=== PATIENT | female | born 1945 | race Caucasian/White ===

== ENCOUNTER 2017-07-14 08:00 | Day surgery (SDC) | payer MEDICARE ==
[2017-07-14 08:45] VITALS: BP 134/79; PULSE 84; RESP 14; TEMP 98; O2SAT 100
[2017-07-14] MEDS ORDERED: LIDOCAINE HCL 1% 20 ML VIAL ONE (09:23)
--- NOTE | 2017-07-14 09:29 | RADRPT ---
EXAM DATE/TIME: 07/14/2017 09:03 [facility] COMPARISON: No previous studies available for comparison. INDICATIONS : Post left thoracentesis. MEDICAL HISTORY : None. SURGICAL HISTORY : None. ENCOUNTER: Initial ACUITY: 1 day PAIN SCORE: 0/10 LOCATION: Left chest FINDINGS: No significant pneumothorax status post left-sided thoracentesis. There is partial left upper lobe co llapse and trace residual effusion. Right lung is clear. Cardiomediastinal contours are within normal limits. Bony thorax is intact. CONCLUSION: 1. Near interval resolution of left sided pleural effusion following thoracentesis without pneumothor ax. 2. Partial left upper lobe collapse. This is an atypical pattern for compressive atelectasis. Conside r further evaluation for endobronchial lesion as clinically warranted. Yousif Westbrook MD on July 14, 2017 at 9:24 Board Certified Radiologist. This report was verified electronically.
[2017-07-14 09:31] VITALS: BP 90/40; PULSE 72; RESP 18; TEMP 97.3; O2SAT 100
[2017-07-14 09:46] VITALS: BP 91/46; PULSE 74; RESP 17; O2SAT 100
--- NOTE | 2017-07-14 09:56 | RADRPT ---
EXAM DATE/TIME: 07/14/2017 08:38 [facility] COMPARISON: No previous studies available for comparison. INDICATIONS : Left pleural effusion. MEDICAL HISTORY : Breast cancer. Pleural effusion. SURGICAL HISTORY : Left thoracentesis. ENCOUNTER: Initial ACUITY: 1 day PAIN SCORE: 2/10 LOCATION: Left chest FLUID: Total volume of 950 cc of clear, yellow fluid was removed. Fluid was sent to lab for ordered studies. TECHNIQUE: 1. Ultrasound guidance for thoracentesis. 2. Thoracentesis. The risks, benefits, and alternatives to ultrasound guided thoracentesis were explained to the patien t in lay simple terms, including the risk of bleeding and infection. Written and verbal informed con sent was obtained. Appropriate area for thoracentesis was marked under ultrasound guidance with the patient in the uprig ht position. Overlying skin was prepped and draped in the usual sterile fashion and with local anest hetic, a dermatotomy was made with an 11 blade scalpel. A 6 Japanese thoracentesis catheter was placed in the pleural space and fluid was removed. Catheter was then removed and a sterile dressing applie d. There were no immediate complications. The patient tolerated the procedure well and the left the ultrasound suite in stable condition. Chest radiograph is to be obtained. CONCLUSION: Uncomplicated ultrasound guided thoracentesis. Palomo Bedoya MD on July 14, 2017 at 9:55 Board Certified Radiologist. This report was verified electronically.
[2017-07-14 10:33] LABS: TOTAL PROTEIN,PLEURAL FLUID 4.7 GM/DL
[2017-07-14 11:16] LABS: PLEURAL FLUID LYMPHS 90 %
== END 2017-07-14 09:57 | disposition home or self-care (01) ==
LOC: HRAD 08:00 → HRIP 08:02 → HRAD 09:57
PROVIDERS: ATTEND Internal Medicine Hematology & Oncology
DX: J90 Pleural effusion, not elsewhere classified (principal); Z85.3 Personal history of malignant neoplasm of breast
CPT/HCPCS: 32555; 71010; 82945; 84157; 87015; 87070; 87116; 87205; 87206; 88112; 88305; 89051; C1729

== ENCOUNTER 2017-10-25 09:56 | Emergency (ER) | payer MEDICARE ==
[~2017-10-25] VITALS: Ht 157.5 cm; Wt 45.0 kg
[2017-10-25 09:58] VITALS: BP 188/90; PULSE 94; RESP 18; TEMP 97.7; O2SAT 97
[2017-10-25] MEDS ORDERED: MIDAZOLAM HCL 2 MG/2 ML VIAL ONE (10:18)
[2017-10-25] MEDS ORDERED: ALPRAZolam 0.5 MG TAB PO ONE (10:45)
[2017-10-25] MEDS ORDERED: SODIUM CHLORIDE 0.9% FLUSH 10 ML FLUSH IVF PRN (10:45)
--- NOTE | 2017-10-25 10:52 | PD ---
HPI Chief Complaint: Respiratory Symptoms Time Seen by Provider: 10:38 Travel History International Travel<30 days: No Contact w/Intl Traveler<30days: No Traveled to known affect area: No History of Present Illness HPI The patient is a 72-year-old female who presents to the emergency department for shortness of breath. The patient has a history of breast cancer. Intermittently for the last 30 years. The patient is undergone chemotherapy, radiation therapy, and mastectomy. The patient had reactivation of her medication and is currently on chemotherapy pill, is currently followed by Dr. Gore. The patient moved from [place] 6 months ago, has been seen Dr. Gore, has one previous episode of pleural effusion on the left that was drained. However, she was advised that she had a new pleural effusion on the right that may need to be drained. The patient called the oncology office and they referred her to the emergency department. The shortness of breath has been progressing over the last month, is worse with lying supine as well as exertion. She denies any chest pain, diaphoresis, nausea, or vomiting associated with shortness of breath. However, she does state she's had some moderate nausea since she started a new chemotherapy pill. The patient denies any history of pulmonary embolism or DVT. PFSH Past Medical History Hx Anticoagulant Therapy: Yes (asa) Social History Alcohol Use: No Tobacco Use: No Substance Use: No Allergies-Medications (Allergen,Severity, Reaction): Coded Allergies: No Known Allergies (Unverified , 10/25/17) Review of Systems Except as stated in HPI: all other systems reviewed are Neg General / Constitutional: No: Fever HENT: No: Lightheadedness Cardiovascular: Positive: Dyspnea on exertion, No: Chest Pain or Discomfort Respiratory: Positive: Shortness of Breath, Orthopnea Gastrointestinal: Positive: Nausea (secondary to her chemotherapy medication ) , No: Vomiting, Abdominal Pain Musculoskeletal: No: Weakness Physical Exam Narrative GENERAL: Awake, alert, pleasant 72-year-old female who appears her stated age and is in no acute respiratory distress. SKIN: Focused skin assessment warm/dry. HEAD: Atraumatic. Normocephalic. EYES: Pupils equal and round. No scleral icterus. No injection or drainage. ENT: No nasal bleeding or discharge. Mucous membranes pink and moist. NECK: Trachea midline. No JVD. CARDIOVASCULAR: Regular rate and rhythm. No murmur appreciated. RESPIRATORY: No accessory muscle use. Diminished breath sounds of the right and left base. GASTROINTESTINAL: Abdomen soft, non-tender, nondistended. MUSCULOSKELETAL: No obvious deformities. No clubbing. No cyanosis. No edema. Calves are soft bilaterally. NEUROLOGICAL: Awake and alert. No obvious cranial nerve deficits. Motor grossly within normal limits. Normal speech. PSYCHIATRIC: Appropriate mood and affect; insight and judgment normal. Data Data Last Documented VS Vital Signs Date Time Temp Pulse Resp B/P (MAP) Pulse Ox O2 Delivery O2 Flow Rate FiO2 10/25/17 10:26 95 25 95 Room Air 10/25/17 09:58 97.7 188/90 (122) Orders Orders Fentanyl Inj (Fentanyl Inj) (10/25/17 10:18) Midazolam Inj (Versed Inj) (10/25/17 10:18) Complete Blood Count With Diff (10/25/17 10:44) Comprehensive Metabolic Panel (10/25/17 10:44) B-Type Natriuretic Peptide (10/25/17 10:44) Act Partial Throm Time (Ptt) (10/25/17 10:44) Prothrombin Time / Inr (Pt) (10/25/17 10:44) Magnesium (Mg) (10/25/17 10:44) Ckmb (Isoenzyme) Profile (10/25/17 10:44) Troponin I (10/25/17 10:44) Iv Access Insert/Monitor (10/25/17 10:44) Electrocardiogram (10/25/17 10:44) Ecg Monitoring (10/25/17 10:44) Oximetry (10/25/17 10:44) Oxygen Administration (10/25/17 10:44) Chest, Single Ap (10/25/17 10:44) Sodium Chloride 0.9% Flush (Ns Flush) (10/25/17 10:45) Alprazolam (Xanax) (10/25/17 10:45) Labs Laboratory Tests Test 10/25/17 11:10 White Blood Count 5.6 TH/MM3 Red Blood Count 3.73 MIL/MM3 Hemoglobin 13.3 GM/DL Hematocrit 38.9 % Mean Corpuscular Volume 104.3 FL Mean Corpuscular Hemoglobin 35.6 PG Mean Corpuscular Hemoglobin Concent 34.2 % Red Cell Distribution Width 16.3 % Platelet Count 176 TH/MM3 Mean Platelet Volume 9.2 FL Neutrophils (%) (Auto) 73.5 % Lymphocytes (%) (Auto) 11.5 % Monocytes (%) (Auto) 12.0 % Eosinophils (%) (Auto) 1.8 % Basophils (%) (Auto) 1.2 % Neutrophils # (Auto) 4.1 TH/MM3 Lymphocytes # (Auto) 0.6 TH/MM3 Monocytes # (Auto) 0.7 TH/MM3 Eosinophils # (Auto) 0.1 TH/MM3 Basophils # (Auto) 0.1 TH/MM3 CBC Comment DIFF FINAL Differential Comment Prothrombin Time 10.6 SEC Prothromb Time International Ratio 1.0 RATIO Activated Partial Thromboplast Time 26.0 SEC Blood Urea Nitrogen 9 MG/DL Creatinine 0.76 MG/DL Random Glucose 96 MG/DL Total Protein 6.8 GM/DL Albumin 3.3 GM/DL Calcium Level 9.1 MG/DL Magnesium Level 2.0 MG/DL Alkaline Phosphatase 91 U/L Aspartate Amino Transf (AST/SGOT) 60 U/L Alanine Aminotransferase (ALT/SGPT) 45 U/L Total Bilirubin 0.6 MG/DL Sodium Level 137 MEQ/L Potassium Level 4.1 MEQ/L Chloride Level 102 MEQ/L Carbon Dioxide Level 27.3 MEQ/L Anion Gap 8 MEQ/L Estimat Glomerular Filtration Rate 74 ML/MIN Total Creatine Kinase 69 U/L Troponin I LESS THAN 0.02 NG/ML B-Type Natriuretic Peptide 51 PG/ML MDM Medical Decision Making Medical Screen Exam Complete: Yes Emergency Medical Condition: Yes Medical Record Reviewed: Yes Interpretation(s) EKG reveals sinus rhythm with frequent ectopic premature complex. Last Impressions Chest X-Ray 10/25/17 1044 Signed Impressions: Service Date/Time: Wednesday, October 25, 2017 10:56 - CONCLUSION: 1. Bilateral effusions larger on the left than the right with consolidative change in the lung bases. Hussein Floyd MD Laboratory Tests Test 10/25/17 11:10 White Blood Count 5.6 TH/MM3 Red Blood Count 3.73 MIL/MM3 Hemoglobin 13.3 GM/DL Hematocrit 38.9 % Mean Corpuscular Volume 104.3 FL Mean Corpuscular Hemoglobin 35.6 PG Mean Corpuscular Hemoglobin Concent 34.2 % Red Cell Distribution Width 16.3 % Platelet Count 176 TH/MM3 Mean Platelet Volume 9.2 FL Neutrophils (%) (Auto) 73.5 % Lymphocytes (%) (Auto) 11.5 % Monocytes (%) (Auto) 12.0 % Eosinophils (%) (Auto) 1.8 % Basophils (%) (Auto) 1.2 % Neutrophils # (Auto) 4.1 TH/MM3 Lymphocytes # (Auto) 0.6 TH/MM3 Monocytes # (Auto) 0.7 TH/MM3 Eosinophils # (Auto) 0.1 TH/MM3 Basophils # (Auto) 0.1 TH/MM3 CBC Comment DIFF FINAL Differential Comment Prothrombin Time 10.6 SEC Prothromb Time International Ratio 1.0 RATIO Activated Partial Thromboplast Time 26.0 SEC Blood Urea Nitrogen 9 MG/DL Creatinine 0.76 MG/DL Random Glucose 96 MG/DL Total Protein 6.8 GM/DL Albumin 3.3 GM/DL Calcium Level 9.1 MG/DL Magnesium Level 2.0 MG/DL Alkaline Phosphatase 91 U/L Aspartate Amino Transf (AST/SGOT) 60 U/L Alanine Aminotransferase (ALT/SGPT) 45 U/L Total Bilirubin 0.6 MG/DL Sodium Level 137 MEQ/L Potassium Level 4.1 MEQ/L Chloride Level 102 MEQ/L Carbon Dioxide Level 27.3 MEQ/L Anion Gap 8 MEQ/L Estimat Glomerular Filtration Rate 74 ML/MIN Total Creatine Kinase 69 U/L Troponin I LESS THAN 0.02 NG/ML B-Type Natriuretic Peptide 51 PG/ML Differential Diagnosis Differential diagnosis includes pleural effusion, pulmonary edema, pneumonia, pulmonary embolism, acute coronary syndrome, cardiomyopathy, metastatic disease. Narrative Course IV was established, labs are drawn and sent, and the patient was placed on cardiac telemetry monitoring and continuous pulse oximetry monitoring. EKG was ordered and interpreted. Chest x-ray was obtained. Chest x-ray does reveal bilateral effusions, left greater than the right. Consolidative changes noted in the bases bilaterally. BNP is unremarkable. Laboratory evaluation is unremarkable. The patient does have bilateral effusions, left greater than right, may benefit from therapeutic thoracentesis. A call was placed to the patient's oncologist, Dr. Gore, and Dr. Dykes was on-call. The patient will be referred to outpatient interventional radiology for outpatient therapeutic ultrasound-guided thoracentesis. Patient is advised to return if symptoms worsen or progress. Diagnosis Primary Impression: Bilateral pleural effusion Additional Instructions: Please provide the patient a copy of her x-ray results and lab results at discharge. Call [facility] outpatient to schedule outpatient thoracentesis by interventional radiology. Med/Other Pt SpecificInfo: No Change to Meds Disposition: 01 DISCHARGE HOME Condition: Stable Serafin Law MD Oct 25, 2017 10:52
--- NOTE | 2017-10-25 11:09 | RADRPT ---
EXAM DATE/TIME: 10/25/2017 10:56 [facility] COMPARISON: CHEST EXPIRATION ONLY, July 14, 2017, 9:03. INDICATIONS : Short of breath. MEDICAL HISTORY : metastatic breast cancer. breast cancer 30 years ago and 5 years ago also SURGICAL HISTORY : None. ENCOUNTER: Initial ACUITY: 1 week PAIN SCORE: 0/10 LOCATION: Bilateral chest FINDINGS: The exam demonstrates a moderate-sized pleural effusion on the left. There is a small effusion on the right. There is consolidative change in both lower lobes. There is diffuse interstitial prominence. The heart is normal in size. The visualized bony structures are grossly intact. There are degenerativ e changes throughout the spine. CONCLUSION: 1. Bilateral effusions larger on the left than the right with consolidative change in the lung bases. Hussein Floyd MD on October 25, 2017 at 11:05 Board Certified Radiologist. This report was verified electronically.
[2017-10-25 11:51] LABS: AUTOMATED NEUTROPHIL # 4.1 TH/MM3 (1.8-7.7); BASOPHIL # 0.1 TH/MM3 (0-0.2); BASOPHIL % 1.2 % (0.0-2.0); EOSINOPHIL # 0.1 TH/MM3 (0-0.4); EOSINOPHIL % 1.8 % (0.0-4.0); HEMATOCRIT 38.9 % (35.0-46.0); HEMOGLOBIN 13.3 GM/DL (11.6-15.3); LYMPH % 11.5 % (9.0-44.0); LYMPHOCYTE # 0.6 TH/MM3 (1.0-4.8); MEAN CELL VOLUME 104.3 FL (80.0-100.0); MEAN CORPUSCULAR HEMOGLOBIN 35.6 PG (27.0-34.0); MEAN CORPUSCULAR HGB CONC 34.2 % (32.0-36.0); MEAN PLATELET VOLUME 9.2 FL (7.0-11.0); MONOCYTE # 0.7 TH/MM3 (0-0.9); NEUT % 73.5 % (16.0-70.0); PLATELET COUNT 176 TH/MM3 (150-450); RED BLOOD COUNT 3.73 MIL/MM3 (4.00-5.30); RED CELL DISTRIBUTION WIDTH 16.3 % (11.6-17.2); WHITE BLOOD COUNT 5.6 TH/MM3 (4.0-11.0)
[2017-10-25 11:59] LABS: PROTHROMBIN TIME - PATIENT 10.6 SEC (9.8-11.6)
[2017-10-25 12:00] LABS: ALBUMIN 3.3 GM/DL (3.4-5.0); AST (GOT) 60 U/L (15-37); BICARBONATE 27.3 MEQ/L (21.0-32.0); BLOOD UREA NITROGEN 9 MG/DL (7-18); CALCIUM 9.1 MG/DL (8.5-10.1); CHLORIDE 102 MEQ/L (98-107); CREATININE 0.76 MG/DL (0.50-1.00); GLOMERULAR FILTRATION RATE 74 ML/MIN (>89); GLUCOSE,RANDOM 96 MG/DL (74-106); SODIUM (NA) 137 MEQ/L (136-145)
[2017-10-25 12:01] LABS: ALT (GPT) 45 U/L (10-53)
[2017-10-25 12:05] LABS: ALKALINE PHOSPHATASE 91 U/L (45-117); TOTAL BILIRUBIN ADULT 0.6 MG/DL (0.2-1.0); TOTAL PROTEIN 6.8 GM/DL (6.4-8.2); TROPONIN I LESS THAN 0.02 NG/ML (0.02-0.05)
[2017-10-25] MEDS ORDERED: ASPI-516 CHEW (13:55)
[2017-10-25] MEDS ORDERED: AFIN5TAB PO (13:55)
[2017-10-25] MEDS ORDERED: MULTTAB67 PO (13:55)
[2017-10-25] MEDS ORDERED: BIOTCAP PO (13:55)
[2017-10-25] MEDS ORDERED: CALC12502 PO (13:55)
[2017-10-25] MEDS ORDERED: LEVO100T5 PO (13:55)
[2017-10-25] MEDS ORDERED: ALPR0.5T3 PO (13:55)
[2017-10-25] MEDS ORDERED: EXEM25TA (13:55)
[2017-10-25] MEDS ORDERED: VITA2000 PO (13:55)
[2017-10-25 13:56] VITALS: BP 189/95; PULSE 96; RESP 20; O2SAT 98
[2017-10-25] MEDS ORDERED: ALPR0.25 PO (13:56)
--- NOTE | 2017-10-26 14:26 | EKG ---
Date Performed: 10/25/2017 Time Performed: 11:23:24 PTAGE: 72 years EKG: Sinus rhythm WITH FREQUENT ECTOPIC PREMATURE COMPLEXES POSSIBLE LEFT ATRIAL ENLARGEMENT ABNORMAL RHYTHM ECG NO PREVIOUS TRACING DOCTOR: Marcela Jasso Interpretating Date/Time 10/26/2017 14:25:36
== END 2017-10-25 16:59 | disposition home or self-care (01) ==
LOC: NEPC 09:56
DX: J90 Pleural effusion, not elsewhere classified (principal); R06.02 Shortness of breath; Z85.3 Personal history of malignant neoplasm of breast; R94.31 Abnormal electrocardiogram [ECG] [EKG]
CPT/HCPCS: 71045; 80053; 82550; 83735; 83880; 84484; 85025; 85610; 85730; 93005; 99285; J2250; J3010

== ENCOUNTER 2017-10-28 09:52 | Day surgery (SDC) | payer MEDICARE ==
[~2017-10-28 09:52] MED LIST: AFIN5TAB PO; ALPR0.25 PO; ALPR0.5T3 PO; ASPI-516 CHEW; BIOTCAP PO; CALC12502 PO; EXEM25TA; LEVO100T5 PO; MULTTAB67 PO; VITA2000 PO
--- NOTE | 2017-10-28 11:11 | PD.RAD ---
Post US Procedure Prog Note Pre Procedure Diagnosis: (1) Recurrent left pleural effusion Post Procedure Diagnosis: (1) Recurrent left pleural effusion Procedure Date: Oct 28, 2017 Supervising Radiologist: Niraj Barragan Proceduralist/Assist: Valerie Newton RDMS Anesthesia: Local, Conscious Sedation Plan of Activity Patient to Unit: ROPU Patient Condition: Good See PACS Report for procedural detail/treatment Drainage Procedure Procedure 1 Imaging Guidance: Ultrasound Side: Left Procedure Type: Thoracentesis Drainage: Suction Fluid Removal (CCs): 1100 Fluid Description: Clear, Yellow Plan CXR then monitoring in ROPU prior to discharge. Niraj Barragan MD Oct 28, 2017 11:11
[2017-10-28 11:40] VITALS: BP 124/74; PULSE 86; RESP 20; TEMP 98.4; O2SAT 92
--- NOTE | 2017-10-28 11:45 | RADRPT ---
EXAM DATE/TIME: 10/28/2017 11:27 [facility] COMPARISON: CHEST EXPIRATION ONLY, July 14, 2017, 9:03. INDICATIONS : Post thoracentesis left chest MEDICAL HISTORY : Carcinoma, breast. SURGICAL HISTORY : None. ENCOUNTER: Initial ACUITY: 1 day PAIN SCORE: 0/10 LOCATION: Right chest FINDINGS: A single frontal expiratory view of the chest was performed. There small bilateral pleural effusions. There is bibasilar passive atelectasis. Minimal scarring left mid lung zone. No visible pneumothorax .. The cardio-mediastinal contours and bronchopulmonary markings are unremarkable for an expiratory exam . Osseous structures are intact. CONCLUSION: Bilateral pleural effusions right greater left. Bibasilar passive atelectasis. Kirk Pichardo MD on October 28, 2017 at 11:42 Board Certified Radiologist. This report was verified electronically.
[2017-10-28 11:55] VITALS: BP 134/89; PULSE 78; RESP 20; O2SAT 98
--- NOTE | 2017-10-28 15:27 | RADRPT ---
EXAM DATE/TIME: 10/28/2017 10:29 [facility] COMPARISON: EXTERNAL COMPARISON: CHEST SINGLE AP, October 25, 2017, 10:56. US GUIDED THORACENTESIS LEFT, July 14, 2017, 8:38. [facility] EXPIRATION ONLY, October 28, 2017, 11:27. [facility], XR CHEST PA & LAT , Oct 07 2017, No vember 2016. INDICATIONS : Left pleural effusion. MEDICAL HISTORY : Carcinoma, breast. Mets to liver and bone. Pleural effusion. Depression. Anticoagulant therapy, Asp irin. SURGICAL HISTORY : Tonsillectomy. Thoracentesis. Hernia repair. D&C x3. Mastectomy. ENCOUNTER: Subsequent ACUITY: 3 months PAIN SCORE: 0/10 LOCATION: Left chest FLUID: Total volume of 1,100 cc of clear, yellow fluid was removed. Fluid was discarded. Thoracentesis was therapeutic only. TECHNIQUE: 1. Ultrasound guidance for thoracentesis. 2. Thoracentesis. The risks, benefits, and alternatives to ultrasound guided thoracentesis were explained to the patien t in lay simple terms, including the risk of bleeding and infection. Written and verbal informed con sent was obtained. Appropriate area for thoracentesis was marked under ultrasound guidance with the patient in the uprig ht position. Overlying skin was prepped and draped in the usual sterile fashion and with local anest hetic, a dermatotomy was made with an 11 blade scalpel. A 6 Swedish thoracentesis catheter was placed in the pleural space and fluid was removed. Catheter was then removed and a sterile dressing applie d. There were no immediate complications. The patient tolerated the procedure well and the left the ultrasound suite in stable condition. Chest radiograph is to be obtained. CONCLUSION: Uncomplicated ultrasound guided left thoracentesis. Niraj Barragan MD on October 28, 2017 at 15:25 Board Certified Radiologist. This report was verified electronically.
== END 2017-10-28 12:14 | disposition home or self-care (01) ==
LOC: HRAD 09:52 → HRIP 09:53 → HRAD 12:14
PROVIDERS: ATTEND Emergency Medicine
DX: J90 Pleural effusion, not elsewhere classified (principal); C78.7 Secondary malignant neoplasm of liver and intrahepatic bile duct; C50.919 Malignant neoplasm of unspecified site of unspecified female breast; F32.9 Major depressive disorder, single episode, unspecified
CPT/HCPCS: 32555; 71045; C1729

== ENCOUNTER 2017-11-19 09:24 | Emergency (ER) | payer MEDICARE ==
[~2017-11-19] VITALS: Ht 157.5 cm; Wt 45.5 kg
[2017-11-19] VITALS (7 sets, daily range): BP systolic 129–166; BP diastolic 65–86; PULSE 82–103; RESP 15–22; TEMP 97.4; O2SAT 95–98
--- NOTE | 2017-11-19 10:10 | PD ---
HPI Chief Complaint: Respiratory Symptoms Time Seen by Provider: 09:50 Travel History International Travel<30 days: No Contact w/Intl Traveler<30days: No Traveled to known affect area: No History of Present Illness HPI Patient states she is here for shortness of breath over the past couple of days that does not seem to be improving. Patient states that she has had a previous history of buildup of fluid in her lungs that requires drainage and she believes that this is what is happening again. Denies any active cough fever, nausea, vomiting, diarrhea. Patient denies any alleviating or aggravating factors. Primary CARE Dr. Colin Oncologist Dr. Gore Past medical history significant for breast CA with metastasis to liver and bone currently on oral chemo, hernia repair, a therapeutic thoracentesis was performed by radiology on October 28, 2017 in which 1.1 L of pleural fluid was removed PFSH Past Medical History Hx Anticoagulant Therapy: Yes (asa) Depression: Yes Cancer: Yes (R BREAST, METS TO LIVER AND BONE) Chemotherapy: Yes Diabetes: No Respiratory: Yes Tetanus Vaccination: Unknown ?: Not Menopausal: Yes Dilation and Curettage (D&C): Yes (X3) Past Surgical History Abdominal Surgery: Yes (HERNIA REPAIR) Mastectomy: Yes Tonsillectomy: Yes Family History Family Hypercholesterolemia: Yes Social History Alcohol Use: No Tobacco Use: No Substance Use: No Allergies-Medications (Allergen,Severity, Reaction): Coded Allergies: No Known Allergies (Unverified , 11/19/17) Reported Meds & Prescriptions Reported Meds & Active Scripts Active Reported Alprazolam 0.25 Mg Tab 0.25 Mg PO Q4H PRN Levothyroxine (Levothyroxine Sodium) 100 Mcg Tab 100 Mcg PO DAILY Exemestane 25 Mg Tab Afinitor (Everolimus) 5 Mg Tab 5 Mg PO DAILY Alprazolam 0.5 Mg Tab 0.5 Mg PO HS PRN Biotin 5 Mg Cap 5 Mg PO Vitamin D3 (Cholecalciferol) 2,000 Unit Cap 2,000 Units PO DAILY Multiple Vitamin 1 Tab 1 Tab PO DAILY Calcium Carbonate 500 Mg Calcium (1250 Mg) Tab 1,250 Mg PO BID 1,250 mg calcium carbonate (500 mg elemental calcium) Aspirin 81 Mg Chew 81 Mg CHEW DAILY Review of Systems General / Constitutional: No: Fever Eyes: No: Visual changes HENT: No: Headaches Cardiovascular: No: Chest Pain or Discomfort Respiratory: Positive: Shortness of Breath Gastrointestinal: No: Abdominal Pain Genitourinary: No: Dysuria Musculoskeletal: No: Pain Skin: No Rash Neurologic: No: Weakness Psychiatric: No: Depression Endocrine: No: Polydipsia Hematologic/Lymphatic: No: Easy Bruising Physical Exam Narrative GENERAL: SKIN: Warm and dry. HEAD: Atraumatic. Normocephalic. EYES: Pupils equal and round. No scleral icterus. No injection or drainage. ENT: No nasal bleeding or discharge. Mucous membranes pink and moist. NECK: Trachea midline. No JVD. CARDIOVASCULAR: Regular rate and rhythm. RESPIRATORY: No accessory muscle use. Clear to auscultation upper 1/3 of lungs bilaterally. GASTROINTESTINAL: Abdomen soft, non-tender, nondistended. MUSCULOSKELETAL: Extremities without clubbing, cyanosis, or edema. No obvious deformities. NEUROLOGICAL: Awake and alert. No obvious cranial nerve deficits. Motor grossly within normal limits. Five out of 5 muscle strength in the arms and legs. Normal speech. PSYCHIATRIC: Appropriate mood and affect; insight and judgment normal. Data Data Last Documented VS Vital Signs Date Time Temp Pulse Resp B/P (MAP) Pulse Ox O2 Delivery O2 Flow Rate FiO2 11/19/17 17:51 11/19/17 17:30 98 18 96 Room Air 11/19/17 09:26 97.4 Orders Orders Complete Blood Count With Diff (11/19/17 10:03) Comprehensive Metabolic Panel (11/19/17 10:03) B-Type Natriuretic Peptide (11/19/17 10:03) Troponin I (11/19/17 10:03) Electrocardiogram (11/19/17 10:03) Ecg Monitoring (11/19/17 10:03) Oximetry (11/19/17 10:03) Oxygen Administration (11/19/17 10:03) Ct Pulmonary Angiogram (11/19/17 10:03) Sodium Chloride 0.9% Flush (Ns Flush) (11/19/17 10:15) Iohexol 350 Inj (Omnipaque 350 Inj) (11/19/17 12:27) Invasive Rad Dept Consult (11/19/17 ) Prothrombin Time / Inr (Pt) (11/19/17 13:15) Act Partial Throm Time (Ptt) (11/19/17 13:15) Us Guided Thoracentesis (11/19/17 ) Consent (11/19/17 13:15) Chest, Expiration Only (11/19/17 ) Lidocaine Pf 1% Inj (Xylocaine-Mpf 1% In (11/19/17 16:49) Ed Discharge Order (11/19/17 17:11) Labs Laboratory Tests Test 11/19/17 10:02 11/19/17 14:51 White Blood Count 4.9 TH/MM3 Red Blood Count 4.33 MIL/MM3 Hemoglobin 14.5 GM/DL Hematocrit 42.2 % Mean Corpuscular Volume 97.4 FL Mean Corpuscular Hemoglobin 33.5 PG Mean Corpuscular Hemoglobin Concent 34.4 % Red Cell Distribution Width 15.7 % Platelet Count 167 TH/MM3 Mean Platelet Volume 9.4 FL Neutrophils (%) (Auto) 72.6 % Lymphocytes (%) (Auto) 15.8 % Monocytes (%) (Auto) 8.8 % Eosinophils (%) (Auto) 1.5 % Basophils (%) (Auto) 1.3 % Neutrophils # (Auto) 3.5 TH/MM3 Lymphocytes # (Auto) 0.8 TH/MM3 Monocytes # (Auto) 0.4 TH/MM3 Eosinophils # (Auto) 0.1 TH/MM3 Basophils # (Auto) 0.1 TH/MM3 CBC Comment DIFF FINAL Differential Comment Blood Urea Nitrogen 9 MG/DL Creatinine 0.84 MG/DL Random Glucose 95 MG/DL Total Protein 7.0 GM/DL Albumin 3.3 GM/DL Calcium Level 8.6 MG/DL Alkaline Phosphatase 84 U/L Aspartate Amino Transf (AST/SGOT) 71 U/L Alanine Aminotransferase (ALT/SGPT) 34 U/L Total Bilirubin 0.8 MG/DL Sodium Level 139 MEQ/L Potassium Level 4.4 MEQ/L Chloride Level 104 MEQ/L Carbon Dioxide Level 27.3 MEQ/L Anion Gap 8 MEQ/L Estimat Glomerular Filtration Rate 66 ML/MIN Troponin I LESS THAN 0.02 NG/ML B-Type Natriuretic Peptide 40 PG/ML Prothrombin Time 10.9 SEC Prothromb Time International Ratio 1.1 RATIO Activated Partial Thromboplast Time 24.[address] [facility] Medical Decision Making Medical Screen Exam Complete: Yes Emergency Medical Condition: Yes Medical Record Reviewed: Yes Interpretation(s) EKG: Motion artifact, sinus rhythm with occasional PVCs, rate of 93, normal intervals, no STEMI pattern noted. Pulse ox: Excellent PLETH wave. 98-99 on room air which is within normal limits Differential Diagnosis Malignant pleural effusion versus pneumonia versus PE versus atypical STEMI versus atypical cardiac presentation versus pericardial effusion Narrative Course PATIENT HAD 1.4LITER DRAINED OUT OF LEFT LUNG AND WILL RETURN ON WEDNESDAY TO HAVE RIGHT LUNG DRAINED BY ULTRASOUND GUIDED. Diagnosis Primary Impression: DYSPNEA Additional Impression: RECURRENT PLEURAL EFFUSION SP LEFT THERAPEUTIC THORACENTESIS Additional Instructions: PLEASE CALL [phone] TO SCHEDULE THE NEXT CLOSEST APPOINTMENT TIME TO HAVE YOUR RIGHT LUNG DRAINED Disposition: 01 DISCHARGE HOME Condition: Stable Juan Hernandez MD Nov 19, 2017 10:10
[2017-11-19] MEDS ORDERED: SODIUM CHLORIDE 0.9% FLUSH 10 ML FLUSH IVF PRN (10:15)
[2017-11-19 10:40] LABS: AUTOMATED NEUTROPHIL # 3.5 TH/MM3 (1.8-7.7); BASOPHIL # 0.1 TH/MM3 (0-0.2); BASOPHIL % 1.3 % (0.0-2.0); EOSINOPHIL # 0.1 TH/MM3 (0-0.4); EOSINOPHIL % 1.5 % (0.0-4.0); HEMATOCRIT 42.2 % (35.0-46.0); HEMOGLOBIN 14.5 GM/DL (11.6-15.3); LYMPH % 15.8 % (9.0-44.0); LYMPHOCYTE # 0.8 TH/MM3 (1.0-4.8); MEAN CELL VOLUME 97.4 FL (80.0-100.0); MEAN CORPUSCULAR HEMOGLOBIN 33.5 PG (27.0-34.0); MEAN CORPUSCULAR HGB CONC 34.4 % (32.0-36.0); MEAN PLATELET VOLUME 9.4 FL (7.0-11.0); MONO % 8.8 % (0.0-8.0); MONOCYTE # 0.4 TH/MM3 (0-0.9); NEUT % 72.6 % (16.0-70.0); PLATELET COUNT 167 TH/MM3 (150-450); RED BLOOD COUNT 4.33 MIL/MM3 (4.00-5.30); RED CELL DISTRIBUTION WIDTH 15.7 % (11.6-17.2); WHITE BLOOD COUNT 4.9 TH/MM3 (4.0-11.0)
[2017-11-19 11:10] LABS: ALBUMIN 3.3 GM/DL (3.4-5.0); ALT (GPT) 34 U/L (10-53); AST (GOT) 71 U/L (15-37); BICARBONATE 27.3 MEQ/L (21.0-32.0); BLOOD UREA NITROGEN 9 MG/DL (7-18); CALCIUM 8.6 MG/DL (8.5-10.1); CHLORIDE 104 MEQ/L (98-107); CREATININE 0.84 MG/DL (0.50-1.00); GLOMERULAR FILTRATION RATE 66 ML/MIN (>89); GLUCOSE,RANDOM 95 MG/DL (74-106); SODIUM (NA) 139 MEQ/L (136-145)
[2017-11-19 11:13] LABS: ALKALINE PHOSPHATASE 84 U/L (45-117); TOTAL BILIRUBIN ADULT 0.8 MG/DL (0.2-1.0); TROPONIN I LESS THAN 0.02 NG/ML (0.02-0.05)
[2017-11-19] MEDS ORDERED: IOHEXOL 350 MG/ML 10 ML VIAL (for RAD DIAG) IVCONTRAST ONE (12:27)
--- NOTE | 2017-11-19 12:36 | RADRPT ---
EXAM DATE/TIME: 11/19/2017 12:12 [facility] COMPARISON: No previous studies available for comparison. INDICATIONS : Shortnes of breath for a few weeks. IV CONTRAST: 65 cc Omnipaque 350 (iohexol) IV RADIATION DOSE: 5.60 CTDIvol (mGy) MEDICAL HISTORY : Carcinoma, breast. SURGICAL HISTORY : Mastectomy, right. ENCOUNTER: Initial ACUITY: 2 weeks PAIN SCALE: 0/10 LOCATION: Right TECHNIQUE: Volumetric scanning of the chest was performed using a pulmonary embolism protocol MIP images were re constructed. Using automated exposure control and adjustment of the mA and/or kV according to patien t size, radiation dose was kept as low as reasonably achievable to obtain optimal diagnostic quality images. DICOM format image data is available electronically for review and comparison. Follow-up recommendations for detected pulmonary nodules are based at a minimum on nodule size and pa tient risk factors according to Fleischner Society Guidelines. FINDINGS: PULMONARY ARTERIES: No filling defects are seen in the pulmonary arteries through the segmental level. LUNGS: There is bibasilar densities likely atelectasis. Atelectatic lung medially and a left upper lobe. PLEURAE: There is no pleural thickening or pleural effusion. MEDIASTINUM: There is good visualization of the great vessels of the middle mediastinum. No evidence of mediastin al or hilar adenopathy/mass. MUSCULOSKELETAL: Sclerotic skeletal metastasis throughout the axial skeleton. MISCELLANEOUS: The visualized upper abdominal organs demonstrate multiple metastatic lesions throughout the liver. CONCLUSION: 1. No evidence for pulmonary embolism. 2. Large bilateral pleural effusions. 3. Atelectatic medial left upper lobe, endobronchial lesion cannot be excluded. 4. Metastatic disease throughout the liver. 5. Bony metastasis. Michi Kwong MD on November 19, 2017 at 12:28 Board Certified Radiologist. This report was verified electronically.
--- NOTE | 2017-11-19 14:54 | EKG ---
Date Performed: 11/19/2017 Time Performed: 09:41:00 PTAGE: 72 years EKG: Sinus rhythm WITH OCCASIONAL VENTRICULAR PREMATURE COMPLEXES POSSIBLE LEFT ATRIAL ENLARGEMENT LOW QRS VOLTAGE Sin ce previous tracing, no significant change noted ABNORMAL ECG PREVIOUS TRACING : 10/25/2017 11.23 DOCTOR: Marcela Jasso Interpretating Date/Time 11/19/2017 14:52:27
[2017-11-19 15:29] LABS: INTERNATIONAL NORMALIZED RATIO 1.1 RATIO; PROTHROMBIN TIME - PATIENT 10.9 SEC (9.8-11.6)
--- NOTE | 2017-11-19 16:30 | RADRPT ---
EXAM DATE/TIME: 11/19/2017 15:42 [facility] COMPARISON: US GUIDED THORACENTESIS LEFT, October 28, 2017, 10:29. INDICATIONS : Left pleural effusion. MEDICAL HISTORY : Carcinoma, breast. Depression. Mets to liver and bone. Chemotherapy. Anticoagulant therapy. SURGICAL HISTORY : Tonsillectomy. Mastectomy, right. Hernia repair. Dilation and curettage. ENCOUNTER: [facility] ACUITY: 2 weeks PAIN SCORE: 1/10 LOCATION: Left chest FLUID: Total volume of 1200 cc of clear, yellow fluid was removed. Fluid was discarded. Thoracentesis was therapeutic only. TECHNIQUE: 1. Ultrasound guidance for thoracentesis. 2. Thoracentesis. The risks, benefits, and alternatives to ultrasound guided thoracentesis were explained to the patien t in lay simple terms, including the risk of bleeding and infection. Written and verbal informed con sent was obtained. Appropriate area for thoracentesis was marked under ultrasound guidance with the patient in the uprig ht position. Overlying skin was prepped and draped in the usual sterile fashion and with local anest hetic, a dermatotomy was made with an 11 blade scalpel. A 6 Ghanaian thoracentesis catheter was placed in the pleural space and fluid was removed. Catheter was then removed and a sterile dressing applie d. There were no immediate complications. The patient tolerated the procedure well and the left the ultrasound suite in stable condition. Chest radiograph is to be obtained. CONCLUSION: Uncomplicated ultrasound guided thoracentesis. Charles Ferrera MD on November 19, 2017 at 16:27 Board Certified Radiologist. This report was verified electronically.
--- NOTE | 2017-11-19 16:38 | RADRPT ---
EXAM DATE/TIME: 11/19/2017 16:22 [facility] COMPARISON: CHEST EXPIRATION ONLY, October 28, 2017, 11:27. INDICATIONS : Post thoracentesis. MEDICAL HISTORY : Carcinoma, breast. SURGICAL HISTORY : Mastectomy, right. ENCOUNTER: Initial ACUITY: 1 day PAIN SCORE: 0/10 LOCATION: Bilateral chest FINDINGS: No definite pleural line is identified to suggest pneumothorax. There are several skin folds overlyin g left hemithorax. Small residual pleural effusions are noted. Right basilar patchiness is noted cons istent with atelectasis and/or infiltrate. Left mid lung field atelectasis is noted. CONCLUSION: No definite pneumothorax identified status post thoracentesis. Small residual pleural effusions noted . Right basilar patchiness consistent with atelectasis and/or infiltrate. Left mid lung field atelect asis. Charles Ferrera MD on November 19, 2017 at 16:30 Board Certified Radiologist. This report was verified electronically.
[2017-11-19] MEDS ORDERED: LIDOCAINE HCL 1% PF 30 ML VIAL ONE (16:49)
== END 2017-11-19 17:56 | disposition home or self-care (01) ==
LOC: NEPC 09:24
DX: R06.00 Dyspnea, unspecified (principal); R06.02 Shortness of breath; R94.31 Abnormal electrocardiogram [ECG] [EKG]; J90 Pleural effusion, not elsewhere classified; F32.9 Major depressive disorder, single episode, unspecified; Z85.3 Personal history of malignant neoplasm of breast; Z85.05 Personal history of malignant neoplasm of liver; Z85.830 Personal history of malignant neoplasm of bone; Z79.82 Long term (current) use of aspirin
CPT/HCPCS: 32555; 71045; 71275; 80053; 83880; 84484; 85025; 85610; 85730; 93005; 99285; C1729; Q9967

== ENCOUNTER 2017-11-26 09:43 | Day surgery (SDC) | payer MEDICARE ==
[2017-11-26 10:12] VITALS: BP 120/73; PULSE 89; RESP 14; TEMP 96.7; O2SAT 92
[2017-11-26 11:00] VITALS: BP 104/69; PULSE 80; RESP 18; TEMP 97.7; O2SAT 96
[2017-11-26] MEDS ORDERED: LIDOCAINE HCL 1% 20 ML VIAL ONE (11:10)
[2017-11-26 11:15] VITALS: BP 110/70; PULSE 82; RESP 18; O2SAT 92
--- NOTE | 2017-11-26 11:21 | RADRPT ---
EXAM DATE/TIME: 11/26/2017 10:02 [facility] COMPARISON: No previous studies available for comparison. INDICATIONS : Right pleural effusion. MEDICAL HISTORY : Carcinoma, breast. Carcinoma, breast. Depression. Mets to liver and bone. Chemotherapy. Anticoagula nt therapy. SURGICAL HISTORY : Tonsillectomy. Mastectomy, right. Hernia repair. Dilation and curettage. ENCOUNTER: Initial ACUITY: 1 day PAIN SCORE: 0/10 LOCATION: Right chest FLUID: Total volume of 1300 cc of clear, yellow fluid was removed. Fluid was discarded. Thoracentesis was therapeutic only. TECHNIQUE: 1. Ultrasound guidance for thoracentesis. 2. Thoracentesis. The risks, benefits, and alternatives to ultrasound guided thoracentesis were explained to the patien t in lay simple terms, including the risk of bleeding and infection. Written and verbal informed con sent was obtained. Appropriate area for thoracentesis was marked under ultrasound guidance with the patient in the uprig ht position. Overlying skin was prepped and draped in the usual sterile fashion and with local anest hetic, a dermatotomy was made with an 11 blade scalpel. A 6 Hebrew thoracentesis catheter was placed in the pleural space and fluid was removed. Catheter was then removed and a sterile dressing applie d. There were no immediate complications. The patient tolerated the procedure well and the left the ultrasound suite in stable condition. Chest radiograph is to be obtained. CONCLUSION: Uncomplicated ultrasound guided thoracentesis. Yousif Westbrook MD on November 26, 2017 at 11:20 Board Certified Radiologist. This report was verified electronically.
--- NOTE | 2017-11-26 11:24 | RADRPT ---
EXAM DATE/TIME: 11/26/2017 10:50 [facility] COMPARISON: CHEST EXPIRATION ONLY, November 19, 2017, 16:22. INDICATIONS : Status post right thoracentesis. MEDICAL HISTORY : Carcinoma, breast. SURGICAL HISTORY : Mastectomy, right ENCOUNTER: Initial ACUITY: 1 day PAIN SCORE: 3/10 LOCATION: Right chest FINDINGS: A single frontal expiratory view of the chest was performed. Interval resolution of right-sided pleur al effusion following thoracentesis without pneumothorax. Progression of left-sided effusion, now mod erate to large in size. Associated airspace disease in the lower lobes. The cardio-mediastinal contours and bronchopulmonary markings are unremarkable for an expiratory exam . Osseous structures are intact. CONCLUSION: 1. No significant pneumothorax status post right sided thoracentesis. 2. Moderate to large left pleural effusion. Yousif Westbrook MD on November 26, 2017 at 11:20 Board Certified Radiologist. This report was verified electronically.
== END 2017-11-26 11:45 | disposition home or self-care (01) ==
LOC: HRAD 09:43 → HRIP 09:51 → HRAD 11:45
PROVIDERS: ATTEND Emergency Medicine
DX: J90 Pleural effusion, not elsewhere classified (principal); C78.7 Secondary malignant neoplasm of liver and intrahepatic bile duct; C50.919 Malignant neoplasm of unspecified site of unspecified female breast
CPT/HCPCS: 32555; 71045; C1729

== ENCOUNTER → 2017-12-17 | Outpatient (CLI) | payer MEDICARE ==
[~2017-12-17] MED LIST changes: +ECASA81 PO; -EXEM25TA; +EXEM25TA PO; +GINS100C PO; +LEVO-168 PO; +ZOFR4TAB PO
--- NOTE | 2017-12-17 11:46 | RADRPT ---
EXAM DATE/TIME: 12/17/2017 11:17 [facility] COMPARISON: CHEST EXPIRATION ONLY, November 26, 2017, 10:50. INDICATIONS : Evaluate for pneumonia, pneumothorax, or communicable disease. Pre-op. MEDICAL HISTORY : Carcinoma, breast. SURGICAL HISTORY : Mastectomy, right. ENCOUNTER: Initial ACUITY: 1 day PAIN SCORE: 0/10 LOCATION: Bilateral chest FINDINGS: PA and lateral views of the chest show a small pleural effusion on the right which is larger than the prior study and a moderate size pleural effusion on the left which is stable to slightly smaller fro m the prior study. There is associated consolidation involving the adjacent lung parenchyma bilateral ly. This is stable. Heart is normal in size. Bony structures are unremarkable with exception of a sco liotic lumbar spine with degenerative changes. CONCLUSION: 1. Bilateral pleural effusions and adjacent atelectasis as detailed above. Rudi Boyd Jr., MD on December 17, 2017 at 11:43 Board Certified Radiologist. This report was verified electronically.
[2017-12-17 11:49] LABS: HEMATOCRIT 41.5 % (35.0-46.0); HEMOGLOBIN 14.6 GM/DL (11.6-15.3); MEAN CELL VOLUME 92.5 FL (80.0-100.0); MEAN CORPUSCULAR HEMOGLOBIN 32.4 PG (27.0-34.0); MEAN CORPUSCULAR HGB CONC 35.1 % (32.0-36.0); MEAN PLATELET VOLUME 8.6 FL (7.0-11.0); PLATELET COUNT 178 TH/MM3 (150-450); RED BLOOD COUNT 4.49 MIL/MM3 (4.00-5.30); WHITE BLOOD COUNT 3.5 TH/MM3 (4.0-11.0)
[2017-12-17 11:51] LABS: INTERNATIONAL NORMALIZED RATIO 1.1 RATIO; PROTHROMBIN TIME - PATIENT 10.8 SEC (9.8-11.6)
[2017-12-17 12:23] LABS: BICARBONATE 27.8 MEQ/L (21.0-32.0); CALCIUM 9.3 MG/DL (8.5-10.1); CREATININE 0.93 MG/DL (0.50-1.00)
[2017-12-17 12:35] LABS: BACTERIA, URINE OCC /hpf; BILIRUBIN, URINE NEG (NEG); BLOOD, URINE LARGE (NEG); GLUCOSE,URINE NEG (NEG); KETONE, URINE TRACE mg/dL (NEG); MUCUS URINE FEW /lpf (OCC); NITRITE,URINE NEG (NEG); PH, URINE 5.5 (5.0-8.5); URINE LEUKOCYTE ESTERASE SMALL (NEG)
[2017-12-17 12:42] LABS: URINE COLOR LIGHT-RED (YELLW/STRAW)
== END ==
LOC: CPRE 10:02
PROVIDERS: ATTEND Thoracic Surgery (Cardiothoracic Vascular Surgery)
DX: Z01.812 Encounter for preprocedural laboratory examination (principal); Z01.811 Encounter for preprocedural respiratory examination; C80.1 Malignant (primary) neoplasm, unspecified; J91.0 Malignant pleural effusion
CPT/HCPCS: 36415; 71046; 80048; 81001; 85027; 85610; 85730

== ENCOUNTER 2017-12-21 10:01 | Inpatient (IN) | payer MEDICARE ==
[2017-12-21] VITALS (10 sets, daily range): BP systolic 101–121; BP diastolic 65–76; PULSE 77–106; RESP 18–19; TEMP 97–97.3; O2SAT 92–98
[~2017-12-21] VITALS: Ht 157.5 cm; Wt 46.5 kg
[~2017-12-21 10:01] MED LIST changes: -ASPI-516 CHEW; -LEVO100T5 PO
[2017-12-21] MEDS ORDERED: SODIUM CHLORID 0.9% 500 ML IV PRN (10:30)
[2017-12-21] MEDS ORDERED: CHLORHEXIDINE GLUCONATE 2 % 1 PACK (2 CLOTHS) TOPICAL PRN (10:30)
[2017-12-21] MEDS ORDERED: METOPROLOL TARTRATE 25 MG TAB PO PRN (10:30)
[2017-12-21] MEDS ORDERED: LACTATED RINGER'S 1000 ML IV PRN (10:30)
[2017-12-21] MEDS ORDERED: POVIDONE IODINE 5% (ANTISEPSIS KIT) 4 APPLICATIONS EACH NARE PRN (10:30)
[2017-12-21] MEDS ORDERED: fentaNYL CITRATE 250 MCG/5 ML AMP ONE (11:43)
[2017-12-21] MEDS ORDERED: PHENYLEPH/NS 1000 MCG/10 ML SYR IV ONE (12:00)
[2017-12-21] MEDS ORDERED: NEOSTIGMINE 5 MG/5 ML SYRINGE IV PUSH ONE (12:00)
[2017-12-21] MEDS ORDERED: GLYCOPYRROLATE 1 MG/5 ML SYRINGE IV PUSH ONE (12:00)
[2017-12-21] MEDS ORDERED: PROPOFOL 200 MG/20 ML AMP IV ONE (12:00)
[2017-12-21] MEDS ORDERED: ROCURONIUM INJ 50 MG/5 ML SYRINGE IV PUSH ONE (12:00)
[2017-12-21] MEDS ORDERED: ePHEDrine/NS 25 MG/5 ML SYRINGE IV ONE (12:00)
[2017-12-21] MEDS ORDERED: LIDOCAINE HCL 1% PF 5 ML SYRINGE OTHER ONE (12:00)
[2017-12-21] MEDS ORDERED: ONDANSETRON HCL 4 MG/2 ML VIAL IV PUSH PRN (13:30)
[2017-12-21] MEDS ORDERED: MAGNESIUM HYDROXIDE SUSP 30 ML CUP PO PRN (13:30)
[2017-12-21] MEDS ORDERED: Post-op Orders (for Pharmacy) OTHER ONE (13:30)
[2017-12-21] MEDS ORDERED: SUGAMMADEX SODIUM 200 MG/2 ML VIAL IV PUSH ONE (13:30)
[2017-12-21] MEDS ORDERED: RESP: ALBUTEROL 2.5 MG/3 ML NEB (PRN) NEB (13:30)
[2017-12-21] MEDS ORDERED: SODIUM CHLORIDE 0.9% FLUSH 10 ML FLUSH IV FLUSH PRN (13:30)
[2017-12-21] MEDS ORDERED: ONDANSETRON ODT 4 MG TAB PO PRN (13:30)
[2017-12-21] MEDS ORDERED: ACETAMINOPHEN 325 MG TAB PO PRN (13:30)
[2017-12-21] MEDS ORDERED: ALPRAZolam 0.5 MG TAB PO PRN (13:30)
[2017-12-21] MEDS ORDERED: oxyCODONE/ACETAMINOPHEN 5 MG/325 MG TAB PO PRN (13:30)
[2017-12-21] MEDS ORDERED: ceFAZolin 2 GM PREMIX 50 ML ONE (13:31)
--- NOTE | 2017-12-21 13:34 | PD.OP ---
cc: Leigh Hennessy MD; Joseph Gore MD Operative Report Date of Surgery: Dec 21, 2017 Preoperative Diagnosis: (1) Malignant pleural effusion Postoperative Diagnosis: same Procedure: Left VATS exploration, drainage of pleural effusion, pleurodesis Anesthesia: Dr. Goddard Surgeon: Leigh Hennessy Hourly Associate(s): Marie Hercules, PAC Operation and Findings: Drains: 24F Adrian Procedure Details After adequate general anesthesia the patient was placed in the right lateral decubitus position and the left chest was prepped and draped in usual manner. A small anterior port incision was performed and electrocautery was used to obtain hemostasis and carry the dissection down through the fascia. A port was placed anteriorly followed by the camera. Approximately 2200ml serous effusion was drained. Exploration of the left hemithorax was significant for tumor studding on the parietal pleura . A pleurodesis was performed using povidone iodine. A 24F Adrian drain was positioned through the anterior port, and secured with a 0-silk suture. The lung was ventilated and no significant air leaks were found. All sponge and history counts were correct at the close the procedure and the patient was transferred to the PACU for recovery purposes. Leigh Hennessy MD Dec 21, 2017 13:34
[2017-12-21] MEDS ORDERED: DO NOT ADM ANY ANTICOAGULANT DRUGS PRN (13:44)
[2017-12-21] MEDS ORDERED: *morphine SULFATE 10 MG/ML PERIprocedure ONLY ONE (14:03)
--- NOTE | 2017-12-21 14:49 | PD.CAR.PN ---
CVT Progress Note Subjective/Hospital Course: 72/ F h/o breast cancer presented to Dr Gore having developed bilateral pleural effusions which were malignant , she was considered for ROSI=TS pleurodesis PMH: Breast cancetr, HTN, thyroid disease / hx mastectomy surgery: 12/21 Left VATS exploration, drainage of pleural effusion, pleurodesis Benita Mera Dec 21, 2017 14:49
--- NOTE | 2017-12-21 15:18 | RADRPT ---
EXAM DATE/TIME: 12/21/2017 14:12 [facility] COMPARISON: CHEST PA & LAT, December 17, 2017, 11:17. CHEST SINGLE AP, October 25, 2017, 10:56. INDICATIONS : S/p thoracotomy MEDICAL HISTORY : Carcinoma, breast. SURGICAL HISTORY : Mastectomy, right. ENCOUNTER: Initial ACUITY: 1 day PAIN SCORE: Non-responsive. LOCATION: Bilateral chest FINDINGS: Left-sided probable mediastinal drain. Improved aeration in the left lower lung zone with residual ai rspace disease and resolution of previously noted pleural effusion. Multiple prominent small to moder ate-sized right-sided pleural effusion with associated right lower lobe airspace disease. No signific ant pneumothorax. Cardiomediastinal contours are stable. Remainder of the exam is unchanged. CONCLUSION: 1. Postsurgical features with mediastinal drain in place. 2. Improved aeration in the left lower lobe with minimal residual airspace disease. 3. Progression of right lower lung zone pleural-parenchymal disease. Yousif Westbrook MD on December 21, 2017 at 14:48 Board Certified Radiologist. This report was verified electronically.
[2017-12-21] MEDS: ONDANSETRON HCL 4 MG/2 ML VIAL IV PUSH PRN (18:07)
[2017-12-21] MEDS: DOCUSATE CALCIUM 240 MG CAP PO SCH (21:00)
[2017-12-21] MEDS ORDERED: NON-FORMULARY DRUG (Biotin 5 MG) PO SCH (21:00)
[2017-12-21] MEDS: SODIUM CHLORIDE 0.9% FLUSH 10 ML FLUSH IV FLUSH SCH (21:26)
[2017-12-21] MEDS: PANTOPRAZOLE SOD 40 MG DELAYED RELEASE TAB PO SCH (21:27)
[2017-12-21] MEDS: CALCIUM CARBONATE 1.25 GM (CA 500 MG) TAB PO SCH (21:27)
[2017-12-22] VITALS (29 sets, daily range): BP systolic 113–154; BP diastolic 57–81; PULSE 83–128; RESP 17–19; TEMP 97.4–98.4; O2SAT 92–96
[2017-12-22] MEDS: ONDANSETRON HCL 4 MG/2 ML VIAL IV PUSH PRN ×2 (04:20→10:11)
[2017-12-22 05:08] LABS: AUTOMATED NEUTROPHIL # 3.8 TH/MM3 (1.8-7.7); BASOPHIL % 0.7 % (0.0-2.0); EOSINOPHIL % 0.1 % (0.0-4.0); HEMATOCRIT 42.3 % (35.0-46.0); HEMOGLOBIN 14.4 GM/DL (11.6-15.3); LYMPH % 13.4 % (9.0-44.0); LYMPHOCYTE # 0.7 TH/MM3 (1.0-4.8); MEAN CELL VOLUME 92.8 FL (80.0-100.0); MEAN CORPUSCULAR HEMOGLOBIN 31.6 PG (27.0-34.0); MEAN CORPUSCULAR HGB CONC 34.1 % (32.0-36.0); MEAN PLATELET VOLUME 8.4 FL (7.0-11.0); MONO % 10.4 % (0.0-8.0); MONOCYTE # 0.5 TH/MM3 (0-0.9); NEUT % 75.4 % (16.0-70.0); PLATELET COUNT 200 TH/MM3 (150-450); RED BLOOD COUNT 4.56 MIL/MM3 (4.00-5.30); RED CELL DISTRIBUTION WIDTH 13.9 % (11.6-17.2); WHITE BLOOD COUNT 5.1 TH/MM3 (4.0-11.0)
--- NOTE | 2017-12-22 05:13 | RADRPT ---
EXAM DATE/TIME: 12/22/2017 03:18 [facility] COMPARISON: CHEST SINGLE AP, December 21, 2017, 14:12. INDICATIONS : S/p thoracotomy. MEDICAL HISTORY : Carcinoma, breast SURGICAL HISTORY : Mastectomy, right. ENCOUNTER: Subsequent ACUITY: 2 days PAIN SCORE: 4/10 LOCATION: Bilateral chest FINDINGS: A single portable frontal view the chest shows reduction in size of the right pleural effusion. A sma ll effusion remains. Bilateral pulmonary consolidations are again noted within the bases. These are u nchanged. Heart is normal in size. No pneumothorax observed. Bony structures are unremarkable. CONCLUSION: Reduction in size of the right effusion. Bibasilar infiltrates are stable. Rudi Boyd Jr., MD on December 22, 2017 at 5:10 Board Certified Radiologist. This report was verified electronically.
[2017-12-22 05:16] LABS: BICARBONATE 28.3 MEQ/L (21.0-32.0); CALCIUM 8.4 MG/DL (8.5-10.1); CREATININE 0.88 MG/DL (0.50-1.00)
[2017-12-22] MEDS: LEVOTHYROXINE SODIUM 112 MCG TAB PO SCH (06:13)
[2017-12-22] MEDS: ALPRAZolam 0.25 MG TAB PO PRN ×2 (06:13→22:54)
[2017-12-22] MEDS: MULTIVITAMIN TAB PO SCH (08:21)
[2017-12-22] MEDS: SODIUM CHLORIDE 0.9% FLUSH 10 ML FLUSH IV FLUSH SCH ×2 (08:21→21:10)
[2017-12-22] MEDS: ASPIRIN EC 81 MG TABEC PO SCH (08:21)
[2017-12-22] MEDS: CHOLECALCIFEROL (VIT D3) 1000 UNIT TAB PO SCH (08:21)
[2017-12-22] MEDS: CALCIUM CARBONATE 1.25 GM (CA 500 MG) TAB PO SCH ×3 (08:21→21:11)
[2017-12-22] MEDS ORDERED: [UNRECOGNIZED DRUG - OTHER] PO SCH (09:00)
[2017-12-22] MEDS ORDERED: PILL SPLITTER OTHER PRN (09:15)
[2017-12-22] MEDS: METOPROLOL TARTRATE 25 MG TAB PO SCH ×2 (10:12→21:11)
--- NOTE | 2017-12-22 14:33 | PD.CAR.PN ---
CVT Progress Note Subjective/Hospital Course: 72/ F h/o breast cancer presented to Dr Gore having developed bilateral pleural effusions which were malignant , she was considered for ROSI=TS pleurodesis PMH: Breast cancetr, HTN, thyroid disease / hx mastectomy surgery: 12/21 Left VATS exploration, drainage of pleural effusion, pleurodesis 12/22 had some nausea last pm, slight improvement , however has hx of nausea after anesthesia will change pain meds add reglan OOB, ambulate chest tube drained 280cc/ 12hrs , no air leak Objective: GENERAL: A&O x 3 SKIN: Warm and dry. dressing over chest tube site lead: Normocephalic. EYES: No scleral icterus. No injection or drainage. NECK: Supple, trachea midline. No JVD or lymphadenopathy. CARDIOVASCULAR: Regular rate and rhythm without murmurs, gallops, or rubs. RESPIRATORY: Breath sounds equal bilaterally. No accessory muscle use. chest tube no drainage , no air leak GASTROINTESTINAL: Abdomen soft, non-tender, nondistended. MUSCULOSKELETAL: No cyanosis, or edema. BACK: Nontender without obvious deformity. No CVA tenderness. Vital Signs Date Time Temp Pulse Resp B/P (MAP) Pulse Ox O2 Delivery O2 Flow Rate FiO2 12/22/17 12:22 93 Room Air 12/22/17 12:00 108 12/22/17 11:16 97.8 95 113/60 (77) 92 12/22/17 11:00 95 12/22/17 10:00 100 12/22/17 09:00 102 12/22/17 08:14 93 21 12/22/17 08:00 120 12/22/17 07:46 98.2 128 17 125/81 (96) 92 12/22/17 07:41 92 Room Air 12/22/17 07:00 107 12/22/17 06:00 105 12/22/17 05:00 109 12/22/17 04:07 16 12/22/17 04:00 108 12/22/17 03:00 98.1 99 18 120/59 (79) 94 12/22/17 03:00 94 Room Air 12/22/17 03:00 100 12/22/17 02:00 110 12/22/17 01:00 106 12/22/17 00:00 97.4 100 18 124/57 (79) 93 3/14/18 00:00 100 12/22/17 00:00 93 Room Air 12/21/17 23:00 106 12/21/17 22:00 100 12/21/17 21:16 98 Nasal Cannula 3.00 12/21/17 21:00 94 12/21/17 20:00 96 12/21/17 19:00 97.3 98 18 121/76 (91) 98 12/21/17 19:00 98 Nasal Cannula 2.00 12/21/17 19:00 93 12/21/17 18:00 92 12/21/17 17:00 86 12/21/17 16:00 77 12/21/17 15:35 97.0 82 19 101/65 (77) 92 12/21/17 15:00 98.1 79 12 111/53 (72) 98 Nasal Cannula 2 12/21/17 14:45 80 12 112/52 (72) 100 Nasal Cannula 2 12/21/17 14:30 80 12 114/56 (75) 100 Nasal Cannula 4 Labs: Laboratory Tests Test 12/22/17 04:01 White Blood Count 5.1 TH/MM3 (4.0-11.0) Red Blood Count 4.56 MIL/MM3 (4.00-5.30) Hemoglobin 14.4 GM/DL (11.6-15.3) Hematocrit 42.3 % (35.0-46.0) Mean Corpuscular Volume 92.8 FL (80.0-100.0) Mean Corpuscular Hemoglobin 31.6 PG (27.0-34.0) Mean Corpuscular Hemoglobin Concent 34.1 % (32.0-36.0) Red Cell Distribution Width 13.9 % (11.6-17.2) Platelet Count 200 TH/MM3 (150-450) Mean Platelet Volume 8.4 FL (7.0-11.0) Neutrophils (%) (Auto) 75.4 % (16.0-70.0) Lymphocytes (%) (Auto) 13.4 % (9.0-44.0) Monocytes (%) (Auto) 10.4 % (0.0-8.0) Eosinophils (%) (Auto) 0.1 % (0.0-4.0) Basophils (%) (Auto) 0.7 % (0.0-2.0) Neutrophils # (Auto) 3.8 TH/MM3 (1.8-7.7) Lymphocytes # (Auto) 0.7 TH/MM3 (1.0-4.8) Monocytes # (Auto) 0.5 TH/MM3 (0-0.9) Eosinophils # (Auto) 0.0 TH/MM3 (0-0.4) Basophils # (Auto) 0.0 TH/MM3 (0-0.2) CBC Comment DIFF FINAL Differential Comment Blood Urea Nitrogen 14 MG/DL (7-18) Creatinine 0.88 MG/DL (0.50-1.00) Random Glucose 110 MG/DL (74-106) Calcium Level 8.4 MG/DL (8.5-10.1) Sodium Level 139 MEQ/L (136-145) Potassium Level 4.0 MEQ/L (3.5-5.1) Chloride Level 101 MEQ/L (98-107) Carbon Dioxide Level 28.3 MEQ/L (21.0-32.0) Anion Gap 10 MEQ/L (5-15) Estimat Glomerular Filtration Rate 63 ML/MIN (>89) Result Diagram: 12/22/1740012/22/17 040 (1) left VATS Plan: path pending pulm toileting antiemetics for nausea pain control tachycardic / low dose BB (2) Recurrent left pleural effusion (3) Malignant pleural effusion Benita Mera Dec 22, 2017 14:33
[2017-12-22] MEDS ORDERED: ACETAMINOPHEN/HYDROcodone 325 MG/5 MG TAB PO PRN (15:00)
[2017-12-22] MEDS ORDERED: KETOROLAC TROMETHAMINE 30 MG/ML (IVP) VIAL IV PUSH PRN (15:00)
[2017-12-22] MEDS ORDERED: ACETAMINOPHEN 1000 MG/100 ML 100 ML IV PRN (15:00)
[2017-12-22] MEDS: DOCUSATE CALCIUM 240 MG CAP PO SCH (21:00)
[2017-12-22] MEDS: EXEMESTANE PO SCH (21:09)
[2017-12-22] MEDS: PANTOPRAZOLE SOD 40 MG DELAYED RELEASE TAB PO SCH (21:11)
[2017-12-23] VITALS (24 sets, daily range): BP systolic 116–137; BP diastolic 57–74; PULSE 78–106; RESP 14–16; TEMP 97.8–98.8; O2SAT 93–96
[2017-12-23] MEDS: ALPRAZolam 0.25 MG TAB PO PRN ×4 (04:27→22:48)
[2017-12-23 04:58] LABS: CALCIUM 8.2 MG/DL (8.5-10.1); CREATININE 0.78 MG/DL (0.50-1.00)
[2017-12-23] MEDS: LEVOTHYROXINE SODIUM 112 MCG TAB PO SCH (06:36)
[2017-12-23] MEDS: METOPROLOL TARTRATE 25 MG TAB PO SCH ×2 (09:42→20:59)
[2017-12-23] MEDS: ASPIRIN EC 81 MG TABEC PO SCH (09:43)
[2017-12-23] MEDS: CALCIUM CARBONATE 1.25 GM (CA 500 MG) TAB PO SCH ×2 (09:43→20:59)
[2017-12-23] MEDS: MULTIVITAMIN TAB PO SCH (09:43)
[2017-12-23] MEDS: CHOLECALCIFEROL (VIT D3) 1000 UNIT TAB PO SCH (09:44)
[2017-12-23] MEDS: SODIUM CHLORIDE 0.9% FLUSH 10 ML FLUSH IV FLUSH SCH ×2 (09:44→21:00)
--- NOTE | 2017-12-23 10:38 | PD.CAR.PN ---
CVT Progress Note Subjective/Hospital Course: 72/ F h/o breast cancer presented to Dr Gore having developed bilateral pleural effusions which were malignant , she was considered for ROSI=TS pleurodesis PMH: Breast cancer, HTN, thyroid disease / hx mastectomy surgery: 12/21 Left VATS exploration, drainage of pleural effusion, pleurodesis 12/22 had some nausea last pm, slight improvement , however has hx of nausea after anesthesia will change pain meds add reglan OOB, ambulate chest tube drained 280cc/ 12hrs , no air leak 12/23 no further nausea chest tube drained 150cc/ 12 hrs will re-eval later today OOB ambulate Objective: GENERAL: A&) x 3 SKIN: Warm and dry. HEAD: Normocephalic. EYES: No scleral icterus. No injection or drainage. NECK: Supple, trachea midline. No JVD or lymphadenopathy. CARDIOVASCULAR: Regular rate and rhythm without murmurs, gallops, or rubs. RESPIRATORY: Breath sounds equal bilaterally. No accessory muscle use. left lateral chest tube in place, no air leak / to water seal / drained 150cc/ 12 hrs GASTROINTESTINAL: Abdomen soft, non-tender, nondistended. MUSCULOSKELETAL: No cyanosis, or edema. BACK: Nontender without obvious deformity. No CVA tenderness. Vital Signs Date Time Temp Pulse Resp B/P (MAP) Pulse Ox O2 Delivery O2 Flow Rate FiO2 12/23/17 06:00 102 12/23/17 05:00 84 12/23/17 04:00 85 12/23/17 03:00 98.0 94 116/66 (83) 94 12/23/17 03:00 82 12/23/17 02:00 86 12/23/17 01:00 80 12/23/17 00:00 78 12/22/17 23:00 84 12/22/17 23:00 98.0 83 121/58 (79) 92 12/22/17 22:00 96 12/22/17 21:00 88 12/22/17 20:42 93 21 12/22/17 20:00 96 12/22/17 19:00 98.0 90 154/75 (101) 96 12/22/17 19:00 96 12/22/17 18:00 88 12/22/17 17:00 100 3/14/18 16:00 92 12/22/17 15:17 98.4 92 19 116/67 (83) 95 12/22/17 15:15 94 Room Air 12/22/17 15:00 90 12/22/17 14:00 88 12/22/17 13:00 90 12/22/17 12:22 93 Room Air 12/22/17 12:00 108 12/22/17 11:16 97.8 95 113/60 (77) 92 12/22/17 11:00 95 Labs: Laboratory Tests Test 12/23/17 03:55 Blood Urea Nitrogen 16 MG/DL (7-18) Creatinine 0.78 MG/DL (0.50-1.00) Random Glucose 86 MG/DL (74-106) Calcium Level 8.2 MG/DL (8.5-10.1) Sodium Level 137 MEQ/L (136-145) Potassium Level 4.0 MEQ/L (3.5-5.1) Chloride Level 100 MEQ/L (98-107) Carbon Dioxide Level 29.0 MEQ/L (21.0-32.0) Anion Gap 8 MEQ/L (5-15) Estimat Glomerular Filtration Rate 72 ML/MIN (>89) Result Diagram: 12/22/17 0401 12/23/17 0355 (1) left VATS Plan: path pending pulm toileting nausea resolved pain control chest tube to water seal (2) Recurrent left pleural effusion (3) Malignant pleural effusion Benita Mera Dec 23, 2017 10:38
[2017-12-23] MEDS: PANTOPRAZOLE SOD 40 MG DELAYED RELEASE TAB PO SCH (20:59)
[2017-12-23] MEDS: DOCUSATE CALCIUM 240 MG CAP PO SCH (21:00)
[2017-12-23] MEDS: EXEMESTANE PO SCH (21:00)
[2017-12-24] VITALS (16 sets, daily range): BP systolic 105–139; BP diastolic 55–69; PULSE 81–104; RESP 14; TEMP 98–98.3; O2SAT 92–95
[2017-12-24] MEDS: ALPRAZolam 0.25 MG TAB PO PRN ×2 (02:53→08:17)
[2017-12-24] MEDS: LEVOTHYROXINE SODIUM 112 MCG TAB PO SCH (06:37)
[2017-12-24] MEDS: CALCIUM CARBONATE 1.25 GM (CA 500 MG) TAB PO SCH (08:16)
[2017-12-24] MEDS: MULTIVITAMIN TAB PO SCH (08:16)
[2017-12-24] MEDS: METOPROLOL TARTRATE 25 MG TAB PO SCH (08:17)
[2017-12-24] MEDS: CHOLECALCIFEROL (VIT D3) 1000 UNIT TAB PO SCH (08:17)
[2017-12-24] MEDS: ASPIRIN EC 81 MG TABEC PO SCH (08:17)
[2017-12-24] MEDS: SODIUM CHLORIDE 0.9% FLUSH 10 ML FLUSH IV FLUSH SCH (08:23)
--- NOTE | 2017-12-24 12:57 | RADRPT ---
EXAM DATE/TIME: 12/24/2017 11:59 [facility] COMPARISON: CHEST SINGLE AP, December 22, 2017, 3:18. INDICATIONS : Evaluate for pneumothorax post chest tube removal MEDICAL HISTORY : Carcinoma, breast. SURGICAL HISTORY : Mastectomy, right. ENCOUNTER: Subsequent ACUITY: 3 days PAIN SCORE: 4/10 LOCATION: Bilateral chest FINDINGS: Portable AP view of the chest demonstrates a normal-sized cardiac silhouette. The left chest tube has been removed. No pneumothorax is visualized. There is persistent severe left lower lung zone airspac e consolidation and mild consolidation at the right lung base. Small bilateral pleural based opacitie s remain present. CONCLUSION: 1. No pneumothorax is visualized following left chest tube removal. 2. Stable bibasilar airspace consolidation, left greater than right, and stable small bilateral pleur al effusions. Niraj Barragan MD on December 24, 2017 at 12:55 Board Certified Radiologist. This report was verified electronically.
[2017-12-24] MEDS ORDERED: HYDR-3516 PO (14:53)
--- NOTE | 2017-12-24 15:12 | HHI.DS ---
Discharge Summary Admission Date Dec 21, 2017 at 10:01 Discharge Date: Dec 24, 2017 Admitting Diagnosis malignant pleural effusion (1) left VATS Diagnosis: Secondary (2) Recurrent left pleural effusion Diagnosis: Principal ICD Codes: J90 - Pleural effusion, not elsewhere classified (3) Malignant pleural effusion Diagnosis: Principal ICD Codes: J91.0 - Malignant pleural effusion Procedures Left VATS exploration, drainage of pleural effusion, pleurodesis Brief History 72/ F h/o breast cancer presented to Dr Gore having developed bilateral pleural effusions which were malignant , she was considered for ROSI=TS pleurodesis PMH: Breast cancer, HTN, thyroid disease / hx mastectomy CBC/BMP: 12/22/17 0401 12/23/17 0355 Significant Findings Laboratory Tests Test 12/22/17 04:01 12/23/17 03:55 Neutrophils (%) (Auto) 75.4 % (16.0-70.0) Monocytes (%) (Auto) 10.4 % (0.0-8.0) Lymphocytes # (Auto) 0.7 TH/MM3 (1.0-4.8) Random Glucose 110 MG/DL (74-106) Calcium Level 8.4 MG/DL (8.5-10.1) 8.2 MG/DL (8.5-10.1) Estimat Glomerular Filtration Rate 63 ML/MIN (>89) 72 ML/MIN (>89) Imaging Last Impressions Chest X-Ray 12/24/17 1200 Signed Impressions: Service Date/Time: Sunday, December 24, 2017 11:59 - CONCLUSION: 1. No pneumothorax is visualized following left chest tube removal. 2. Stable bibasilar airspace consolidation, left greater than right, and stable small bilateral pleural effusions. Niraj Barragan MD PE at Discharge GENERAL: A&O x 3 SKIN: Warm and dry. dressing in place to left lateral chest wall HEAD: Normocephalic. EYES: No scleral icterus. No injection or drainage. NECK: Supple, trachea midline. No JVD or lymphadenopathy. CARDIOVASCULAR: Regular rate and rhythm without murmurs, gallops, or rubs. RESPIRATORY: diminished in bases L>R Breath sounds equal bilaterally. No accessory muscle use. GASTROINTESTINAL: Abdomen soft, non-tender, nondistended. MUSCULOSKELETAL: No cyanosis, or edema. BACK: Nontender without obvious deformity. No CVA tenderness. Hospital Course surgery: 12/21 Left VATS exploration, drainage of pleural effusion, pleurodesis 12/22 had some nausea last pm, slight improvement , however has hx of nausea after anesthesia will change pain meds add reglan OOB, ambulate chest tube drained 280cc/ 12hrs , no air leak 12/23 no further nausea chest tube drained 150cc/ 12 hrs will re-eval later today OOB ambulate 12/24 chest tube removed without difficulty post CXR stable no PTX will dc home f/u CXR in 2 weeks with office visit Pt Condition on Discharge: Good Discharge Disposition: Discharge Home Discharge Instructions DIET: Follow Instructions for: As Tolerated, No Restrictions Activities you can perform: Full Weight Bearing, Shower Only-No Bath Activities to avoid: Strenuous Activity, Driving Additional Activity Instructio: no lifting >8 lbs Follow up Referrals: Oncology - 4 Weeks with Joseph Gore MD PCP Follow-up - [address] Syd Cuellar [address] [facility] [address] [facility] [address] Surgical - 2 Weeks with Benita Mera New Orders: X-RAY CHEST PA & LAT - 2 Weeks New Medications: Hydrocodone/Acetaminophen (Hydrocodone-Acetamin 5-325 mg) 5 Mg-325 Mg Tablet 1 TAB PO Q4HR PRN for PAIN SCALE 3 TO 5, #40 TAB 0 Refills Continued Medications: Alprazolam (Alprazolam) 0.5 Mg Tab 0.5 MG PO HS PRN for ANXIETY, TAB 0 Refills Alprazolam (Alprazolam) 0.25 Mg Tab 0.25 MG PO Q4H PRN for ANXIETY, TAB [address] (Aspirin DR) 81 Mg Tabdr 81 MG PO DAILY, TAB 0 Refills Biotin (Biotin) 5 Mg Cap 5 MG PO BID for Nutritional Supplement, #1 BOTTLE 0 Refills Calcium Carbonate (Calcium Carbonate) 500 Mg Calcium (1250 Mg) Tab 1250 MG PO BID for Calcium Supplement, TAB 0 Refills 1,250 mg calcium carbonate (500 mg elemental calcium) Cholecalciferol (Vitamin D3) 2,000 Unit Cap 2000 UNITS PO DAILY for Nutritional Supplement, #1 BOTTLE 0 Refills Everolimus (Afinitor) 5 Mg Tab 5 MG PO HS Exemestane (Exemestane) 25 Mg Tab 25 TAB PO HS for Chemotherapy Management Ginseng Energy Booster (Ginseng Energy Booster) 100 Mg Cap 480 CAP PO DAILY Levothyroxine (Levothyroxine) 112 Mcg Tab 112 MCG PO DAILY, #30 TAB 0 Refills Multiple Vitamin (Multiple Vitamin) 1 Tab 1 TAB PO DAILY for Nutritional Supplement, TAB 0 Refills Ondansetron (Zofran) 4 Mg Tab 4 MG PO Q6HR PRN for NAUSEA OR VOMITING, TAB 0 Refills Benita Mera Dec 24, 2017 15:12
== END 2017-12-24 16:00 | disposition home or self-care (01) | DRG 982 ==
LOC: HSDI 10:01 → HCPC 15:15
PROVIDERS: ADMIT Thoracic Surgery (Cardiothoracic Vascular Surgery); ATTEND Thoracic Surgery (Cardiothoracic Vascular Surgery)
PROC: 3E0L4GC Introduction of Other Therapeutic Substance into Pleural Cavity, Percutaneous Endoscopic Approach (ICD-10-PCS; 2017-12-21)
PROC: 0W9B40Z Drainage of Left Pleural Cavity with Drainage Device, Percutaneous Endoscopic Approach (ICD-10-PCS; principal; 2017-12-21 11:54)
DX: C50.919 Malignant neoplasm of unspecified site of unspecified female breast (principal); J91.0 Malignant pleural effusion; I10 Essential (primary) hypertension; E07.9 Disorder of thyroid, unspecified; R11.0 Nausea; R00.0 Tachycardia, unspecified; Z87.891 Personal history of nicotine dependence
CPT/HCPCS: 71045; 80048; 82948; 85025; 86850; 86900; 86901; 94150; J0131; J0690; J1885; J2270; J2370; J2405; J2710; J3010; J7120

== ENCOUNTER 2018-01-14 07:19 | Day surgery (SDC) | payer MEDICARE ==
[~2018-01-14] VITALS: Ht 157.5 cm; Wt 54.5 kg
[~2018-01-14 07:19] MED LIST changes: -AFIN5TAB PO; -EXEM25TA PO
[2018-01-14 07:45] VITALS: BP 134/84; PULSE 94; RESP 18; TEMP 97.6; O2SAT 93
[2018-01-14] MEDS ORDERED: CHLORHEXIDINE GLUCONATE 2 % 1 PACK (2 CLOTHS) TOPICAL SCH (07:45)
[2018-01-14] MEDS ORDERED: POVIDONE IODINE 5% (ANTISEPSIS KIT) 4 APPLICATIONS EACH NARE SCH (07:45)
[2018-01-14] MEDS ORDERED: VANCOMYCIN 1000 MG/NS 250 ML - implanted port/tunneled catheter IV SCH ×2 (07:45)
[2018-01-14] MEDS ORDERED: CEFAZOLIN INJ 2,000 MG in SODIUM CHLORIDE 0.9% INJ 100 ML IV SCH (08:00)
[2018-01-14] MEDS ORDERED: SODIUM CHLORIDE 0.9% 1000 ML IV SCH (08:00)
[2018-01-14] MEDS ORDERED: LIDOCAINE 1%/EPINEPHrine 1:100,000 SOLN 30 ML VIAL ONE (09:23)
[2018-01-14] MEDS ORDERED: MIDAZOLAM HCL 2 MG/2 ML VIAL ONE (09:28)
[2018-01-14] MEDS ORDERED: ONDANSETRON HCL 4 MG/2 ML VIAL ONE (09:28)
[2018-01-14 11:19] VITALS: BP 135/82; PULSE 50; RESP 18; TEMP 97.6; O2SAT 94
--- NOTE | 2018-01-14 11:23 | PD.RAD ---
Post Procedure Progress Note Pre Procedure Diagnosis: (1) Malignant pleural effusion Post Procedure Diagnosis: (1) Malignant pleural effusion Procedure Date: Jan 14, 2018 Supervising Radiologist: Rudi Boyd JR Proceduralist/Assist: RT Nicolasa(R), RT Mercedes(R) Anesthesia: Conscious Sedation Plan of Activity Patient to Unit: ROPU Patient Condition: Good See PACS Report for procedural detail/treatment Central Venous Access Device Procedure 1 Right Internal Jugular Infusaport Placement single lumen Czech: 8 Procedure 2 Right Findings: Right thoracentesis performed. Clear pleural fluid. Samples not requested. 1550 mL removed. Plan CXR pending. Jr. Oliver,Rudi Gill MD Jan 14, 2018 11:23
[2018-01-14] MEDS ORDERED: SODIUM CHLORIDE 0.9% FLUSH 10 ML FLUSH IVF PRN (11:30)
[2018-01-14 11:34] VITALS: BP 113/75; PULSE 89; RESP 18; O2SAT 98
[2018-01-14 12:04] VITALS: BP 126/74; PULSE 88; RESP 17; O2SAT 98
--- NOTE | 2018-01-14 12:20 | RADRPT ---
EXAM DATE/TIME: 01/14/2018 09:53 [facility] COMPARISON: No previous studies available for comparison. INDICATIONS : Patient presents with breast cancer in need of port placement. MEDICAL HISTORY : Eye Cancer Breast Cancer mets to liver and bone Depression and anxiety Osteoporsis SURGICAL HISTORY : Right Lumpectomy Mastectomy Right Kidney stent Right femur vicki D&C ENCOUNTER: Initial ACUITY: 4-6 days PAIN SCORE: 0/10 FLUORO TIME: 0.4 minutes IMAGE SERIES: 1 SEDATION TIME: 30 minutes ACCESS: Right internal jugular vein SEDATION: 1.) 4 mg midazolam (Versed) IV 2.) 200 mcg fentanyl (Sublimaze) IV Prophylactic antibiotics were administered with appropriate pre-procedure timing. Vancomycin within 2 hours of procedure, Ancef (or alternative) within 1 hour of procedure. DEVICE: 1. 8 Emirati single lumen [id number] PROCEDURE : 1. Continuous pulse oximetry and EKG monitoring. 2. Intravenous conscious sedation. 3. Ultrasound guidance for venous access. 4. Fluoroscopic guided implantable central venous port placement. The patient was placed supine. The neck was prepped in sterile fashion. Full sterile technique was u sed, including cap, mask, sterile gloves and gown, and a large sterile sheet. Hand hygiene and 2% ch lorhexidine Betadine was utilized per protocol for cutaneous antisepsis with appropriate dry time for site. Sterile gel and sterile probe cover were utilized for ultrasound guidance. The skin and sub cutaneous tissues were infiltrated with local anesthetic solution. Under direct ultrasound guidance, central venous access was accomplished in the targeted vessel. The ultrasound images depicting access guidance were stored and saved to PACS for permanent record. A s ubcutaneous pocket was created using blunt dissection. The port was introduced to the pocket. The c atheter tubing was fed through a subcutaneous tunnel to the venotomy site. The catheter tubing was c ut to a suitable length and then was introduced through a valved Peel-Away sheath and positioned with catheter tubing tip at the cavo-atrial junction level. The pocket incision was closed with subcutic ular Vicryl suture. Steri-Strips were applied. The port was flushed and locked with heparin solutio n per protocol. Sterile dressing was applied to the site. The patient tolerated the procedure well. Conscious sedation was performed with the prescribed dosages and duration as above in the presence of an independent trained radiology nurse to assist in the monitoring of the patient. EKG and oximetry remained stable throughout the procedure. The patient tolerated the procedure well and there were no complications. The patient was sent to post anesthesia recovery in stable condition. CONCLUSION: Uncomplicated ultrasound and fluoroscopic guided implanted central venous port catheter placement as described in detail above. An 8 Emirati Power port was placed. Rudi Boyd Jr., MD on January 14, 2018 at 12:17 Board Certified Radiologist. This report was verified electronically.
--- NOTE | 2018-01-14 12:20 | RADRPT ---
EXAM DATE/TIME: 01/14/2018 09:22 [facility] COMPARISON: No previous studies available for comparison. INDICATIONS : Recurrent malignant pleural effusion with shortness of breath. MEDICAL HISTORY : Eye Cancer Breast Cancer mets to liver and bone Depression and anxiety Osteoporsis SURGICAL HISTORY : Right Lumpectomy Mastectomy Right Kidney stent Right femur vicki D&C ENCOUNTER: Initial ACUITY: 4 - 6 days PAIN SCORE: 0/10 FLUORO TIME: IMAGE SERIES: 1 FLUID: Total volume of 1500 cc of cloudy, yellow fluid was removed. Fluid was discarded. PROCEDURE : 1. Fluoroscopically guided thoracentesis. The risks, benefits and alternatives to the procedure were explained and verbal and written consent w as obtained. The site was prepped in sterile fashion. Full sterile technique was used, including ca p, mask, sterile gloves and gown and a large sterile sheet. Hand hygiene and 2% chlorhexidine and/or betadine/alcohol prep was utilized per protocol for cutaneous antisepsis. The skin and subcutaneous tissues were infiltrated with local anesthetic solution. With ultrasound guidance the largest pocket of fluid was identified and accessed. Under direct sonog raphic guidance a 7 Maltese SafeT needle was passed in the right pleural effusion. Clear straw-colored ascitic fluid was obtained. Sampling was not requested. The above described fluid was removed without difficulty. The patient tolerated the procedure well a nd there were no complications. A chest radiograph is to be obtained. CONCLUSION: Uncomplicated ultrasound-guided right thoracentesis. Rudi Boyd Jr., MD on January 14, 2018 at 12:15 Board Certified Radiologist. This report was verified electronically.
--- NOTE | 2018-01-14 12:21 | RADRPT ---
EXAM DATE/TIME: 01/14/2018 11:44 [facility] COMPARISON: CHEST EXPIRATION ONLY, November 26, 2017, 10:50. INDICATIONS : Post thoracentesis right side MEDICAL HISTORY : None. SURGICAL HISTORY : right thoracentesis ENCOUNTER: Subsequent ACUITY: 1 day PAIN SCORE: 0/10 LOCATION: Right chest FINDINGS: A single frontal expiratory view of the chest was performed. Left-sided airspace disease/effusion, im proved from prior. Right lung is grossly clear except for possible small pleural effusion some blunti ng of the costophrenic angle. No pneumothorax post right-sided thoracentesis. Right IJ Salgaq-r-Plec catheter with the tip projecting over the central venous system. Both shoulders are "high riding" characteristic of chronic rotator cuff injuries. Osseous structures are otherwise intact. CONCLUSION: 1. Left basilar and left perihilar consolidation/effusion characteristic of atelectasis with possible associated effusion. This does show interval improvement, however. 2. Possible small effusion on the right with some blunting of costophrenic angle. Right lung is other baez clear. No pneumothorax. 3. Interval placement of a right IJ Hvuomu-y-Sdas catheter with the tip projecting over the central v enous system. Surya Correa MD on January 14, 2018 at 12:16 Board Certified Radiologist. This report was verified electronically.
[2018-01-14 12:34] VITALS: BP 140/70; PULSE 78; RESP 18; O2SAT 98
== END 2018-01-14 13:15 | disposition home or self-care (01) ==
LOC: HROP 07:19 → HRIP 07:23 → HROP 13:15
PROVIDERS: ATTEND Internal Medicine Hematology & Oncology
DX: C78.7 Secondary malignant neoplasm of liver and intrahepatic bile duct (principal); J91.0 Malignant pleural effusion; C79.51 Secondary malignant neoplasm of bone; C77.9 Secondary and unspecified malignant neoplasm of lymph node, unspecified; Z85.3 Personal history of malignant neoplasm of breast; Z85.840 Personal history of malignant neoplasm of eye; F32.9 Major depressive disorder, single episode, unspecified; F41.9 Anxiety disorder, unspecified; M81.0 Age-related osteoporosis without current pathological fracture
CPT/HCPCS: 32555; 36561; 71045; 76942; 77001; 99152; 99153; C1729; C1788; J0690; J1642; J2250; J2405; J3010; J3370; J7030; J7050

== ENCOUNTER 2018-01-24 09:18 | Observation (INO) | payer MEDICARE ==
[~2018-01-24] VITALS: Ht 157.5 cm; Wt 45.2 kg
[2018-01-24] VITALS (7 sets, daily range): BP systolic 119–139; BP diastolic 72–92; PULSE 86–109; RESP 16–32; TEMP 97.2–98.5; O2SAT 95–98
--- NOTE | 2018-01-24 10:22 | RADRPT ---
EXAM DATE/TIME: 01/24/2018 10:01 [facility] COMPARISON: CHEST SINGLE AP, December 24, 2017, 11:59. INDICATIONS : Shortness of breath. MEDICAL HISTORY : Carcinoma, breast. SURGICAL HISTORY : Mastectomy, right. Infusaport. ENCOUNTER: Initial ACUITY: 1 day PAIN SCORE: 0/10 LOCATION: Bilateral chest FINDINGS: Yvjzso-g-Fzah in good position. Mild interstitial edema with bibasilar parenchymal changes. Minimal fluid is seen left chest. The portion of the bony skeleton visualized is unremarkable. CONCLUSION: Mild congestive failure with increasing bibasilar parenchymal changes worse on the left. Jarrell Floyd MD FACR on January 24, 2018 at 10:17 Board Certified Radiologist. This report was verified electronically.
--- NOTE | 2018-01-24 10:27 | PD ---
HPI Chief Complaint: Respiratory Symptoms Time Seen by Provider: 09:38 Travel History International Travel<30 days: No Contact w/Intl Traveler<30days: No Traveled to known affect area: No History of Present Illness HPI 72-year-old female came to the emergency room with history of shortness of breath that started today. Patient says usually has some shortness of breath secondary to her malignancy and lung metastases. She has had quite a few recent pleuracentesis done and a pleurodesis by Dr. Yanez 2 weeks ago. Her last pleurocentesis was 1 week ago. This had made her shortness of breath better except for this morning when she started having shortness of breath again. She does not require oxygen at home. She was tachypneic in triage. No history of fever or chills. No history of chest pain. Patient oncologist is Dr. Gore. She is due for her next chemotherapy tomorrow. Her is here with her as well. PFSH Past Medical History Narrative Medical List of her past medical, surgical, social and family history is reviewed from the nursing note. Hx Anticoagulant Therapy: Yes (asa) Anxiety: Yes Depression: Yes Heart Rhythm Problems: No Cancer: Yes (R BREAST, METS TO LIVER AND BONE) Cardiovascular Problems: No High Cholesterol: No Chemotherapy: Yes Chest Pain: No Congestive Heart Failure: No Diabetes: No Endocrine: No Gastrointestinal Disorders: Yes (DIARRHEA from chemo meds) Genitourinary: Yes (intermittent incontinence) Hepatitis: No Immune Disorder: Yes (DUE TO CHEMO) Musculoskeletal: Yes Neurologic: No Psychiatric: Yes Reproductive: No Respiratory: Yes Radiation Therapy: Yes Thyroid Disease: Yes Influenza Vaccination: Yes Menopausal: Yes Dilation and Curettage (D&C): Yes (X3) Past Surgical History Abdominal Surgery: Yes (hernia) Body Medical Devices: CHARLENE IN RIGHT LEG Ear Surgery: No Endocrine Surgery: No Eye Surgery: No Genitourinary Surgery: Yes (R Kidney Stent) Gynecologic Surgery: No Joint Replacement: No Mastectomy: Yes Oral Surgery: No Tonsillectomy: Yes Family History Family Hypercholesterolemia: Yes Social History Alcohol Use: No Tobacco Use: No Substance Use: No Allergies-Medications (Allergen,Severity, Reaction): Coded Allergies: No Known Allergies (Unverified , 01/24/18) Comments No known allergy Reported Meds & Prescriptions Reported Meds & Active Scripts Active Reported Ginseng Energy Booster (Ginseng) 100 Mg Cap 480 Cap PO DAILY Zofran (Ondansetron HCl) 4 Mg Tab 4 Mg PO Q6HR PRN Levothyroxine (Levothyroxine Sodium) 112 Mcg Tab 112 Mcg PO DAILY Aspirin DR (Aspirin) 81 Mg Tabdr 81 Mg PO DAILY Alprazolam 0.25 Mg Tab 0.25 Mg PO Q4H PRN Alprazolam 0.5 Mg Tab 0.5 Mg PO HS PRN Biotin 5 Mg Cap 5 Mg PO BID Vitamin D3 (Cholecalciferol) 2,000 Unit Cap 2,000 Units PO DAILY Multiple Vitamin 1 Tab 1 Tab PO DAILY Calcium Carbonate 500 Mg Calcium (1250 Mg) Tab 1,250 Mg PO BID 1,250 mg calcium carbonate (500 mg elemental calcium) Narrative Medication List of her home medications reviewed from the nursing note. Review of Systems Except as stated in HPI: all other systems reviewed are Neg Respiratory: Positive: Shortness of Breath Physical Exam Narrative GENERAL: Awake, alert, emaciated, anxious, tachypnea SKIN: Focused skin assessment warm/dry. HEAD: Atraumatic. Normocephalic. EYES: Pupils equal and round. No scleral icterus. No injection or drainage. ENT: No nasal bleeding or discharge. Mucous membranes pink and moist. NECK: Trachea midline. No JVD. CARDIOVASCULAR: Regular rate and rhythm. No murmur appreciated. RESPIRATORY: Tachypnea. Decreased air entry on the right side GASTROINTESTINAL: Abdomen soft, non-tender, nondistended. Hepatic and splenic margins not palpable. MUSCULOSKELETAL: No obvious deformities. No clubbing. No cyanosis. No edema. NEUROLOGICAL: Awake and alert. No obvious cranial nerve deficits. Motor grossly within normal limits. Normal speech. PSYCHIATRIC: Appropriate mood and affect; insight and judgment normal. Data Data Last Documented VS Vital Signs Date Time Temp Pulse Resp B/P (MAP) Pulse Ox O2 Delivery O2 Flow Rate FiO2 01/24/18 11:30 86 18 130/72 (91) 97 Nasal Cannula 2.00 01/24/18 09:24 97.2 Orders Orders Chest, Single Ap (01/24/18 ) Complete Blood Count With Diff (01/24/18 09:52) Prothrombin Time / Inr (Pt) (01/24/18 09:52) Basic Metabolic Panel (Bmp) (01/24/18 09:52) Troponin I (01/24/18 10:30) B-Type Natriuretic Peptide (01/24/18 10:30) Alprazolam (Xanax) (01/24/18 12:15) Ct Pulmonary Angiogram (01/24/18 ) Admit Order (Ed Use Only) (01/24/18 12:30) Labs Laboratory Tests Test 01/24/18 09:58 01/24/18 10:55 White Blood Count 10.8 TH/MM3 Red Blood Count 4.54 MIL/MM3 Hemoglobin 14.0 GM/DL Hematocrit 40.6 % Mean Corpuscular Volume 89.5 FL Mean Corpuscular Hemoglobin 30.8 PG Mean Corpuscular Hemoglobin Concent 34.4 % Red Cell Distribution Width 14.0 % Platelet Count 340 TH/MM3 Mean Platelet Volume 9.3 FL Neutrophils (%) (Auto) 79.6 % Lymphocytes (%) (Auto) 10.6 % Monocytes (%) (Auto) 8.1 % Eosinophils (%) (Auto) 1.1 % Basophils (%) (Auto) 0.6 % Neutrophils # (Auto) 8.6 TH/MM3 Lymphocytes # (Auto) 1.1 TH/MM3 Monocytes # (Auto) 0.9 TH/MM3 Eosinophils # (Auto) 0.1 TH/MM3 Basophils # (Auto) 0.1 TH/MM3 CBC Comment AUTO DIFF Differential Comment AUTO DIFF CONFIRMED Platelet Estimate NORMAL Platelet Morphology Comment NORMAL Blood Urea Nitrogen 10 MG/DL Creatinine 0.71 MG/DL Random Glucose 80 MG/DL Calcium Level 9.0 MG/DL Sodium Level 135 MEQ/L Potassium Level 5.1 MEQ/L Chloride Level 101 MEQ/L Carbon Dioxide Level 26.4 MEQ/L Anion Gap 8 MEQ/L Estimat Glomerular Filtration Rate 80 ML/MIN Prothrombin Time 11.1 SEC Prothromb Time International Ratio 1.1 RATIO Troponin I LESS THAN 0.02 NG/ML B-Type Natriuretic Peptide 27 PG/ML MDM Medical Decision Making Medical Screen Exam Complete: Yes Emergency Medical Condition: Yes Medical Record Reviewed: Yes Interpretation(s) Twelve-lead EKG was reviewed by me. Normal sinus Differential Diagnosis Pleural effusion, congestive heart failure, PE Narrative Course 1:08 PM blood test results are back and within acceptable limits. Chest x-ray does not show any large pleural effusion. I discussed the case with Dr. Hennessy who operated on this patient and did pleurodesis. As per him patient is not an operative candidate right now. As per him he has done everything he can from his standpoint. He agreed that the chest x-ray does not show any big collection. I have been in constant touch with the patient and her and daughter to give them these information. I have answered all the questions to the best of my ability. Chest x-ray was read by the radiologist as early congestive heart failure. However the troponin and BNP are within normal limits. I have admitted her to the hospitalist service. Also speak with Dr. Gore who is patient's oncologist and inform about the patient's hospitalization. I have ordered a CT pulmonary angiogram to r/o PE. 1:[address] pulmonary angiogram does not show any PE but does show bilateral moderate pleural effusion. I discussed the case with Dr. Floyd from radiology and he wants the patient to be tapped by invasive radiology and I put the order in. I also discussed the case with Dr. Gore was patient's oncologist and as per him once the patient is tapped could probably be discharged home. I will let Dr. Gutiérrez know about this. Procedures EKG Prior to Arrival: No Physician Communication Physician Communication Dr. Floyd, Dr. Gore, Dr. Yanez Diagnosis Primary Impression: Respiratory distress Additional Impressions: Bilateral pleural effusion Metastatic lung cancer (metastasis from lung to other site) Qualified Codes: C34.90 - Malignant neoplasm of unspecified part of unspecified bronchus or lung Admitting Information Admitting Physician Requests: Observation Corwin Hernandez MD Jan 24, 2018 10:27
[2018-01-24 10:29] LABS: AUTOMATED NEUTROPHIL # 8.6 TH/MM3 (1.8-7.7); BASOPHIL # 0.1 TH/MM3 (0-0.2); BASOPHIL % 0.6 % (0.0-2.0); EOSINOPHIL # 0.1 TH/MM3 (0-0.4); EOSINOPHIL % 1.1 % (0.0-4.0); HEMATOCRIT 40.6 % (35.0-46.0); LYMPH % 10.6 % (9.0-44.0); LYMPHOCYTE # 1.1 TH/MM3 (1.0-4.8); MEAN CELL VOLUME 89.5 FL (80.0-100.0); MEAN CORPUSCULAR HEMOGLOBIN 30.8 PG (27.0-34.0); MEAN CORPUSCULAR HGB CONC 34.4 % (32.0-36.0); MEAN PLATELET VOLUME 9.3 FL (7.0-11.0); MONO % 8.1 % (0.0-8.0); MONOCYTE # 0.9 TH/MM3 (0-0.9); NEUT % 79.6 % (16.0-70.0); PLATELET COUNT 340 TH/MM3 (150-450); RED BLOOD COUNT 4.54 MIL/MM3 (4.00-5.30); WHITE BLOOD COUNT 10.8 TH/MM3 (4.0-11.0)
[2018-01-24 10:49] LABS: BICARBONATE 26.4 MEQ/L (21.0-32.0); CREATININE 0.71 MG/DL (0.50-1.00)
[2018-01-24 11:18] LABS: INTERNATIONAL NORMALIZED RATIO 1.1 RATIO; PROTHROMBIN TIME - PATIENT 11.1 SEC (9.8-11.6)
[2018-01-24] MEDS ORDERED: ALPRAZolam 0.25 MG TAB PO ONE (12:15)
[2018-01-24] MEDS ORDERED: IOHEXOL 350 MG/ML 10 ML VIAL (for RAD DIAG) IVCONTRAST ONE (12:33)
[2018-01-24] MEDS ORDERED: ACETAMINOPHEN 325 MG TAB PO PRN ×2 (13:00)
[2018-01-24] MEDS ORDERED: RESP: ALBUTEROL 2.5 MG/IPRATROPIUM 0.5 MG NEB (PRN) NEB (13:00)
[2018-01-24] MEDS ORDERED: NALOXONE HCL 0.4 MG/ML AMP IV PUSH PRN (13:00)
[2018-01-24] MEDS ORDERED: MAGNESIUM HYDROXIDE SUSP 30 ML CUP PO PRN (13:00)
[2018-01-24] MEDS ORDERED: ALPRAZolam 0.5 MG TAB PO PRN (13:00)
[2018-01-24] MEDS ORDERED: ONDANSETRON HCL 4 MG/2 ML VIAL IVP PRN (13:00)
[2018-01-24] MEDS ORDERED: SODIUM CHLORIDE 0.9% FLUSH 10 ML FLUSH IV FLUSH PRN (13:00)
[2018-01-24] MEDS ORDERED: ACETAMINOPHEN/HYDROcodone 325 MG/5 MG TAB PO PRN (13:00)
--- NOTE | 2018-01-24 13:02 | HHI.HP ---
HPI Service [facility] Primary Care Physician Non-Staff Admission Diagnosis Shortness of breath, respiratory distress, lung metastasis Diagnoses: (1) Dyspnea Chief Complaint: Shortness of breath Travel History International Travel<30 Days: No Contact w/Intl Traveler <30 Da: No Traveled to Known Affected Are: No History of Present Illness 72/ F h/o breast cancer presented to the ED for evaluation of 2 days history of increasing shortness of breath without any associated chest pain or diaphoresis. Patient had thoracentesis done about 1 week ago and states she has been feeling well until this Wednesday. She had a known h/o bilateral malignant pleural effusions, for which a VARTS as well as pleurodesis were performed almost 2 weeks ago. She also reports BLE edema however BNP in the ED was normal and initial cardiac enzymes were negative.No other issues Review of Systems Except as stated in HPI: all other systems reviewed are Neg Past Family Social History Past Medical History Anxiety: Yes Depression: Yes Cancer: Yes (R BREAST, METS TO LIVER AND BONE) Gastrointestinal Disorders: Yes (DIARRHEA from chemo meds) Genitourinary: Yes (intermittent incontinence) Respiratory: Yes Radiation Therapy: Yes Thyroid Disease: Yes Dilation and Curettage (D&C): Yes (X3) Past Surgical History Abdominal Surgery: Yes (hernia) Body Medical Devices: CHARLENE IN RIGHT LEG Genitourinary Surgery: Yes (R Kidney Stent) Mastectomy: Yes Tonsillectomy: Yes Reported Medications Ginseng Energy Booster (Ginseng) 100 Mg Cap 480 Cap PO DAILY Zofran (Ondansetron HCl) 4 Mg Tab 4 Mg PO Q6HR PRN Levothyroxine (Levothyroxine Sodium) 112 Mcg Tab 112 Mcg PO DAILY Aspirin DR (Aspirin) 81 Mg Tabdr 81 Mg PO DAILY Alprazolam 0.25 Mg Tab 0.25 Mg PO Q4H PRN Alprazolam 0.5 Mg Tab 0.5 Mg PO HS PRN Biotin 5 Mg Cap 5 Mg PO BID Vitamin D3 (Cholecalciferol) 2,000 Unit Cap 2,000 Units PO DAILY Multiple Vitamin 1 Tab 1 Tab PO DAILY Calcium Carbonate 500 Mg Calcium (1250 Mg) Tab 1,250 Mg PO BID 1,250 mg calcium carbonate (500 mg elemental calcium) Allergies: Coded Allergies: No Known Allergies (Unverified , 01/24/18) Family History Family Hypercholesterolemia Social History Alcohol Use: No Tobacco Use: No Substance Use: No Physical Exam Vital Signs Vital Signs Date Time Temp Pulse Resp B/P (MAP) Pulse Ox O2 Delivery O2 Flow Rate FiO2 01/24/18 09:24 97.2 109 32 127/80 (96) 95 Physical Exam GENERAL: This is a well-nourished, well-developed patient, in no apparent distress. SKIN: No rashes, ecchymoses or lesions. Cool and dry. HEAD: Atraumatic. Normocephalic. No temporal or scalp tenderness. EYES: Pupils equal round and reactive. Extraocular motions intact. No scleral icterus. No injection or drainage. ENT: Nose without bleeding, purulent drainage or septal hematoma. Throat without erythema, tonsillar hypertrophy or exudate. Uvula midline. Airway patent. NECK: Trachea midline. No JVD or lymphadenopathy. Supple, nontender, no meningeal signs. CARDIOVASCULAR: Regular rate and rhythm without murmurs, gallops, or rubs. RESPIRATORY: Clear to auscultation. Breath sounds decrease bilaterally. No wheezes, rales, or rhonchi. GASTROINTESTINAL: Abdomen soft, non-tender, nondistended. No hepato-splenomegaly , or palpable masses. No guarding. MUSCULOSKELETAL: Extremities without clubbing, cyanosis, or edema. No joint tenderness, effusion, or edema noted. No calf tenderness. Negative Homans sign bilaterally. Breasts: s/p right mastectomy NEUROLOGICAL: Awake and alert. Cranial nerves II through XII intact. Motor and sensory grossly within normal limits. Five out of 5 muscle strength in all muscle groups. Normal speech. Laboratory Laboratory Tests Test 01/24/18 09:58 01/24/18 10:55 White Blood Count 10.8 Red Blood Count 4.54 Hemoglobin 14.0 Hematocrit 40.6 Mean Corpuscular Volume 89.5 Mean Corpuscular Hemoglobin 30.8 Mean Corpuscular Hemoglobin Concent 34.4 Red Cell Distribution Width 14.0 Platelet Count 340 Mean Platelet Volume 9.3 Neutrophils (%) (Auto) 79.6 Lymphocytes (%) (Auto) 10.6 Monocytes (%) (Auto) 8.1 Eosinophils (%) (Auto) 1.1 Basophils (%) (Auto) 0.6 Neutrophils # (Auto) 8.6 Lymphocytes # (Auto) 1.1 Monocytes # (Auto) 0.9 Eosinophils # (Auto) 0.1 Basophils # (Auto) 0.1 CBC Comment AUTO DIFF Differential Comment AUTO DIFF CONFIRMED Platelet Estimate NORMAL Platelet Morphology Comment NORMAL Blood Urea Nitrogen 10 Creatinine 0.71 Random Glucose 80 Calcium Level 9.0 Sodium Level 135 Potassium Level 5.1 Chloride Level 101 Carbon Dioxide Level 26.4 Anion Gap 8 Estimat Glomerular Filtration Rate 80 Prothrombin Time 11.1 Prothromb Time International Ratio 1.1 Troponin I LESS THAN 0.02 B-Type Natriuretic Peptide 27 Result Diagram: 01/24/18 0958 01/24/18 0958 Imaging Last Impressions Chest X-Ray 01/24/18 0000 Signed Impressions: Service Date/Time: Wednesday, January 24, 2018 10:01 - CONCLUSION: Mild congestive failure with increasing bibasilar parenchymal changes worse on the left. Jarrell Floyd MD FACR Septic Shock Reassessment Septic shock perfusion: reassessment completed Caprini VTE Risk Assessment Caprini VTE Risk Assessment: Mod/High Risk (score >= 2) Caprini Risk Assessment Model Point Value = 1 Point Value = 2 Point Value = 3 Point Value = 5 Age 41-60 Minor surgery BMI > 25 kg/m2 Swollen legs Varicose veins or History of unexplained or recurrent spontaneous Oral contraceptives or hormone replacement Sepsis (< 1 month) Serious lung disease, including pneumonia (< 1 month) Abnormal pulmonary function Acute myocardial infarction Congestive heart failure (< 1 month) History of inflammatory bowel disease Medical patient at bed rest Age 61-74 Arthroscopic surgery Major open surgery (> 45 min) Laparoscopic surgery (> 45 min) Malignancy Confined to bed (> 72 hours) Immobilizing plaster cast Central venous access Age >= 75 History of VTE Family history of VTE Factor V Leiden Prothrombin [id number] Lupus anticoagulant Anticardiolipin antibodies Elevated serum homocysteine Heparin-induced thrombocytopenia Other congenital or acquired thrombophilia Stroke (< 1 month) Elective arthroplasty Hip, pelvis, or leg fracture Acute spinal cord injury (< 1 month) Prophylaxis Regimen Total Risk Factor Score Risk Level Prophylaxis Regimen 0-1 Low Early ambulation 2 Moderate Order ONE of the following: *Sequential Compression Device (SCD) *Heparin 5000 units SQ BID 3-4 Higher Order ONE of the following medications: *Heparin 5000 units SQ TID *Enoxaparin/Lovenox 40 mg SQ daily (WT < 150 kg, CrCl > 30 mL/min) *Enoxaparin/Lovenox 30 mg SQ daily (WT < 150 kg, CrCl > 10-29 mL/min) *Enoxaparin/Lovenox 30 mg SQ BID (WT < 150 kg, CrCl > 30 mL/min) AND/OR *Sequential Compression Device (SCD) 5 or more Highest Order ONE of the following medications: *Heparin 5000 units SQ TID (Preferred with Epidurals) *Enoxaparin/Lovenox 40 mg SQ daily (WT < 150 kg, CrCl > 30 mL/min) *Enoxaparin/Lovenox 30 mg SQ daily (WT < 150 kg, CrCl > 10-29 mL/min) *Enoxaparin/Lovenox 30 mg SQ BID (WT < 150 kg, CrCl > 30 mL/min) AND *Sequential Compression Device (SCD) Assessment and Plan Problem List: (1) Dyspnea ICD Code: R06.00 - Dyspnea, unspecified Assessment and Plan 72-year-old female with Dyspnea History of bilateral pleural effusion Recent thoracentesis Recent VATS Chest x-ray noted and reviewed by me with mild congestive failure with increasing Bibasilar parenchyma changes worse on the left CTA pending to rule out PE BNP within normal limit and initial cardiac enzymes unremarkable Patient currently no longer surgical candidate for VATS vs other DuoNeb as needed and keep oxygen saturation above 88-92% History of breast cancer with metastases Currently on chemo, therefore we will consult medical oncology Family declined palliative care medicine consultation DVT prophylaxis: Bilateral SCDs Code Status DNR Discussed Condition With Patient, , daughter, ED physician Michi Gutiérrez MD Jan 24, 2018 13:02
--- NOTE | 2018-01-24 13:19 | RADRPT ---
EXAM DATE/TIME: 01/24/2018 12:51 [facility] COMPARISON: CHEST SINGLE AP, January 24, 2018, 10:01. CT PULMONARY ANGIOGRAM, November 19, 2017, 12:12. INDICATIONS : Shortness of breath, evaluate for embolism. IV CONTRAST: 72 cc Omnipaque 350 (iohexol) IV RADIATION DOSE: 5.21 CTDIvol (mGy) MEDICAL HISTORY : Right breast cancer with mets to liver and bone, thyroid disease. SURGICAL HISTORY : Mastectomy. ENCOUNTER: Initial ACUITY: 1 day PAIN SCALE: 0/10 LOCATION: chest TECHNIQUE: Volumetric scanning of the chest was performed using a pulmonary embolism protocol MIP images were re constructed. Using automated exposure control and adjustment of the mA and/or kV according to patien t size, radiation dose was kept as low as reasonably achievable to obtain optimal diagnostic quality images. DICOM format image data is available electronically for review and comparison. Follow-up recommendations for detected pulmonary nodules are based at a minimum on nodule size and pa tient risk factors according to Fleischner Society Guidelines. FINDINGS: The study is abnormal the large right pleural effusion occupying approximately 1/2 the right hemithor ax. There is is slightly smaller left pleural effusion. There is no axillary adenopathy. There is no mediastinal adenopathy. There is no pericardial effusion Multiple apparent metastases are seen in the liver. Widespread bony metastatic disease without obvious impending collapse or cord impingement. Correlation is suggested. CONCLUSION: Large bilateral pleural effusions underestimated on the chest x-ray.. Metastatic disease to liver Widespread bony metastatic disease as above. Jarrell Floyd MD FACR on January 24, 2018 at 13:11 Board Certified Radiologist. This report was verified electronically.
--- NOTE | 2018-01-24 13:42 | HHI.PR ---
Addendum to Inpatient Note Addendum Reason: Additional Documentation Additional Information Case was again discussed with ED physician with the report of CTA finding New finding was then discussed with family members CTA with finding of bilateral pleural effusion for which patient will undergo thoracentesis, then discharge home with follow-up with PCP in medical oncology Last Impressions Chest X-Ray 01/24/18 0000 Signed Impressions: Service Date/Time: Wednesday, January 24, 2018 10:01 - CONCLUSION: Mild congestive failure with increasing bibasilar parenchymal changes worse on the left. Jarrell Floyd MD FACR CT Angiography 01/24/18 0000 Signed Impressions: Service Date/Time: Wednesday, January 24, 2018 12:51 - CONCLUSION: Large bilateral pleural effusions underestimated on the chest x-ray.. Metastatic disease to liver Widespread bony metastatic disease as above. Jarrell Floyd MD FACR Discharge patient to home Condition on discharge: Improved Regular Diet as tolerated Ad Idalia activity Rx written:None Follow-up with primary care physician in 1 week Michi Gutiérrez MD Jan 24, 2018 13:42
--- NOTE | 2018-01-24 16:01 | RADRPT ---
EXAM DATE/TIME: 01/24/2018 15:29 [facility] COMPARISON: No previous studies available for comparison. INDICATIONS : Left pleural effusion. MEDICAL HISTORY : Carcinoma, breast. Carcinoma, breast. Depression. Mets to liver and bone. Chemotherapy. Anticoagulant therapy. SURGICAL HISTORY : Tonsillectomy. Mastectomy, right. Hernia repair. Dilation and curettage. ENCOUNTER: Subsequent ACUITY: 1 week PAIN SCORE: 0/10 LOCATION: Left chest MEASUREMENTS: SKIN TO PARIETAL PLEURA: 1.1 cm SKIN TO MAX SAFE DEPTH: 2.6 cm ESTIMATED FLUID VOLUME: 646 cc FLUID COMPOSITION: complex FINDINGS: Pleural effusion as above. A yris was placed on the skin surface superficial to the pleural fluid col lection. CONCLUSION: 1. Complex pleural effusion in the left hemithorax. Area was marked on the skin surface. 2. Estimated fluid volume is 646 cc Surya Correa MD on January 24, 2018 at 15:58 Board Certified Radiologist. This report was verified electronically.
[2018-01-24] MEDS ORDERED: LIDOCAINE HCL 1% 20 ML VIAL ONE (16:02)
--- NOTE | 2018-01-24 16:04 | RADRPT ---
EXAM DATE/TIME: 01/24/2018 15:03 [facility] COMPARISON: US GUIDED THORACENTESIS RIGHT, November 26, 2017, 10:02. INDICATIONS : Right pleural effusion. MEDICAL HISTORY : Breast cancer with mets. Chemotherapy. SURGICAL HISTORY : D&C. Right leg surgery. Hernia repair. Right kidney stent. Mastectomy. ENCOUNTER: Initial ACUITY: 1 day PAIN SCORE: 0/10 LOCATION: Right chest FLUID: Total volume of 1400 cc of clear, yellow fluid was removed. Fluid was discarded. Thoracentesis was therapeutic only. TECHNIQUE: 1. Ultrasound guidance for thoracentesis. 2. Thoracentesis. The risks, benefits, and alternatives to ultrasound guided thoracentesis were explained to the patien t in lay simple terms, including the risk of bleeding and infection. Written and verbal informed con sent was obtained. Appropriate area for thoracentesis was marked under ultrasound guidance with the patient in the uprig ht position. Overlying skin was prepped and draped in the usual sterile fashion and with local anest hetic, a dermatotomy was made with an 11 blade scalpel. A 6 [place]an thoracentesis catheter was placed in the pleural space and fluid was removed. Catheter was then removed and a sterile dressing applie d. There were no immediate complications. The patient tolerated the procedure well and the left the ultrasound suite in stable condition. Chest radiograph is to be obtained. CONCLUSION: Uncomplicated ultrasound guided thoracentesis. Michi Kwong MD on January 24, 2018 at 16:01 Board Certified Radiologist. This report was verified electronically.
--- NOTE | 2018-01-24 16:06 | RADRPT ---
EXAM DATE/TIME: 01/24/2018 15:37 [facility] COMPARISON: CHEST SINGLE AP, January 24, 2018, 10:01. CHEST EXPIRATION ONLY, January 14, 2018, 11:44. INDICATIONS : Post right side thoracentesis MEDICAL HISTORY : right breast cancer with mets to the liver and bone, thyroid disease SURGICAL HISTORY : mastectomy ENCOUNTER: Initial ACUITY: 1 day PAIN SCORE: 0/10 LOCATION: Bilateral chest FINDINGS: A single frontal expiratory view of the chest was performed. The right lung is clear. No evidence o f pneumothorax. Left basilar pleural-parenchymal density. Prominent mediastinal densities could be adenopathy. Right-sided port is unchanged. Osseous structure s are intact. CONCLUSION: Right lung is clear without pneumothorax. Michi Kwong MD on January 24, 2018 at 16:03 Board Certified Radiologist. This report was verified electronically.
[2018-01-24] MEDS ORDERED: SODIUM CHLORIDE 0.9% FLUSH 10 ML FLUSH IV FLUSH SCH (21:00)
[2018-01-24] MEDS ORDERED: CALCIUM CARBONATE 1.25 GM (CA 500 MG) TAB PO SCH (21:00)
[2018-01-25] MEDS ORDERED: LEVOTHYROXINE SODIUM 112 MCG TAB PO SCH (06:00)
[2018-01-25] MEDS ORDERED: ASPIRIN EC 81 MG TABEC PO SCH (09:00)
== END 2018-01-24 16:40 | disposition home or self-care (01) ==
LOC: NEPE 09:18 → NEDA 12:32
PROVIDERS: ADMIT Hospitalist; ATTEND Hospitalist
DX: R06.00 Dyspnea, unspecified (principal); J90 Pleural effusion, not elsewhere classified; J81.0 Acute pulmonary edema; E07.9 Disorder of thyroid, unspecified; C50.919 Malignant neoplasm of unspecified site of unspecified female breast; C78.7 Secondary malignant neoplasm of liver and intrahepatic bile duct; C78.00 Secondary malignant neoplasm of unspecified lung; R32 Unspecified urinary incontinence; F41.9 Anxiety disorder, unspecified; F32.9 Major depressive disorder, single episode, unspecified; Z79.899 Other long term (current) drug therapy; Z79.82 Long term (current) use of aspirin
CPT/HCPCS: 32555; 71045; 71275; 76604; 80048; 83880; 84484; 85025; 85610; 99285; C1729; G0378; Q9967

== ENCOUNTER 2018-02-04 07:53 | Day surgery (SDC) | payer MEDICARE ==
[2018-02-04 08:22] VITALS: BP 124/80; PULSE 88; RESP 18; TEMP 98.9; O2SAT 96
--- NOTE | 2018-02-04 09:29 | RADRPT ---
EXAM DATE/TIME: 02/04/2018 09:12 [facility] COMPARISON: CHEST EXPIRATION ONLY, January 24, 2018, 15:37. INDICATIONS : Post right thoracentesis. MEDICAL HISTORY : right breast cancer with mets to the liver and bone, thyroid disease SURGICAL HISTORY : Mastectomy, right. infusaport ENCOUNTER: Initial ACUITY: 1 day PAIN SCORE: 0/10 LOCATION: Right chest FINDINGS: A single frontal expiratory view of the chest was performed. There is no evidence of pneumothorax sta tus post right thoracentesis. No significant right pleural effusion remains. A small partially locula jeanette left pleural effusion is stable. Right internal jugular [id number] has its tip in the super ve na cava. The heart is stable. CONCLUSION: No evidence of pneumothorax status post right thoracentesis. Charles Ferrera MD on February 04, 2018 at 9:24 Board Certified Radiologist. This report was verified electronically.
[2018-02-04 09:40] VITALS: BP 118/67; PULSE 82; RESP 18; TEMP 97; O2SAT 92
[2018-02-04] MEDS ORDERED: LIDOCAINE HCL 1% PF 30 ML VIAL ONE (09:44)
[2018-02-04 09:55] VITALS: BP 111/69; PULSE 85; RESP 18; TEMP 97; O2SAT 95
--- NOTE | 2018-02-04 10:32 | RADRPT ---
EXAM DATE/TIME: 02/04/2018 08:33 [facility] COMPARISON: US GUIDED THORACENTESIS RIGHT, January 24, 2018, 15:03. INDICATIONS : Right pleural effusion. MEDICAL HISTORY : Breast cancer with mets. Chemotherapy. SURGICAL HISTORY : D&C. Right leg surgery. Hernia repair. Right kidney stent. Mastectomy. ENCOUNTER: Subsequent ACUITY: 3 weeks PAIN SCORE: 2/10 LOCATION: Right chest FLUID: Total volume of 1400 cc of clear, yellow fluid was removed. Fluid was discarded. Thoracentesis was therapeutic only. TECHNIQUE: 1. Ultrasound guidance for thoracentesis. 2. Thoracentesis. The risks, benefits, and alternatives to ultrasound guided thoracentesis were explained to the patien t in lay simple terms, including the risk of bleeding and infection. Written and verbal informed con sent was obtained. Appropriate area for thoracentesis was marked under ultrasound guidance with the patient in the uprig ht position. Overlying skin was prepped and draped in the usual sterile fashion and with local anest hetic, a dermatotomy was made with an 11 blade scalpel. A 6 [place]ian thoracentesis catheter was placed in the pleural space and fluid was removed. Catheter was then removed and a sterile dressing applie d. There were no immediate complications. The patient tolerated the procedure well and the left the ultrasound suite in stable condition. Chest radiograph is to be obtained. CONCLUSION: Uncomplicated ultrasound guided right thoracentesis. Charles Ferrera MD on February 04, 2018 at 10:29 Board Certified Radiologist. This report was verified electronically.
== END 2018-02-04 10:10 | disposition home or self-care (01) ==
LOC: HRAD 07:53 → HRIP 08:08 → HRAD 10:10
PROVIDERS: ATTEND Internal Medicine Hematology & Oncology
DX: J90 Pleural effusion, not elsewhere classified (principal)
CPT/HCPCS: 32555; 71045; C1729

== ENCOUNTER 2018-02-27 09:18 | Observation (INO) | payer MEDICARE ==
[~2018-02-27] VITALS: Ht 157.5 cm; Wt 45.5 kg
[2018-02-27 09:29] VITALS: BP 106/70; PULSE 123; RESP 22; TEMP 98; O2SAT 93
[2018-02-27] MEDS ORDERED: PRED10PA PO (09:55)
[2018-02-27] MEDS ORDERED: SODIUM CHLORIDE 0.9% FLUSH 10 ML FLUSH IVF PRN (10:15)
[2018-02-27] MEDS ORDERED: RESP: ALBUTEROL 2.5 MG/3 ML NEB (SCH) INH ONE (10:15)
[2018-02-27 10:24] VITALS: O2SAT 100
[2018-02-27 10:46] LABS: AUTOMATED NEUTROPHIL # 3.1 TH/MM3 (1.8-7.7); BASOPHIL % 0.8 % (0.0-2.0); EOSINOPHIL % 0.9 % (0.0-4.0); HEMATOCRIT 34.8 % (35.0-46.0); HEMOGLOBIN 11.9 GM/DL (11.6-15.3); LYMPH % 8.7 % (9.0-44.0); LYMPHOCYTE # 0.3 TH/MM3 (1.0-4.8); MEAN CELL VOLUME 96.3 FL (80.0-100.0); MEAN CORPUSCULAR HGB CONC 34.3 % (32.0-36.0); MEAN PLATELET VOLUME 8.1 FL (7.0-11.0); MONOCYTE # 0.1 TH/MM3 (0-0.9); NEUT % 85.6 % (16.0-70.0); PLATELET COUNT 236 TH/MM3 (150-450); RED BLOOD COUNT 3.61 MIL/MM3 (4.00-5.30); RED CELL DISTRIBUTION WIDTH 22.6 % (11.6-17.2); WHITE BLOOD COUNT 3.6 TH/MM3 (4.0-11.0)
[2018-02-27 10:59] LABS: PROTHROMBIN TIME - PATIENT 10.1 SEC (9.8-11.6)
[2018-02-27 11:08] LABS: ALBUMIN 2.4 GM/DL (3.4-5.0); AST (GOT) 24 U/L (15-37); BICARBONATE 30.9 MEQ/L (21.0-32.0); BLOOD UREA NITROGEN 14 MG/DL (7-18); CHLORIDE 102 MEQ/L (98-107); CREATININE 0.65 MG/DL (0.50-1.00); GLOMERULAR FILTRATION RATE 89 ML/MIN (>89); GLUCOSE,RANDOM 114 MG/DL (74-106); SODIUM (NA) 140 MEQ/L (136-145)
[2018-02-27 11:13] LABS: ALKALINE PHOSPHATASE 105 U/L (45-117); ALT (GPT) 26 U/L (10-53); TOTAL BILIRUBIN ADULT 0.9 MG/DL (0.2-1.0); TOTAL PROTEIN 5.8 GM/DL (6.4-8.2); TROPONIN I LESS THAN 0.02 NG/ML (0.02-0.05)
--- NOTE | 2018-02-27 11:20 | RADRPT ---
EXAM DATE/TIME: 02/27/2018 10:24 [facility] COMPARISON: CHEST EXPIRATION ONLY, February 04, 2018, 9:12. CHEST SINGLE AP, January 24, 2018, 10:01. INDICATIONS : Short of breath. Requires drainage of fluid in pleural cavity about every month. MEDICAL HISTORY : Breast cancer with mets. Chemotherapy. SURGICAL HISTORY : D&C. Right leg surgery. Hernia repair. Right kidney stent. Mastectomy. ENCOUNTER: Initial ACUITY: 1 month PAIN SCORE: 0/10 LOCATION: Bilateral chest FINDINGS: [id number] catheter is stable in position. Lower lateral left chest opacity characteristic of foc al pleural effusion is similar in size when compared to 01/24/18. Increasing non-consolidative infilt rates in the right lower lung loss of delineation of the right heart border and right hemidiaphragm. There is also increasing left hilar infiltrate. CONCLUSION: 1. Increasing areas of infiltrate in the right lower lung and left perihilar lung. 2. Stable size of the left pleural effusion. Rudi Bridges MD on February 27, 2018 at 11:17 Board Certified Radiologist. This report was verified electronically.
[2018-02-27 11:48] VITALS: BP 110/67; PULSE 108; RESP 20; O2SAT 97
--- NOTE | 2018-02-27 12:50 | PD ---
HPI Chief Complaint: Respiratory Symptoms Time Seen by Provider: 09:50 Travel History International Travel<30 days: No Contact w/Intl Traveler<30days: No Traveled to known affect area: No History of Present Illness HPI Patient is a 72 year old female, with history of metastatic breast cancer, who comes in complaining of SOB. She has history of fluid build up in her lungs requiring drainage in the past. She says she has been feeling increasingly short of breath for the past week and was trying to make it to her next appointment, but her SOB has been getting worse. She says it is worse with movement. She denies any pain. She denies fever or chills. She is on chemo, last dose was Wednesday. Severity is moderate. PFSH Past Medical History Hx Anticoagulant Therapy: Yes (asa) Anxiety: Yes Depression: Yes Heart Rhythm Problems: No Cancer: Yes (R BREAST, METS TO LIVER AND BONE) Cardiovascular Problems: No High Cholesterol: No Chemotherapy: Yes (currently Qweek ) Chest Pain: No Congestive Heart Failure: No Diabetes: No Endocrine: No Gastrointestinal Disorders: Yes (DIARRHEA from chemo meds) Genitourinary: Yes (intermittent incontinence) Hepatitis: No Immune Disorder: Yes (DUE TO CHEMO) Musculoskeletal: Yes Neurologic: No Psychiatric: Yes Reproductive: No Respiratory: Yes Radiation Therapy: Yes Thyroid Disease: Yes Menopausal: Yes Dilation and Curettage (D&C): Yes (X3) Past Surgical History Abdominal Surgery: Yes (hernia) Body Medical Devices: CHARLENE IN RIGHT LEG Ear Surgery: No Endocrine Surgery: No Eye Surgery: No Genitourinary Surgery: Yes (R Kidney Stent) Gynecologic Surgery: No Joint Replacement: No Mastectomy: Yes Oral Surgery: No Tonsillectomy: Yes Other Surgery: Yes Family History Family Hypercholesterolemia: Yes Social History Alcohol Use: No Tobacco Use: No Substance Use: No Allergies-Medications (Allergen,Severity, Reaction): Coded Allergies: No Known Allergies (Unverified , 02/27/18) Reported Meds & Prescriptions Reported Meds & Active Scripts Active Reported Prednisone (21) 10 mg tab Dose Pack (Prednisone) 10 Mg Pack 10 Mg PO DIRECTED Zofran (Ondansetron HCl) 4 Mg Tab 4 Mg PO Q6HR PRN Levothyroxine (Levothyroxine Sodium) 112 Mcg Tab 112 Mcg PO DAILY Aspirin DR (Aspirin) 81 Mg Tabdr 81 Mg PO DAILY Alprazolam 0.25 Mg Tab 0.25 Mg PO Q4H PRN Alprazolam 0.5 Mg Tab 0.5 Mg PO HS PRN Vitamin D3 (Cholecalciferol) 2,000 Unit Cap 2,000 Units PO DAILY Multiple Vitamin 1 Tab 1 Tab PO DAILY Calcium Carbonate 500 Mg Calcium (1250 Mg) Tab 1,250 Mg PO BID 1,250 mg calcium carbonate (500 mg elemental calcium) Review of Systems Except as stated in HPI: all other systems reviewed are Neg General / Constitutional: No: Fever, Chills HENT: No: Headaches, Lightheadedness Cardiovascular: No: Chest Pain or Discomfort Respiratory: Positive: Shortness of Breath Gastrointestinal: No: Nausea, Vomiting Musculoskeletal: No: Myalgias, Edema Skin: No Rash, No Change in Pigmentation Neurologic: No: Weakness, Dizziness Physical Exam Narrative GENERAL: Awake and alert, in mild respiratory distress. SKIN: Focused skin assessment warm/dry. HEAD: Atraumatic. Normocephalic. EYES: Pupils equal and round. No scleral icterus. No injection or drainage. ENT: Mucous membranes pink and moist. NECK: Trachea midline. No JVD. CARDIOVASCULAR: Regular rate and rhythm. No murmur appreciated. RESPIRATORY: No accessory muscle use. Crackles at the lung bases. Breath sounds equal bilaterally. GASTROINTESTINAL: Abdomen soft, non-tender, nondistended. MUSCULOSKELETAL: No obvious deformities. No clubbing. No cyanosis. No edema. NEUROLOGICAL: Awake and alert. No obvious cranial nerve deficits. Motor grossly within normal limits. Normal speech. PSYCHIATRIC: Appropriate mood and affect; insight and judgment normal. Data Data Last Documented VS Vital Signs Date Time Temp Pulse Resp B/P (MAP) Pulse Ox O2 Delivery O2 Flow Rate FiO2 02/27/18 11:48 108 20 110/67 (81) 97 Nasal Cannula 2.00 02/27/18 09:29 98.0 Orders Orders Complete Blood Count With Diff (02/27/18 10:02) Comprehensive Metabolic Panel (02/27/18 10:02) Act Partial Throm Time (Ptt) (02/27/18 10:02) Prothrombin Time / Inr (Pt) (02/27/18 10:02) Troponin I (02/27/18 10:02) Iv Access Insert/Monitor (02/27/18 10:02) Electrocardiogram (02/27/18 10:02) Ecg Monitoring (02/27/18 10:02) Oximetry (02/27/18 10:02) Oxygen Administration (02/27/18 10:02) Chest, Single Ap (02/27/18 10:02) Sodium Chloride 0.9% Flush (Ns Flush) (02/27/18 10:15) Albuterol Neb (Albuterol Neb) (02/27/18 10:15) Admit Order (Ed Use Only) (02/27/18 ) Labs Laboratory Tests Test 02/27/18 10:10 White Blood Count 3.6 TH/MM3 Red Blood Count 3.61 MIL/MM3 Hemoglobin 11.9 GM/DL Hematocrit 34.8 % Mean Corpuscular Volume 96.3 FL Mean Corpuscular Hemoglobin 33.0 PG Mean Corpuscular Hemoglobin Concent 34.3 % Red Cell Distribution Width 22.6 % Platelet Count 236 TH/MM3 Mean Platelet Volume 8.1 FL Neutrophils (%) (Auto) 85.6 % Lymphocytes (%) (Auto) 8.7 % Monocytes (%) (Auto) 4.0 % Eosinophils (%) (Auto) 0.9 % Basophils (%) (Auto) 0.8 % Neutrophils # (Auto) 3.1 TH/MM3 Lymphocytes # (Auto) 0.3 TH/MM3 Monocytes # (Auto) 0.1 TH/MM3 Eosinophils # (Auto) 0.0 TH/MM3 Basophils # (Auto) 0.0 TH/MM3 CBC Comment DIFF FINAL Differential Comment Prothrombin Time 10.1 SEC Prothromb Time International Ratio 1.0 RATIO Activated Partial Thromboplast Time 27.1 SEC Blood Urea Nitrogen 14 MG/DL Creatinine 0.65 MG/DL Random Glucose 114 MG/DL Total Protein 5.8 GM/DL Albumin 2.4 GM/DL Calcium Level 8.0 MG/DL Alkaline Phosphatase 105 U/L Aspartate Amino Transf (AST/SGOT) 24 U/L Alanine Aminotransferase (ALT/SGPT) 26 U/L Total Bilirubin 0.9 MG/DL Sodium Level 140 MEQ/L Potassium Level 3.5 MEQ/L Chloride Level 102 MEQ/L Carbon Dioxide Level 30.9 MEQ/L Anion Gap 7 MEQ/L Estimat Glomerular Filtration Rate 89 ML/MIN Troponin I LESS THAN 0.02 NG/ML MDM Medical Decision Making Medical Screen Exam Complete: Yes Emergency Medical Condition: Yes Medical Record Reviewed: Yes Interpretation(s) ECG shows sinus tachycardia at a rate of 103, low voltage, frequent PVCs Differential Diagnosis Pleural effusion versus pneumonia versus electrolyte abnormality versus dehydration Narrative Course Patient is a 72-year-old female who comes in complaining of shortness of breath. She has history of pleural effusions that have needed to be drained in the past, and says that this feels similar. Exam shows crackles at both lung bases. Port accessed, labs sent. Labs show no acute abnormalities. Chest x-ray is concerning for a recurrent pleural effusion. Last 24 hours Impressions Chest X-Ray 02/27/18 1002 Signed Impressions: Service Date/Time: Tuesday, February 27, 2018 10:24 - CONCLUSION: 1. Increasing areas of infiltrate in the right lower lung and left perihilar lung. 2. Stable size of the left pleural effusion. Rudi Bridges MD Patient will be placed in observation for IR drainage of the effusion. Diagnosis Primary Impression: Malignant pleural effusion Admitting Information Admitting Physician Requests: Observation Latonia Galloway MD February 27, 2018 12:50
[2018-02-27] MEDS ORDERED: ALPRAZolam 0.25 MG TAB PO ONE (13:30)
[2018-02-27] MEDS ORDERED: MORPHINE SULFATE 4 MG/ML INJ IV PUSH PRN (13:45)
[2018-02-27] MEDS ORDERED: ACETAMINOPHEN 325 MG TAB PO PRN (13:45)
[2018-02-27] MEDS ORDERED: NALOXONE HCL 0.4 MG/ML AMP IV PUSH PRN (13:45)
[2018-02-27] MEDS ORDERED: ACETAMINOPHEN/HYDROcodone 325 MG/10 MG TAB PO PRN (13:45)
[2018-02-27] MEDS ORDERED: ACETAMINOPHEN/HYDROcodone 325 MG/5 MG TAB PO PRN (13:45)
[2018-02-27] MEDS ORDERED: ONDANSETRON HCL 4 MG/2 ML VIAL IVP PRN (13:45)
[2018-02-27] MEDS ORDERED: SENNOSIDES 8.6 MG TAB PO PRN (13:45)
[2018-02-27] MEDS ORDERED: MAGNESIUM HYDROXIDE SUSP 30 ML CUP PO PRN (13:45)
[2018-02-27] MEDS ORDERED: ENOXAPARIN SODIUM 40 MG/0.4 ML SYRINGE SQ SCH (15:00)
--- NOTE | 2018-02-27 15:57 | HHI.HP ---
[facility] Non-Staff Admission Diagnosis pleural effusion Diagnoses: Chief Complaint: Short of breath Travel History International Travel<30 Days: No Contact w/Intl Traveler <30 Da: No Traveled to Known Affected Are: No History of Present Illness 72 years old female with history of metastatic breast cancer to the skin pleural lungs and liver who is on chemotherapy Taxol last chemo was on Wednesday patient had multiple malignant pleural effusion she required thoracentesis multiple time. Patient had a CT of her chest ordered by oncologist on Wednesday she supposed to follow-up with him on Wednesday however patient could not handle and she came to the ED complaining of worsening short of breath, patient of feeling better being on oxygen, awaiting thoracentesis by IR, denied hematemesis or chest pain , no other associated symptoms. 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 margins negative. developed abnormalities in vision left eye and metastatic lesion found to choroid. 02/03/2016 - left axillary excision- metastatic adenocarcinoma 2.2 cm resection margin + , ER 90%, ID 5%, her 2 negative. 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 felt to have small mets lung 01/04/[address] scans and increasing nodules chest wall - tamoxifen started and arimidex discontinued. 02/09/2017- note refers to possible progression of chest wall nodules and did not feel well and tamoxifen stopped and faslodex started. -[facility] on 03/22/[address] Egan- recommended faslodex with Ibrance. due for faslodex march 06. scheduled for pet scan Review of Systems All systems reviewed and was positive for what is mentioned in history of present illness otherwise negative Past Family Social History Past Medical History Anxiety Depression Breast cancer metastases to liver skin pleura and lungs, On chemotherapy, status post radiation and tamoxifen Hernia repair The rise in the right leg Right kidney stent Mastectomy Past Surgical History As above Allergies: Coded Allergies: No Known Allergies (Unverified , 02/27/18) Family History Mother had colon cancer Social History Quit smoking 30 years ago, quit drinking alcohol 6 years ago, no illicit drug Physical Exam Vital Signs Vital Signs Date Time Temp Pulse Resp B/P (MAP) Pulse Ox O2 Delivery O2 Flow Rate FiO2 02/27/18 15:01 (81) Nasal Cannula 2.00 02/27/18 11:48 108 20 110/67 (81) 97 Nasal Cannula 2.00 02/27/18 10:24 100 Nasal Cannula 2.00 02/27/18 10:17 99 Nasal Cannula 2.00 02/27/18 10:17 Nasal Cannula 2.00 02/27/18 09:48 112 24 98 Nasal Cannula 2.00 02/27/18 09:29 98.0 123 22 106/70 (82) 93 Physical Exam GENERAL: This is frail cachectic patient well-developed in no acute distress on O2 nasal cannula SKIN: No rashes, warm and dry HEAD: Atraumatic. Normocephalic. EYES: Pupils equal round and reactive. Extraocular motions intact. No scleral icterus. ENT: Nose without bleeding, or drainage, Airway patent. NECK: Trachea midline. Supple CARDIOVASCULAR: Diminished breath sounds on the left base with crackles RESPIRATORY: Fair air entry bilaterally. No wheezes, rales, or rhonchi. GASTROINTESTINAL: Abdomen soft, non-tender, nondistended. Positive bowel sounds MUSCULOSKELETAL: Extremities without clubbing, cyanosis, or edema. Pedal pulses appreciated NEUROLOGICAL: Awake and alert. Moves all extremity. Normal speech.no focal neurological deficit Laboratory Laboratory Tests Test 02/27/18 10:10 White Blood Count 3.6 Red Blood Count 3.61 Hemoglobin 11.9 Hematocrit 34.8 Mean Corpuscular Volume 96.3 Mean Corpuscular Hemoglobin 33.0 Mean Corpuscular Hemoglobin Concent 34.3 Red Cell Distribution Width 22.6 Platelet Count 236 Mean Platelet Volume 8.1 Neutrophils (%) (Auto) 85.6 Lymphocytes (%) (Auto) 8.7 Monocytes (%) (Auto) 4.0 Eosinophils (%) (Auto) 0.9 Basophils (%) (Auto) 0.8 Neutrophils # (Auto) 3.1 Lymphocytes # (Auto) 0.3 Monocytes # (Auto) 0.1 Eosinophils # (Auto) 0.0 Basophils # (Auto) 0.0 CBC Comment DIFF FINAL Differential Comment Prothrombin Time 10.1 Prothromb Time International Ratio 1.0 Activated Partial Thromboplast Time 27.1 Blood Urea Nitrogen 14 Creatinine 0.65 Random Glucose 114 Total Protein 5.8 Albumin 2.4 Calcium Level 8.0 Alkaline Phosphatase 105 Aspartate Amino Transf (AST/SGOT) 24 Alanine Aminotransferase (ALT/SGPT) 26 Total Bilirubin 0.9 Sodium Level 140 Potassium Level 3.5 Chloride Level 102 Carbon Dioxide Level 30.9 Anion Gap 7 Estimat Glomerular Filtration Rate 89 Troponin I LESS THAN 0.02 Result Diagram: 02/27/18 1010 02/27/18 1010 Imaging Last Impressions Chest X-Ray 02/27/18 1002 Signed Impressions: Service Date/Time: Tuesday, February 27, 2018 10:24 - CONCLUSION: 1. Increasing areas of infiltrate in the right lower lung and left perihilar lung. 2. Stable size of the left pleural effusion. MD Bandar Stanley VTE Risk Assessment Caprini VTE Risk Assessment: Mod/High Risk (score >= 2) Caprini Risk Assessment Model Point Value = 1 Point Value = 2 Point Value = 3 Point Value = 5 Age 41-60 Minor surgery BMI > 25 kg/m2 Swollen legs Varicose veins or History of unexplained or recurrent spontaneous Oral contraceptives or hormone replacement Sepsis (< 1 month) Serious lung disease, including pneumonia (< 1 month) Abnormal pulmonary function Acute myocardial infarction Congestive heart failure (< 1 month) History of inflammatory bowel disease Medical patient at bed rest Age 61-74 Arthroscopic surgery Major open surgery (> 45 min) Laparoscopic surgery (> 45 min) Malignancy Confined to bed (> 72 hours) Immobilizing plaster cast Central venous access Age >= 75 History of VTE Family history of VTE Factor V Leiden Prothrombin [id number] Lupus anticoagulant Anticardiolipin antibodies Elevated serum homocysteine Heparin-induced thrombocytopenia Other congenital or acquired thrombophilia Stroke (< 1 month) Elective arthroplasty Hip, pelvis, or leg fracture Acute spinal cord injury (< 1 month) Prophylaxis Regimen Total Risk Factor Score Risk Level Prophylaxis Regimen 0-1 Low Early ambulation 2 Moderate Order ONE of the following: *Sequential Compression Device (SCD) *Heparin 5000 units SQ BID 3-4 Higher Order ONE of the following medications: *Heparin 5000 units SQ TID *Enoxaparin/Lovenox 40 mg SQ daily (WT < 150 kg, CrCl > 30 mL/min) *Enoxaparin/Lovenox 30 mg SQ daily (WT < 150 kg, CrCl > 10-29 mL/min) *Enoxaparin/Lovenox 30 mg SQ BID (WT < 150 kg, CrCl > 30 mL/min) AND/OR *Sequential Compression Device (SCD) 5 or more Highest Order ONE of the following medications: *Heparin 5000 units SQ TID (Preferred with Epidurals) *Enoxaparin/Lovenox 40 mg SQ daily (WT < 150 kg, CrCl > 30 mL/min) *Enoxaparin/Lovenox 30 mg SQ daily (WT < 150 kg, CrCl > 10-29 mL/min) *Enoxaparin/Lovenox 30 mg SQ BID (WT < 150 kg, CrCl > 30 mL/min) AND *Sequential Compression Device (SCD) Assessment and Plan Assessment and Plan Acute dyspnea with respiratory failure Right lower lobe increasing infiltrate with pleural effusion rule out underlying pneumonia in a patient who is immunocompromised on chemotherapy History of recurrent malignant pleural effusion due to breast cancer Breast cancer with metastases to the skin liver pleura and lung Leukopenia mostly due to chemo Depression and anxiety DVT prophylaxis with Lovenox Plan: Admit to observation O2 DuoNeb, Xanax and morphine Started on Levaquin prophylactically Monitor O2 sat, and temperature Monitor CBC IR for thoracentesis in a.m. Solu-Medrol IV 40 every 8 hours Consult oncology patient supposed to see him on Wednesday DVT prophylaxis with Lovenox when done with thoracentesis, hold aspirin for thoracentesis Discussed Condition With Patient in ED physician Jason Nguyen MD February 27, 2018 15:57
[2018-02-27] MEDS: methylPREDNISolone SOD SUCC 40 MG/1 ML VIAL IV PUSH SCH ×2 (16:11→20:16)
[2018-02-27 17:03] VITALS: BP 122/58; PULSE 68; RESP 20; TEMP 97.9; O2SAT 100
[2018-02-27] MEDS ORDERED: LEVOFLOXACIN 750 MG PREMIX INJ 150 ML IV SCH (18:00)
[2018-02-27] MEDS: DOCUSATE SODIUM 50 MG/SENNA 8.6 MG TAB PO SCH (20:16)
--- NOTE | 2018-02-27 20:41 | EKG ---
Date Performed: 02/27/2018 Time Performed: 10:12:04 PTAGE: 72 years EKG: SINUS TACHYCARDIA WITH FREQUENT ECTOPIC PREMATURE COMPLEXES LOW QRS VOLTAGE IN PRECORDIAL L SHALINI ABNORMAL RHYTHM ECG PREVIOUS TRACING : 11/19/2017 09.41 Since the previous tracing, no significant change noted DOCTOR: Ellis Arreguin Interpretating Date/Time 02/27/2018 20:40:03
[2018-02-27 21:02] VITALS: BP 110/61; PULSE 95; RESP 18; TEMP 97.8; O2SAT 97
[2018-02-27] MEDS: ALPRAZolam 0.25 MG TAB PO PRN (22:01)
[2018-02-28 00:50] VITALS: BP 111/66; PULSE 85; RESP 18; TEMP 97.8; O2SAT 97
[2018-02-28 04:05] VITALS: BP 114/63; PULSE 90; RESP 18; TEMP 98.1; O2SAT 98
[2018-02-28] MEDS: methylPREDNISolone SOD SUCC 40 MG/1 ML VIAL IV PUSH SCH (05:18)
[2018-02-28] MEDS ORDERED: LEVOTHYROXINE SODIUM 112 MCG TAB PO SCH (06:00)
[2018-02-28 08:37] VITALS: BP 114/69; PULSE 103; RESP 16; TEMP 97.4; O2SAT 98
--- NOTE | 2018-02-28 08:57 | MB ---
cc: Tyron Shin MD, Khalil MD DATE: 02/28/2018 ATTENDING PHYSICIAN: Dr. Nguyen. REASON FOR CONSULTATION: Oncology consulted to render opinion regarding patient with metastatic breast cancer, admitted with increased shortness of breath. HISTORY OF PRESENT ILLNESS: The patient is a 72-year-old female with a long history of metastatic breast cancer and recurrent malignant pleural effusion who presented to the hospital with a complaint of increased shortness of breath. She has been having shortness of breath off and on for about a year. She has a recurrent pleural effusion and had multiple thoracenteses. She had a right thoracentesis on 01/24 and 02/04 each removing 1400 mL of fluid. She recently started on weekly Taxol and completed a 6 week course. She had a CT done last Wednesday and is supposed to followup with Dr. Gore tomorrow; however, she stated she has worsening shortness of breath and became very weak. She stated the symptoms were similar to her prior symptoms when she had the pleural effusion. She has a mild nonproductive cough. She has no fever or chills. She denies any chest pain. She denies any headache. She denies any nausea, vomiting, abdominal pain, dysuria, or hematuria. She has some muscle ache, but no neuropathy. PAST MEDICAL HISTORY: 1. Metastatic breast cancer. She had metastasis to the skin, eye, liver, bone, and lung. 2. Recurrent malignant pleural effusion. 3. Depression and anxiety. PAST SURGICAL HISTORY: 1. Lumpectomy. 2. Right mastectomy. 3. Right ureteral stent. 4. Multiple thoracentesis. 5. Cataract surgery. 6. Left pleurodesis. FAMILY HISTORY: Mother had colon cancer. SOCIAL HISTORY: Quit tobacco 30 years ago, quit alcohol about 6 years ago. ALLERGIES: NO KNOWN DRUG ALLERGIES. CURRENT MEDICATIONS: 1. Vitamin D3. 2. Synthroid. 3. Camille-Colace. 4. Levaquin. 5. Methylprednisolone. REVIEW OF SYSTEMS: CONSTITUTIONAL: As above. EYES: Negative. ENT: Negative. CARDIOVASCULAR: No chest pressure or palpitation. RESPIRATORY: As above. GASTROINTESTINAL: Negative. GENITOURINARY: Negative. MUSCULOSKELETAL: As above. ENDOCRINE: Negative. HEMATOLOGIC: Negative. DERMATOLOGIC: She has skin nodules on the scalp. PSYCHIATRIC: Negative. NEUROLOGIC: Negative. PHYSICAL EXAMINATION: VITAL SIGNS: Temperature 98.1, blood pressure 114/63, O2 saturation 98%. GENERAL: She is alert, oriented x 3 in no acute distress. She looks cachectic. HEENT: Atraumatic, normocephalic. Pupils equal, round, and reactive to light. Extraocular muscles intact. No scleral icterus. Oropharynx, dry mucosa. No lesion. NECK: No thyromegaly. No palpable mass. LYMPHATIC: No palpable cervical, clavicular, axillary, or inguinal lymph nodes. CARDIOVASCULAR: Regular S1 and S2 normal. LUNGS: Decreased breath sounds bilaterally with no wheezing. ABDOMEN: Soft, nontender. Cannot palpate the liver or spleen. EXTREMITIES: No cyanosis, clubbing or edema. BACK: No paravertebral tenderness. SKIN: No rash or petechia. There were nodules on her scalp. LABORATORY DATA: WBC 3.6, hemoglobin 11.9, platelet count 236, creatinine 0.65. Chest x-ray showed increasing areas of infiltrate in the right lower lung and a left perihilar lung, stable left pleural effusion. ASSESSMENT: 1. Increased shortness of breath. This has been progressively getting worse over the last few weeks. She has history of recurrent malignant pleural effusion and had multiple thoracenteses. She had a thoracentesis on the right side on 02/04 and 01/24 each time removing 1400 mL. On exam, she has decreased breath sounds in the lung bases. Chest x-ray showed a possible infiltrate in the right lower lobe and stable left pleural effusion. I reviewed her CT of the chest done on 02/25/2018 which showed prominent bilateral pleural effusion, which were relatively stable compared to her previous CT scan. There was improved patchy infiltrates in the right upper lung. There is stable infiltrate in left low lung. The pulmonary symptoms are likely due to reaccumulation of the right pleural effusion. I told her we cannot rule out pneumonia. She was started on Levaquin. She is going to go to radiology for possible ultrasound-guided thoracentesis today. If she is stable after thoracentesis, she could be discharged and she has followup with Dr. Gore tomorrow. 2. Metastatic breast cancer. She was first diagnosed with breast cancer in 1991. She later developed metastatic disease. She has exhausted all endocrine therapy. She has developed metastatic disease in the eye, skin, pleura, lung, liver, and bone. She was started on weekly Taxol and has 6 weekly doses so far. She was supposed to have another Taxol tomorrow. 3. Depression/anxiety. 4. Generalized weakness due to underlying metastatic disease. RECOMMENDATIONS: 1. Await evaluation by radiology for possible thoracentesis. 2. Agree with empiric antibiotics. 3. The patient can be discharged if she feels better after thoracentesis and followup with Dr. Gore tomorrow. Thank you, Dr. Nguyen, for asking me to see this patient. MD PAT Garcia/OLE , 08:12 AM , 08:55 AM [email or web address]
[2018-02-28] MEDS ORDERED: CHOLECALCIFEROL (VIT D3) 1000 UNIT TAB PO SCH (09:00)
[2018-02-28] MEDS: DOCUSATE SODIUM 50 MG/SENNA 8.6 MG TAB PO SCH (09:06)
[2018-02-28 09:17] LABS: AUTOMATED NEUTROPHIL # 3.3 TH/MM3 (1.8-7.7); BASOPHIL % 0.3 % (0.0-2.0); HEMATOCRIT 32.3 % (35.0-46.0); HEMOGLOBIN 11.1 GM/DL (11.6-15.3); LYMPH % 8.5 % (9.0-44.0); LYMPHOCYTE # 0.3 TH/MM3 (1.0-4.8); MEAN CELL VOLUME 96.3 FL (80.0-100.0); MEAN CORPUSCULAR HEMOGLOBIN 33.3 PG (27.0-34.0); MEAN CORPUSCULAR HGB CONC 34.5 % (32.0-36.0); MEAN PLATELET VOLUME 8.5 FL (7.0-11.0); MONO % 3.2 % (0.0-8.0); MONOCYTE # 0.1 TH/MM3 (0-0.9); PLATELET COUNT 247 TH/MM3 (150-450); RED BLOOD COUNT 3.35 MIL/MM3 (4.00-5.30); RED CELL DISTRIBUTION WIDTH 22.3 % (11.6-17.2); WHITE BLOOD COUNT 3.7 TH/MM3 (4.0-11.0)
[2018-02-28 09:42] LABS: BICARBONATE 27.6 MEQ/L (21.0-32.0); CALCIUM 8.2 MG/DL (8.5-10.1); CREATININE 0.7 MG/DL (0.50-1.00)
[2018-02-28 09:53] VITALS: BP 112/78; PULSE 96; RESP 18; TEMP 98.2; O2SAT 97
--- NOTE | 2018-02-28 10:31 | PD.RAD ---
Post US Procedure Prog Note Pre Procedure Diagnosis: (1) Recurrent left pleural effusion Post Procedure Diagnosis: (1) Recurrent left pleural effusion Procedure Date: February 28, 2018 Supervising Radiologist: Zoran Sam Anesthesia: Local Plan of Activity Patient to Unit: Other Patient Condition: Fair See PACS Report for procedural detail/treatment Drainage Procedure Procedure 1 Side: Left Procedure Type: Thoracentesis Procedure: Removal Drainage: Suction Fluid Description: Clear, Yellow Zoran Sam MD February 28, 2018 10:31
[2018-02-28] MEDS ORDERED: LIDOCAINE HCL 1% 20 ML VIAL ONE (10:32)
[2018-02-28 11:00] VITALS: BP 99/61; PULSE 93; RESP 18; TEMP 97.6; O2SAT 99
--- NOTE | 2018-02-28 11:04 | RADRPT ---
EXAM DATE/TIME: 02/28/2018 10:37 [place] COMPARISON: CHEST EXPIRATION ONLY, February 04, 2018, 9:12. INDICATIONS : Post right side thoracentesis. MEDICAL HISTORY : breast cancer w/ mets. chemotherapy SURGICAL HISTORY : D&C , Right leg surgery, hernia repair, right kidney stent, mastectomy, port for chemotherapy ENCOUNTER: Initial ACUITY: 2 days PAIN SCORE: 0/10 LOCATION: Bilateral chest FINDINGS: A small left pneumothorax is noted following thoracentesis. Decreased density is seen in the left bas e following evacuation of fluid. There is persistent loculated fluid seen along the left lateral base . Right lung remains well-expanded and clear Heart and mediastinal structures are stable. CONCLUSION: Small left pneumothorax post thoracentesis. Loculated fluid left lung base. Otherwise stable chest. Followup chest radiograph has been ordered. Zoran Sam MD on February 28, 2018 at 10:56 Board Certified Radiologist. This report was verified electronically.
--- NOTE | 2018-02-28 11:11 | RADRPT ---
EXAM DATE/TIME: 02/28/2018 08:27 [facility] COMPARISON: EXTERNAL COMPARISON: US GUIDED THORACENTESIS RIGHT, February 04, 2018, 8:33. [facility], CT CHEST W/ CONTRAST, February 082017, CT CHEST W/ & W/O CONTRAST, February 02, 2018, January 12, 2018, XR CHEST PA & LAT, January 11, 2018, December 27, 2017, October 07, 2017, August 16, 2017, CT CHEST W/O CONTRAST, December 10, 2017. INDICATIONS : Right pleural effusion. MEDICAL HISTORY : Hypothyroidism. Osteoporosis. Carcinoma, breast with mets to liver and bone. Pleural effusion. Cance r in eye. Dyspnea. Anticoagulant therapy, Aspirin. Depression. Anxiety. SURGICAL HISTORY : Tonsillectomy. Mastectomy, right. Right lumpectomy. Hernia repair. Right kidney stent. D&C x3. [place] i n right femur. Chemotherapy. Radiation therapy. Thoracentesis. ENCOUNTER: Subsequent ACUITY: 1 month PAIN SCORE: 3/10 LOCATION: Right chest FLUID: Total volume of 1,500 cc of clear, yellow fluid was removed. Fluid was discarded. Thoracentesis was therapeutic only. Post procedure scanning reveals no hematoma or other complication. TECHNIQUE: 1. Ultrasound guidance for thoracentesis. 2. Thoracentesis. The risks, benefits, and alternatives to ultrasound guided thoracentesis were explained to the patien t in lay simple terms, including the risk of bleeding and infection. Written and verbal informed con sent was obtained. Appropriate area for thoracentesis was marked under ultrasound guidance with the patient in the uprig ht position. Overlying skin was prepped and draped in the usual sterile fashion and with local anest hetic, a dermatotomy was made with an 11 blade scalpel. A 6 [place] thoracentesis catheter was placed in the pleural space and fluid was removed. Catheter was then removed and a sterile dressing applie d. There were no immediate complications. The patient tolerated the procedure well and the left the ultrasound suite in stable condition. Chest radiograph is to be obtained. CONCLUSION: Ultrasound guided thoracentesis completed. Small pneumothorax identified on post thoracentesis chest radiograph. Followup chest ray graft madeline espinosa Sent report Zoran Sam MD on February 28, 2018 at 11:07 Board Certified Radiologist. This report was verified electronically.
[2018-02-28] MEDS ORDERED: HYDR-3516 PO (11:24)
--- NOTE | 2018-02-28 12:25 | HHI.PR ---
Subjective Remarks Follow-up shortness of breath. States she is back to her baseline ambulated in the hallway currently on room air. She wants to go home aware of left pneumothorax after ultrasound-guided thoracentesis. Discussed with radiology, patient will be cleared for discharge pending repeat chest x-ray counseled regarding narcotics Objective Vitals Vital Signs Date Time Temp Pulse Resp B/P (MAP) Pulse Ox O2 Delivery O2 Flow Rate FiO2 02/28/18 11:15 97 Room Air 02/28/18 11:00 97.6 93 18 99/61 (74) 99 02/28/18 11:00 99 Nasal Cannula 3.00 02/28/18 09:53 98.2 96 18 112/78 (89) 97 02/28/18 08:37 97.4 103 16 114/69 (84) 98 02/28/18 04:05 98.1 90 18 114/63 (80) 98 02/28/18 00:50 97.8 85 18 111/66 (81) 97 02/28/18 00:10 Nasal Cannula 3.00 02/27/18 21:02 97.8 95 18 110/61 (77) 97 02/27/18 21:00 Nasal Cannula 3.00 02/27/18 17:03 97.9 68 20 122/58 (79) 100 02/27/18 16:19 100 Nasal Cannula 2.00 02/27/18 15:01 (81) Nasal Cannula 2.00 I/O 02/27/18 02/27/18 02/27/18 02/28/18 02/28/18 02/28/18 07:00 15:00 23:00 07:00 15:00 23:00 Intake Total 150 ml Balance 150 ml Intake IV Total 150 ml # Voids 1 2 # Bowel Movements 2 Result Diagram: 02/28/18 0759 02/28/18 0759 Imaging Last Impressions Thoracentesis Ultrasound 02/28/18 0000 Signed Impressions: Service Date/Time: Wednesday, February 28, 2018 08:27 - CONCLUSION: Ultrasound guided thoracentesis completed. Small pneumothorax identified on post thoracentesis chest radiograph. Followup chest ray graft ordered. Sent report Zoran Sam MD Chest X-Ray 02/28/18 0000 Signed Impressions: Service Date/Time: Wednesday, February 28, 2018 10:37 - CONCLUSION: Small left pneumothorax post thoracentesis. Loculated fluid left lung base. Otherwise stable chest. Followup chest radiograph has been ordered. Zoran Sam MD Objective Remarks GENERAL: This is frail cachectic patient well-developed in no acute distress on RA SKIN: No rashes, warm and dry CARDIOVASCULAR: RRR RESPIRATORY: No wheezes, rales, or rhonchi. Diminished equal breath sounds GASTROINTESTINAL: Abdomen soft, non-tender, nondistended. Positive bowel sounds MUSCULOSKELETAL: Extremities without clubbing, cyanosis, or edema. Pedal pulses appreciated NEUROLOGICAL: Awake and alert. Moves all extremity. Normal speech.no focal neurological deficit Procedures US guided thoracentesis A/P Problem List: (1) Recurrent left pleural effusion ICD Code: J90 - Pleural effusion, not elsewhere classified Assessment and Plan Acute dyspnea with respiratory insufficiency. Improved back to baseline currently on room air. This is secondary to recurrent pleural effusion with history of breast cancer Right lower lobe increasing infiltrate with pleural effusion rule out underlying pneumonia in a patient who is immunocompromised on chemotherapy. Tolerated ultrasound-guided thoracentesis. Continue empiric Levaquin. Repeat chest x-ray in 6 weeks Small left pneumothorax. Patient asymptomatic. Repeat chest x-ray today. Further management per interventional radiology Breast cancer with metastases to the skin liver pleura and lung. Per oncology Leukopenia mostly due to chemo. Monitor Depression and anxiety. Stable DVT prophylaxis with Lovenox Discharge Planning Discharge patient to home pending repeat chest x-ray Condition on discharge: Improved Regular Diet as tolerated Ad Idalia activity no flying Rx written: Lortab and Levaquin Follow-up with primary care physician and oncology Franko Santamaria MD February 28, 2018 12:25
[2018-02-28] MEDS ORDERED: LEVO750T3 PO (12:36)
--- NOTE | 2018-02-28 12:36 | HHI.DCPOC ---
Discharge Care Plan Diagnosis: (1) Recurrent left pleural effusion Your Health Problems Are: Difficulty with ADL Exercise Tolerance Goals to Promote Your Health * To prevent worsening of your condition and complications * To maintain your health at the optimal level Directions to Meet Your Goals Take your medications as prescribed Follow your dietary instruction Follow activity as directed Keep your appointments as scheduled Take your immunizations and boosters as scheduled If your symptoms worsen call your PCP, if no PCP go to Urgent Care Center or Emergency Room Smoking is Dangerous to Your Health. Avoid second hand smoke Call the 24-hour hour crisis hotline for domestic abuse at Franko Santamaria MD February 28, 2018 12:36
[2018-02-28] MEDS ORDERED: LEVOFLOXACIN 750 MG TAB PO SCH (13:00)
[2018-02-28 13:49] VITALS: BP 106/70; PULSE 95; RESP 19; O2SAT 92
--- NOTE | 2018-02-28 14:14 | RADRPT ---
EXAM DATE/TIME: 02/28/2018 12:57 [facility] COMPARISON: CHEST EXPIRATION ONLY, February 28, 2018, 10:37. CHEST SINGLE AP, February 27, 2018, 10:24. INDICATIONS : Post Right side Thoracentesis MEDICAL HISTORY : breast cancer w/ mets. chemotherapy SURGICAL HISTORY : D&C , Right leg surgery, hernia repair, right kidney stent, mastectomy, port for chemotherapy ENCOUNTER: Subsequent ACUITY: 2 days PAIN SCORE: 0/10 LOCATION: Bilateral chest FINDINGS: A single view of the chest demonstrates decrease in size of a small left pneumothorax following thora centesis. Chest is otherwise unchanged. CONCLUSION: Decrease size of small left pneumothorax following thoracentesis. Zoran Sam MD on February 28, 2018 at 14:10 Board Certified Radiologist. This report was verified electronically.
[2018-02-28] MEDS: ALPRAZolam 0.25 MG TAB PO PRN (14:30)
[2018-02-28] MEDS ORDERED: LIDOCAINE HCL 1% 20 ML VIAL SQ ONE (15:27)
== END 2018-02-28 15:28 | disposition home or self-care (01) ==
LOC: NEPE 09:18 → NEDA 12:36 → NEPHCDU 16:19 → HCIS 02-28 10:11
PROVIDERS: ADMIT Internal Medicine; ATTEND Internal Medicine
DX: J96.90 Respiratory failure, unspecified, unspecified whether with hypoxia or hypercapnia (principal); J91.0 Malignant pleural effusion; D72.819 Decreased white blood cell count, unspecified; J93.9 Pneumothorax, unspecified; R00.0 Tachycardia, unspecified; R94.31 Abnormal electrocardiogram [ECG] [EKG]; D84.9 Immunodeficiency, unspecified; C78.7 Secondary malignant neoplasm of liver and intrahepatic bile duct; C79.2 Secondary malignant neoplasm of skin; C79.51 Secondary malignant neoplasm of bone; C79.49 Secondary malignant neoplasm of other parts of nervous system; C78.00 Secondary malignant neoplasm of unspecified lung; R32 Unspecified urinary incontinence; F32.9 Major depressive disorder, single episode, unspecified; F41.9 Anxiety disorder, unspecified; Z85.3 Personal history of malignant neoplasm of breast; Z92.3 Personal history of irradiation; Z87.891 Personal history of nicotine dependence; Z79.899 Other long term (current) drug therapy; Z79.82 Long term (current) use of aspirin
CPT/HCPCS: 32555; 71045; 80048; 80053; 82948; 84484; 85025; 85610; 85730; 93005; 94664; 96365; 96375; 96376; 99285; C1729; G0378; J1956; J2920; J7613

== ENCOUNTER 2018-03-05 12:25 | Inpatient (IN) | payer MEDICARE ==
[2018-03-05] VITALS (10 sets, daily range): BP systolic 88–125; BP diastolic 28–72; PULSE 107–128; RESP 18–26; TEMP 97.9–99.7; O2SAT 76–98
[~2018-03-05] VITALS: Ht 157.5 cm; Wt 48.0 kg
[~2018-03-05 12:25] MED LIST changes: -BIOTCAP PO; -GINS100C PO; +HYDR-3516 PO; +LEVO750T3 PO; +PRED10PA PO
[2018-03-05] MEDS ORDERED: SODIUM CHLORIDE 0.9% FLUSH 10 ML FLUSH IVF PRN (12:45)
--- NOTE | 2018-03-05 12:49 | PD ---
HPI Chief Complaint: Respiratory Symptoms Time Seen by Provider: 12:35 Travel History International Travel<30 days: No Contact w/Intl Traveler<30days: No Traveled to known affect area: No History of Present Illness HPI The patient is a 72-year-old female who presents to the emergency department for shortness of breath. The patient has a history of stage IV metastatic breast cancer with history of recurrent pleural effusions. The patient underwent surgical fixation of the left lung field, however, has recurrent pleural effusions to the right lung. The patient was admitted last weekend and underwent thoracentesis on Wednesday and had a subsequent pneumothorax. The patient was kept overnight subsequently discharged home the next day. However, the patient states her shortness of breath has returned. She does note diffuse wheezing and a chronic nonproductive cough. Symptoms are moderate. She denies any history of pulmonary embolism or DVT. The patient is currently on chemotherapy and is followed by her oncologist, Dr. Gore. She denies any fever. Symptoms are moderate. She does have exertional shortness of breath, denies any orthopnea. PFSH Past Medical History Hx Anticoagulant Therapy: Yes (asa) Blood Disorders: No Anxiety: Yes Depression: Yes Heart Rhythm Problems: No Cancer: Yes (R BREAST, METS TO LIVER AND BONE) Cardiovascular Problems: No High Cholesterol: No Chemotherapy: Yes (CURRENTLY Q WEEK, LAST DOSE 02/22/18) Chest Pain: No Congestive Heart Failure: No Diabetes: No Endocrine: Yes Gastrointestinal Disorders: Yes (DIARRHEA from chemo meds) Genitourinary: Yes (INTERMITTENT INCONTINENCE) Hepatitis: No Immune Disorder: Yes (DUE TO CHEMO) Musculoskeletal: Yes (R LEG) Neurologic: No Psychiatric: Yes Reproductive: No Respiratory: Yes Radiation Therapy: Yes Thyroid Disease: Yes (HYPOTHYROID) Menopausal: Yes Dilation and Curettage (D&C): Yes (X3) Past Surgical History Abdominal Surgery: Yes (hernia) Body Medical Devices: CHALRENE IN RIGHT LEG Ear Surgery: No Endocrine Surgery: No Eye Surgery: No Genitourinary Surgery: Yes (R Kidney Stent) Gynecologic Surgery: No Joint Replacement: No Mastectomy: Yes Oral Surgery: No Tonsillectomy: Yes Other Surgery: Yes Family History Family Hypercholesterolemia: Yes Social History Alcohol Use: No Tobacco Use: No Substance Use: No Allergies-Medications (Allergen,Severity, Reaction): Coded Allergies: No Known Allergies (Unverified , 03/05/18) Reported Meds & Prescriptions Reported Meds & Active Scripts Active Levofloxacin 750 Mg Tablet 750 Mg PO DAILY Hydrocodone-Acetamin 5-325 mg (Hydrocodone/Acetaminophen) 5 Mg-325 Mg Tablet 1 Tab PO Q6HR PRN Reported Prednisone (21) 10 mg tab Dose Pack (Prednisone) 10 Mg Pack 10 Mg PO DIRECTED Zofran (Ondansetron HCl) 4 Mg Tab 4 Mg PO Q6HR PRN Levothyroxine (Levothyroxine Sodium) 112 Mcg Tab 112 Mcg PO DAILY Aspirin DR (Aspirin) 81 Mg Tabdr 81 Mg PO DAILY Alprazolam 0.25 Mg Tab 0.25 Mg PO Q4H PRN Alprazolam 0.5 Mg Tab 0.5 Mg PO HS PRN Vitamin D3 (Cholecalciferol) 2,000 Unit Cap 2,000 Units PO DAILY Multiple Vitamin 1 Tab 1 Tab PO DAILY Calcium Carbonate 500 Mg Calcium (1250 Mg) Tab 1,250 Mg PO BID 1,250 mg calcium carbonate (500 mg elemental calcium) Review of Systems Except as stated in HPI: all other systems reviewed are Neg General / Constitutional: No: Fever, Chills Cardiovascular: Positive: Dyspnea on exertion, No: Chest Pain or Discomfort Respiratory: Positive: Cough, Shortness of Breath, No: Orthopnea Gastrointestinal: No: Nausea, Vomiting, Abdominal Pain Musculoskeletal: No: Edema Physical Exam Narrative GENERAL: Awake, alert, pleasant 72-year-old female who appears her stated age. Thin build. SKIN: Focused skin assessment warm/dry. HEAD: Atraumatic. Normocephalic. EYES: No injection or drainage. ENT: No nasal bleeding or discharge. Mucous membranes pink and moist. NECK: Trachea midline. No JVD. CARDIOVASCULAR: Regular, tachycardic with a heart rate of 115. RESPIRATORY: No accessory muscle use. Diminished breath sounds right base. Diffuse wheezing. GASTROINTESTINAL: Abdomen soft, non-tender, nondistended. MUSCULOSKELETAL: No obvious deformities. No clubbing. No cyanosis. No edema. NEUROLOGICAL: Awake and alert. No obvious cranial nerve deficits. Motor grossly within normal limits. Normal speech. Nonfocal. PSYCHIATRIC: Appropriate mood and affect; insight and judgment normal. Data Data Last Documented VS Vital Signs Date Time Temp Pulse Resp B/P (MAP) Pulse Ox O2 Delivery O2 Flow Rate FiO2 03/05/18 14:46 128 24 110/72 (85) 98 Nasal Cannula 3.00 03/05/18 13:20 98 03/05/18 12:28 97.9 Orders Orders Complete Blood Count With Diff (03/05/18 12:44) Comprehensive Metabolic Panel (03/05/18 12:44) B-Type Natriuretic Peptide (03/05/18 12:44) Magnesium (Mg) (03/05/18 12:44) Ckmb (Isoenzyme) Profile (03/05/18 12:44) Iv Access Insert/Monitor (03/05/18 12:44) Electrocardiogram (03/05/18 12:44) Ecg Monitoring (03/05/18 12:44) Oximetry (03/05/18 12:44) Oxygen Administration (03/05/18 12:44) Chest, Pa & Lat (03/05/18 12:44) Sodium Chloride 0.9% Flush (Ns Flush) (03/05/18 12:45) Albuterol-Ipratropium Neb (Duoneb Neb) (03/05/18 12:45) Cefepime Inj (Maxipime Inj) (03/05/18 13:45) Azithromycin Inj (Zithromax Inj) (03/05/18 13:45) Lactic Acid (03/05/18 13:44) Blood Culture (03/05/18 13:44) Admit Order (Ed Use Only) (03/05/18 15:09) Labs Laboratory Tests Test 03/05/18 12:50 03/05/18 13:50 White Blood Count 5.1 TH/MM3 Red Blood Count 3.58 MIL/MM3 Hemoglobin 12.0 GM/DL Hematocrit 35.3 % Mean Corpuscular Volume 98.5 FL Mean Corpuscular Hemoglobin 33.6 PG Mean Corpuscular Hemoglobin Concent 34.1 % Red Cell Distribution Width 22.6 % Platelet Count 312 TH/MM3 Mean Platelet Volume 8.9 FL Neutrophils (%) (Auto) 92.5 % Lymphocytes (%) (Auto) 5.2 % Monocytes (%) (Auto) 1.9 % Eosinophils (%) (Auto) 0.3 % Basophils (%) (Auto) 0.1 % Neutrophils # (Auto) 4.7 TH/MM3 Lymphocytes # (Auto) 0.3 TH/MM3 Monocytes # (Auto) 0.1 TH/MM3 Eosinophils # (Auto) 0.0 TH/MM3 Basophils # (Auto) 0.0 TH/MM3 CBC Comment DIFF FINAL Differential Comment Blood Urea Nitrogen 14 MG/DL Creatinine 0.71 MG/DL Random Glucose 117 MG/DL Total Protein 5.9 GM/DL Albumin 2.2 GM/DL Calcium Level 7.9 MG/DL Magnesium Level 2.0 MG/DL Alkaline Phosphatase 96 U/L Aspartate Amino Transf (AST/SGOT) 44 U/L Alanine Aminotransferase (ALT/SGPT) 27 U/L Total Bilirubin 1.1 MG/DL Sodium Level 136 MEQ/L Potassium Level 4.3 MEQ/L Chloride Level 99 MEQ/L Carbon Dioxide Level 27.6 MEQ/L Anion Gap 9 MEQ/L Estimat Glomerular Filtration Rate 80 ML/MIN Total Creatine Kinase 61 U/L B-Type Natriuretic Peptide 24 PG/ML Lactic Acid Level 3.4 mmol/L MDM Medical Decision Making Medical Screen Exam Complete: Yes Emergency Medical Condition: Yes Medical Record Reviewed: Yes Interpretation(s) EKG reveals sinus tachycardia with occasional PVC. Heart rate 128. Last Impressions Chest X-Ray 03/05/18 1244 Signed Impressions: CONCLUSION: 1. There are bilateral interstitial and airspace infiltrates in both mid and l ower lung king. These infiltrates have increased compared to the prior study. 2. There continues to be a small to moderate left-sided pleural effusion. The previously noted right effusion has resolved. Laboratory Tests Test 03/05/18 12:50 03/05/18 13:50 White Blood Count 5.1 TH/MM3 Red Blood Count 3.58 MIL/MM3 Hemoglobin 12.0 GM/DL Hematocrit 35.3 % Mean Corpuscular Volume 98.5 FL Mean Corpuscular Hemoglobin 33.6 PG Mean Corpuscular Hemoglobin Concent 34.1 % Red Cell Distribution Width 22.6 % Platelet Count 312 TH/MM3 Mean Platelet Volume 8.9 FL Neutrophils (%) (Auto) 92.5 % Lymphocytes (%) (Auto) 5.2 % Monocytes (%) (Auto) 1.9 % Eosinophils (%) (Auto) 0.3 % Basophils (%) (Auto) 0.1 % Neutrophils # (Auto) 4.7 TH/MM3 Lymphocytes # (Auto) 0.3 TH/MM3 Monocytes # (Auto) 0.1 TH/MM3 Eosinophils # (Auto) 0.0 TH/MM3 Basophils # (Auto) 0.0 TH/MM3 CBC Comment DIFF FINAL Differential Comment Blood Urea Nitrogen 14 MG/DL Creatinine 0.71 MG/DL Random Glucose 117 MG/DL Total Protein 5.9 GM/DL Albumin 2.2 GM/DL Calcium Level 7.9 MG/DL Magnesium Level 2.0 MG/DL Alkaline Phosphatase 96 U/L Aspartate Amino Transf (AST/SGOT) 44 U/L Alanine Aminotransferase (ALT/SGPT) 27 U/L Total Bilirubin 1.1 MG/DL Sodium Level 136 MEQ/L Potassium Level 4.3 MEQ/L Chloride Level 99 MEQ/L Carbon Dioxide Level 27.6 MEQ/L Anion Gap 9 MEQ/L Estimat Glomerular Filtration Rate 80 ML/MIN Total Creatine Kinase 61 U/L B-Type Natriuretic Peptide 24 PG/ML Lactic Acid Level 3.4 mmol/L Differential Diagnosis Differential diagnosis includes pleural effusion, pneumothorax, bronchitis, pneumonia, pulmonary embolism, acute coronary syndrome, COPD exacerbation, malignant pleural effusion. Narrative Course IV was established, labs are drawn and sent, and the patient was placed on cardiac telemetry monitoring and continuous pulse oximetry monitoring. EKG was ordered and interpreted. Chest x-ray was obtained. The patient was administered duo nebs 2. Chest x-ray reveals bilateral pneumonia and small effusion. The patient does have a heart rate greater than 100, respiratory rate in the 20s, hypoxia with an O2 sat on room air of 86%. Therefore, the patient was treated for healthcare acquired pneumonia with cefepime and Zithromax. Blood culture and lactic acid were sent to lab prior to antibiotic administration. The patient does meet SIRS criteria with bilateral pneumonia, tachycardia, tachypnea, and hypoxia. Lactic acid was elevated at 3.4. Therefore, the patient will be admitted as she is immune and is currently on chemotherapy for metastatic breast cancer. Sepsis Criteria SIRS Criteria (2 or more): Heart rate over 90, RR > 20 or PaCO2 < 32 Sepsis Criteria (SIRS+source): Infect source susp/known Criteria Outcome: Meets sepsis criteria Physician Communication Physician Communication [facility] Hospitalist were paged for admission. I discussed the patient with Dr. Combs who agrees with admission. Diagnosis Primary Impression: Bilateral pneumonia Qualified Codes: J18.9 - Pneumonia, unspecified organism Additional Impressions: SIRS (systemic inflammatory response syndrome) Hypoxia Admitting Information Admitting Physician Requests: Admit Condition: Stable Serafin Law MD March 05, 2018 12:49
[2018-03-05] MEDS: RESP: ALBUTEROL 2.5 MG/IPRATROPIUM 0.5 MG NEB (SCH) INH ×2 (13:12→13:13)
[2018-03-05 13:20] LABS: AUTOMATED NEUTROPHIL # 4.7 TH/MM3 (1.8-7.7); BASOPHIL % 0.1 % (0.0-2.0); EOSINOPHIL % 0.3 % (0.0-4.0); HEMATOCRIT 35.3 % (35.0-46.0); LYMPH % 5.2 % (9.0-44.0); LYMPHOCYTE # 0.3 TH/MM3 (1.0-4.8); MEAN CELL VOLUME 98.5 FL (80.0-100.0); MEAN CORPUSCULAR HEMOGLOBIN 33.6 PG (27.0-34.0); MEAN CORPUSCULAR HGB CONC 34.1 % (32.0-36.0); MEAN PLATELET VOLUME 8.9 FL (7.0-11.0); MONO % 1.9 % (0.0-8.0); MONOCYTE # 0.1 TH/MM3 (0-0.9); NEUT % 92.5 % (16.0-70.0); PLATELET COUNT 312 TH/MM3 (150-450); RED BLOOD COUNT 3.58 MIL/MM3 (4.00-5.30); RED CELL DISTRIBUTION WIDTH 22.6 % (11.6-17.2); WHITE BLOOD COUNT 5.1 TH/MM3 (4.0-11.0)
--- NOTE | 2018-03-05 13:23 | RADRPT ---
EXAM DATE: 03/05/2018 1:17 PM EDT AGE/SEX: 72 years / Female INDICATIONS: Shortness of breath. CLINICAL DATA: This is the patient's initial encounter. Patient reports that signs and symptoms have been present for 4 - 6 days and indicates a pain score of 0/10. MEDICAL/SURGICAL HISTORY: Carcinoma, breast. . Hernia repair. Right kidney stent. Mastectiny. I [place] placement. COMPARISON: [facility] [place], CHEST PA & LAT, 12/17/2017. . FINDINGS: Today's exam is compared to the prior study. There is bilateral interstitial and airspace infiltrates in the mid and lower lung king. The previously noted right pleural effusion has essentially resolv ed. There continues to be a small to moderate left-sided pleural effusion. There is no pneumothorax. Heart size is stable. There is a right-sided [id number]-Scae in place. The bony structures are stable. CONCLUSION: 1. There are bilateral interstitial and airspace infiltrates in both mid and lower lung king. Thes e infiltrates have increased compared to the prior study. 2. There continues to be a small to moderate left-sided pleural effusion. The previously noted right effusion has resolved. Electronically signed by: Lonny Valencia MD 03/05/2018 1:22 PM EDT
[2018-03-05 13:39] LABS: ALBUMIN 2.2 GM/DL (3.4-5.0); ALKALINE PHOSPHATASE 96 U/L (45-117); ALT (GPT) 27 U/L (10-53); AST (GOT) 44 U/L (15-37); BICARBONATE 27.6 MEQ/L (21.0-32.0); BLOOD UREA NITROGEN 14 MG/DL (7-18); CALCIUM 7.9 MG/DL (8.5-10.1); CHLORIDE 99 MEQ/L (98-107); CREATININE 0.71 MG/DL (0.50-1.00); GLOMERULAR FILTRATION RATE 80 ML/MIN (>89); GLUCOSE,RANDOM 117 MG/DL (74-106); SODIUM (NA) 136 MEQ/L (136-145); TOTAL BILIRUBIN ADULT 1.1 MG/DL (0.2-1.0); TOTAL PROTEIN 5.9 GM/DL (6.4-8.2)
[2018-03-05] MEDS ORDERED: CEFEPIME INJ 2,000 MG in SODIUM CHLORIDE 0.9% INJ 100 ML IV ONE (13:45)
[2018-03-05] MEDS ORDERED: AZITHROMYCIN INJ 500 MG in SODIUM CHLOR 0.9% 250 ML INJ 250 ML IV ONE (13:45)
[2018-03-05] MEDS ORDERED: NALOXONE HCL 0.4 MG/ML AMP IV PUSH PRN ×2 (15:15→16:30)
[2018-03-05] MEDS ORDERED: SODIUM CHLORIDE 0.9% FLUSH 10 ML FLUSH IV FLUSH PRN ×2 (15:15→16:30)
[2018-03-05] MEDS ORDERED: METOCLOPRAMIDE HCL 10 MG/2 ML VIAL IV PUSH PRN (15:15)
[2018-03-05] MEDS ORDERED: SENNOSIDES 8.6 MG TAB PO PRN (15:15)
[2018-03-05] MEDS ORDERED: LACTULOSE SYRUP 20 GM/30 ML CUP PO PRN (15:15)
[2018-03-05] MEDS ORDERED: RESP: ALBUTEROL 2.5 MG/IPRATROPIUM 0.5 MG NEB (PRN) NEB (15:15)
[2018-03-05] MEDS ORDERED: BISACODYL 10 MG SUPP RECTAL PRN (15:15)
[2018-03-05] MEDS ORDERED: MAGNESIUM HYDROXIDE SUSP 30 ML CUP PO PRN ×2 (15:15→16:30)
[2018-03-05] MEDS ORDERED: CALCTAB94 PO (15:48)
[2018-03-05] MEDS: ENOXAPARIN SODIUM 40 MG/0.4 ML SYRINGE SQ SCH (16:16)
[2018-03-05] MEDS ORDERED: ACETAMINOPHEN/HYDROcodone 325 MG/5 MG TAB PO PRN (16:30)
[2018-03-05] MEDS ORDERED: ACETAMINOPHEN/HYDROcodone 325 MG/10 MG TAB PO PRN (16:30)
[2018-03-05] MEDS ORDERED: ONDANSETRON HCL 4 MG/2 ML VIAL IVP PRN (16:30)
--- NOTE | 2018-03-05 16:40 | HHI.HP ---
[facility] Non-Staff Admission Diagnosis Bilateral pneumonia, hypoxia, sirs Diagnoses: (1) Bilateral pneumonia Diagnosis: Principal (2) Hypoxia Diagnosis: Principal (3) Severe sepsis Diagnosis: Principal Travel History International Travel<30 Days: No Contact w/Intl Traveler <30 Da: No Traveled to Known Affected Are: No Sepsis Criteria SIRS Criteria (2 or more): Heart rate over 90, RR > 20 or PaCO2 < 32 Sepsis Criteria (SIRS+source): Infect source susp/known Severe Sepsis (+one): Lactate >2 History of Present Illness Mrs. Keen is a 72 year old female. She has bilateral breast cancer and is currently under chemotherapy. Her last chemotherapy session was 4 days ago. She says since then she has become progressively short of breath. She has had problems with pleural effusions after treatments before. She came into the emergency department and is found to have bilateral pneumonia. She meets sepsis criteria. Her leukocytosis is not increased but this is likely related to renal compromise. She has not had fevers at home. She has had chills. She has no other complaints at this time. Mild cough is present without significant productivity. Review of Systems Constitutional: COMPLAINS OF: Fatigue, Chills, DENIES: Fever Respiratory: COMPLAINS OF: Cough, Shortness of breath, DENIES: Apneas, Wheezing Cardiovascular: DENIES: Chest pain, Palpitations, Syncope Gastrointestinal: DENIES: Abdominal pain, Black stools, Bloody stools Musculoskeletal: DENIES: Joint pain, Muscle aches, Stiffness Integumentary: DENIES: Abnormal pigmentation, Pruritus, Rash, Nail changes Hematologic/lymphatic: DENIES: Bruising, Lymphadenopathy Immunologic/allergic: DENIES: Eczema, Urticaria Neurologic: DENIES: Abnormal gait, Headache, Paresthesias Psychiatric: DENIES: Anxiety, Confusion, Depression Past Family Social History Past Medical History Breast Cancer Metastatic cancer to liver Metastatic cancer to bone Active Chemotherapy General anxiety disorder Depression Hypothyroidism Past Surgical History Right leg fracture repair Right kidney stent Mastectomy Tonsillectomy Abdominal hernia repair Reported Medications Reported Meds & Active Scripts Active Levofloxacin 750 Mg Tablet 750 Mg PO DAILY Hydrocodone-Acetamin 5-325 mg (Hydrocodone/Acetaminophen) 5 Mg-325 Mg Tablet 1 Tab PO Q6HR PRN Reported Calcium 600 (Calcium Carbonate) 600 Mg Calcium (1500 Mg) Tab 1,200 Mg PO BID Prednisone (21) 10 mg tab Dose Pack (Prednisone) 10 Mg Pack 10 Mg PO DIRECTED Zofran (Ondansetron HCl) 4 Mg Tab 4 Mg PO Q6HR PRN Levothyroxine (Levothyroxine Sodium) 112 Mcg Tab 112 Mcg PO DAILY Aspirin DR (Aspirin) 81 Mg Tabdr 81 Mg PO DAILY Alprazolam 0.25 Mg Tab 0.25 Mg PO Q4H PRN Alprazolam 0.5 Mg Tab 0.5 Mg PO HS PRN Vitamin D3 (Cholecalciferol) 2,000 Unit Cap 2,000 Units PO DAILY Multiple Vitamin 1 Tab 1 Tab PO DAILY Allergies: Coded Allergies: No Known Allergies (Unverified , 03/05/18) Active Ordered Medications Administered Medications Medications (Trade) Dose Ordered Sig/Betty Route PRN Reason Start Time Stop Time Status Last Admin Dose Admin Enoxaparin Sodium (Lovenox Inj) 40 mg Q24H SQ 03/05/18 16:00 03/05/18 16:16 Family History Hyperlipidemia runs in family Social History No history of smoking No history of alcohol abuse No history of illicit drug abuse Physical Exam Vital Signs Vital Signs Date Time Temp Pulse Resp B/P (MAP) Pulse Ox O2 Delivery O2 Flow Rate FiO2 03/05/18 15:45 112 22 116/72 (87) 95 Nasal Cannula 3.00 03/05/18 14:46 128 24 110/72 (85) 98 Nasal Cannula 3.00 03/05/18 13:20 Nasal Cannula 3.50 98 03/05/18 12:47 86 Room Air 03/05/18 12:47 86 Room Air 03/05/18 12:28 97.9 117 26 110/56 (74) 89 Physical Exam GENERAL: NAD, A&Ox3 HEAD: Normocephalic. NECK: Supple, trachea midline. No lymphadenopathy. EYES: No scleral icterus. No injection or drainage. CARDIOVASCULAR: Regular rate and rhythm without murmurs, gallops, or rubs. RESPIRATORY: Breath sounds equal bilaterally. No accessory muscle use. Mild crackles at bases bilaterally. GASTROINTESTINAL: Abdomen soft, non-tender, nondistended. MUSCULOSKELETAL: No cyanosis, or edema. SKIN: Warm and dry. NEURO: No focal neurological deficitis. Laboratory Laboratory Tests Test 03/05/18 12:50 03/05/18 13:50 White Blood Count 5.1 Red Blood Count 3.58 Hemoglobin 12.0 Hematocrit 35.3 Mean Corpuscular Volume 98.5 Mean Corpuscular Hemoglobin 33.6 Mean Corpuscular Hemoglobin Concent 34.1 Red Cell Distribution Width 22.6 Platelet Count 312 Mean Platelet Volume 8.9 Neutrophils (%) (Auto) 92.5 Lymphocytes (%) (Auto) 5.2 Monocytes (%) (Auto) 1.9 Eosinophils (%) (Auto) 0.3 Basophils (%) (Auto) 0.1 Neutrophils # (Auto) 4.7 Lymphocytes # (Auto) 0.3 Monocytes # (Auto) 0.1 Eosinophils # (Auto) 0.0 Basophils # (Auto) 0.0 CBC Comment DIFF FINAL Differential Comment Blood Urea Nitrogen 14 Creatinine 0.71 Random Glucose 117 Total Protein 5.9 Albumin 2.2 Calcium Level 7.9 Magnesium Level 2.0 Alkaline Phosphatase 96 Aspartate Amino Transf (AST/SGOT) 44 Alanine Aminotransferase (ALT/SGPT) 27 Total Bilirubin 1.1 Sodium Level 136 Potassium Level 4.3 Chloride Level 99 Carbon Dioxide Level 27.6 Anion Gap 9 Estimat Glomerular Filtration Rate 80 Total Creatine Kinase 61 B-Type Natriuretic Peptide 24 Lactic Acid Level 3.4 Date/Time Source Procedure Growth Status 03/05/18 14:00 Blood Peripheral Aerobic Blood Culture Pending Received 03/05/18 14:00 Blood Peripheral Anaerobic Blood Culture Pending Received Result Diagram: 03/05/18 1250 03/05/18 1250 Imaging Last Impressions Chest X-Ray 03/05/18 1244 Signed Impressions: CONCLUSION: 1. There are bilateral interstitial and airspace infiltrates in both mid and l ower lung king. These infiltrates have increased compared to the prior study. 2. There continues to be a small to moderate left-sided pleural effusion. The previously noted right effusion has resolved. Septic Shock Reassessment Septic shock perfusion: reassessment completed Caprini VTE Risk Assessment Caprini VTE Risk Assessment: Mod/High Risk (score >= 2) Caprini Risk Assessment Model Point Value = 1 Point Value = 2 Point Value = 3 Point Value = 5 Age 41-60 Minor surgery BMI > 25 kg/m2 Swollen legs Varicose veins or History of unexplained or recurrent spontaneous Oral contraceptives or hormone replacement Sepsis (< 1 month) Serious lung disease, including pneumonia (< 1 month) Abnormal pulmonary function Acute myocardial infarction Congestive heart failure (< 1 month) History of inflammatory bowel disease Medical patient at bed rest Age 61-74 Arthroscopic surgery Major open surgery (> 45 min) Laparoscopic surgery (> 45 min) Malignancy Confined to bed (> 72 hours) Immobilizing plaster cast Central venous access Age >= 75 History of VTE Family history of VTE Factor V Leiden Prothrombin [id number] Lupus anticoagulant Anticardiolipin antibodies Elevated serum homocysteine Heparin-induced thrombocytopenia Other congenital or acquired thrombophilia Stroke (< 1 month) Elective arthroplasty Hip, pelvis, or leg fracture Acute spinal cord injury (< 1 month) Prophylaxis Regimen Total Risk Factor Score Risk Level Prophylaxis Regimen 0-1 Low Early ambulation 2 Moderate Order ONE of the following: *Sequential Compression Device (SCD) *Heparin 5000 units SQ BID 3-4 Higher Order ONE of the following medications: *Heparin 5000 units SQ TID *Enoxaparin/Lovenox 40 mg SQ daily (WT < 150 kg, CrCl > 30 mL/min) *Enoxaparin/Lovenox 30 mg SQ daily (WT < 150 kg, CrCl > 10-29 mL/min) *Enoxaparin/Lovenox 30 mg SQ BID (WT < 150 kg, CrCl > 30 mL/min) AND/OR *Sequential Compression Device (SCD) 5 or more Highest Order ONE of the following medications: *Heparin 5000 units SQ TID (Preferred with Epidurals) *Enoxaparin/Lovenox 40 mg SQ daily (WT < 150 kg, CrCl > 30 mL/min) *Enoxaparin/Lovenox 30 mg SQ daily (WT < 150 kg, CrCl > 10-29 mL/min) *Enoxaparin/Lovenox 30 mg SQ BID (WT < 150 kg, CrCl > 30 mL/min) AND *Sequential Compression Device (SCD) Assessment and Plan Problem List: (1) Severe sepsis ICD Code: A41.9 - Sepsis, unspecified organism; R65.20 - Severe sepsis without septic shock (2) Bilateral pneumonia ICD Code: J18.9 - Pneumonia, unspecified organism Status: Acute (3) Hypoxia ICD Code: R09.02 - Hypoxemia Status: Acute Assessment and Plan 72-year-old female admitted secondary to bilateral pneumonia with immunocompromise and severe sepsis Severe sepsis Tachycardia Tachypnea Lactic acidosis Follow-up lactic acid level Follow on telemetry Oxygen as needed IV hydration Monitor renal function and liver function Monitor vital signs closely Bilateral pneumonia Increased risk in setting of immunocompromise cefepime Azithromycin Follow pulse ox Oxygen as needed Probiotic Bilateral breast cancer Metastatic cancer to bone Metastatic cancer to liver Active chemotherapy Immunocompromise Lack of leukocytosis in this present state is likely related to immunocompromise and chemotherapy treatments on hold for now, during infection treatment General anxiety disorder Depression Hypothyroidism No change to baseline treatments Follow clinically DVT prophylaxis SCDs Lovenox Physician Certification 2 Midnight Certification Type: Admission for Inpatient Services Order for Inpatient Services The services are ordered in accordance with Medicare regulations or non- Medicare payer requirements, as applicable. In the case of services not specified as inpatient-only, they are appropriately provided as inpatient services in accordance with the 2-midnight benchmark. Estimated LOS (days): 3 days is the estimated time the patient will need to remain in the hospital, assuming treatment plan goals are met and no additional complications. Post-Hospital Plan: Home Problem Qualifiers (1) Bilateral pneumonia: Qualified Codes: J18.9 - Pneumonia, unspecified organism Hussein Simpson MD March 05, 2018 16:39
[2018-03-05] MEDS ORDERED: ENOXAPARIN SODIUM 40 MG/0.4 ML SYRINGE SQ SCH (16:45)
[2018-03-05] MEDS: LACTOBACILLUS ACIDOPHILUS TAB PO SCH (19:05)
[2018-03-05] MEDS: SODIUM CHLOR 0.9% 1000 ML INJ 1,000 ML IV SCH (19:05)
[2018-03-05] MEDS: SODIUM CHLORIDE 0.9% FLUSH 10 ML FLUSH IV FLUSH SCH ×2 (20:19)
[2018-03-05] MEDS: DOCUSATE SODIUM 50 MG/SENNA 8.6 MG TAB PO SCH (20:20)
[2018-03-05] MEDS: RESP: ALBUTEROL 2.5 MG/IPRATROPIUM 0.5 MG NEB (SCH) NEB (20:33)
[2018-03-05] MEDS ORDERED: CALCIUM CARBONATE 500 MG CHEWABLE TAB CHEW PRN (21:15)
[2018-03-05] MEDS ORDERED: BENZONATATE 100 MG CAP PO PRN (21:45)
[2018-03-05] MEDS: ALPRAZolam 0.5 MG TAB PO SCH (22:04)
[2018-03-05] MEDS: CEFEPIME INJ 2,000 MG in SODIUM CHLORIDE 0.9% INJ 100 ML IV SCH (22:57)
[2018-03-06] VITALS (11 sets, daily range): BP systolic 102–138; BP diastolic 57–95; PULSE 103–118; RESP 22–28; TEMP 97.7–100.8; O2SAT 92–100
[2018-03-06] MEDS ORDERED: ACETAMINOPHEN 325 MG TAB PO PRN (00:45)
[2018-03-06] MEDS: SODIUM CHLOR 0.9% 1000 ML INJ 1,000 ML IV SCH ×2 (02:20→04:46)
[2018-03-06] MEDS: CEFEPIME INJ 2,000 MG in SODIUM CHLORIDE 0.9% INJ 100 ML IV SCH ×3 (06:26→21:13)
[2018-03-06] MEDS: SODIUM CHLORIDE 0.9% FLUSH 10 ML FLUSH IV FLUSH SCH ×3 (07:44→21:13)
[2018-03-06] MEDS: RESP: ALBUTEROL 2.5 MG/IPRATROPIUM 0.5 MG NEB (SCH) NEB ×5 (08:11→23:39)
--- NOTE | 2018-03-06 08:12 | PD.CONS ---
History of Present Illness Service Infectious disease Consult Requested By Dr Елена Combs Reason for Consult Evaluate patient with pneumonia Primary Care Physician Non-Staff Diagnoses: History of Present Illness Patient seen and examined. Records reviewed. Patient is a 72-year-old female, with known metastatic breast cancer, has metastases to the lungs liver and bone, presented to the hospital with worsening shortness of breath. Patient has had problem with recurrent bilateral pleural effusions, and had a surgical procedure done on the left side with pleurodesis with improvement on her left sided pleural effusion. She continues to have recurrent right-sided pleural effusion, and she gets therapeutic thoracentesis done. The last time it was done was February 28. According to the patient the day after the procedure she started getting short of breath again, and it had progressively worsened. She has had some dry cough. She has not had any nausea or vomiting, denies any urinary complaints. She usually has liquid stool but has a bowel movement at least 1-2 a day. She felt feverish. She presented to the hospital, and her chest x-ray showed bilateral pulmonary infiltrates, and has not shown recurrent effusion on the right side. She was febrile overnight. She was on 10 L of nasal O2, however this morning her sats were in the high 70s, and she is currently on a nonrebreather mask. She has saturation ranging between 89-94. She is complaining of significant worsening of her shortness of breath. Patient lives with the and the has no respiratory problem. She has not been around any pets or any sick children. Infectious disease consultation has been requested to evaluate the patient. Review of Systems Constitutional: COMPLAINS OF: Fever, Weight loss Eyes: DENIES: Eye pain Ears, nose, mouth, throat: DENIES: Nasal discharge, Oral lesions, Throat pain, Ear Pain Respiratory: COMPLAINS OF: Cough, Shortness of breath, DENIES: Sputum production Cardiovascular: COMPLAINS OF: Dyspnea on Exertion, DENIES: Chest pain, Lower Extremity Edema Gastrointestinal: COMPLAINS OF: Diarrhea, DENIES: Abdominal pain, Nausea, Vomiting, Difficulty Swallowing Genitourinary: DENIES: Urinary frequency, Dysuria Musculoskeletal: COMPLAINS OF: Muscle aches, DENIES: Joint pain, Joint Swelling Integumentary: DENIES: Rash Neurologic: DENIES: Localized weakness Psychiatric: DENIES: Hallucinations Past Family Social History Allergies: Coded Allergies: No Known Allergies (Unverified , 03/05/18) Past Medical History Breast Cancer Metastatic cancer to liver Metastatic cancer to bone Active Chemotherapy General anxiety disorder Depression Hypothyroidism Past Surgical History Right leg fracture repair Right kidney stent Mastectomy right, and reconstructive surgery on the right breast Uduaup-[id number] placement Tonsillectomy Abdominal hernia repair Surgery on the left chest for recurrent pleural effusion Multiple thoracenteses Active Ordered Medications Current Medications Medications (Trade) Dose Ordered Sig/Betty Route Start Time Stop Time Status Last Admin (NS Flush) 2 ml UNSCH PRN IV FLUSH 03/05/18 15:15 (NS Flush) 2 ml BID IV FLUSH 03/05/18 21:00 (Reglan Inj) 5 mg Q6H PRN IV PUSH 03/05/18 15:15 (Lovenox Inj) 40 mg Q24H SQ 03/05/18 16:00 03/05/18 16:16 (Narcan Inj) 0.4 mg UNSCH PRN IV PUSH 03/05/18 15:15 (Camille-Colace) 1 tab BID PO 03/05/18 21:00 (Milk Of Magnesia Liq) 30 ml Q12H PRN PO 03/05/18 15:15 (Senokot) 17.2 mg Q12H PRN PO 03/05/18 15:15 (Dulcolax Supp) 10 mg DAILY PRN RECTAL 03/05/18 15:15 (Lactulose Liq) 30 ml DAILY PRN PO 03/05/18 15:15 Cefepime HCl 2000 mg/Sodium Chloride 100 ml @ 200 mls/hr Q8H IV 03/05/18 22:00 03/06/18 06:26 (Zithromax) 500 mg Q24H PO 03/06/18 15:00 (Duoneb Neb) 1 ampule Q6HR WHILE AWAKE NEB NEB 03/05/18 20:00 03/05/18 20:33 (Duoneb Neb) 1 ampule Q4HR NEB PRN NEB 03/05/18 15:15 03/06/18 00:55 Sodium Chloride 1,000 ml @ 100 mls/hr Q10H IV 03/05/18 16:20 03/06/18 04:46 (NS Flush) 2 ml UNSCH PRN IV FLUSH 03/05/18 16:30 (NS Flush) 2 ml BID IV FLUSH 03/05/18 21:00 (Zofran Inj) 4 mg Q6H PRN IVP 03/05/18 16:30 ([place] 5-325 Mg) 1 tab Q4H PRN PO 03/05/18 16:30 ([place] 10-325 Mg) 1 tab Q4H PRN PO 03/05/18 16:30 (Narcan Inj) 0.4 mg UNSCH PRN IV PUSH 03/05/18 16:30 (Milk Of Magnesia Liq) 30 ml Q12H PRN PO 03/05/18 16:30 (Lactinex) 1 tab TID PO 03/05/18 18:00 03/05/18 19:05 (Tums Chew) 500 mg Q2H PRN CHEW 03/05/18 21:15 03/05/18 21:26 (Tessalon) 100 mg TID PRN PO 03/05/18 21:45 03/05/18 22:04 (Xanax) 0.5 mg HS PO 03/05/18 21:45 03/05/18 22:04 (Tylenol) 650 mg Q4H PRN PO 03/06/18 00:45 03/06/18 01:01 Family History Noncontributory Social History No history of smoking No history of alcohol abuse No history of illicit drug abuse Physical Exam Vital Signs Vital Signs Date Time Temp Pulse Resp B/P (MAP) Pulse Ox O2 Delivery O2 Flow Rate FiO2 03/06/18 04:28 98.4 113 23 128/75 (92) 92 03/06/18 03:05 112 03/06/18 02:00 Simple Mask 10.00 03/06/18 01:18 92 Simple Mask 10.00 03/06/18 00:12 115 03/06/18 00:04 100 Non-Rebreather 15.00 03/06/18 00:00 100.8 113 24 111/65 (80) 100 03/05/18 23:57 76 Nasal Cannula 4.00 03/05/18 20:36 93 Nasal Cannula 4.00 03/05/18 20:17 90 Nasal Cannula 4.00 03/05/18 20:11 99.7 107 20 125/66 (85) 90 03/05/18 20:10 114 03/05/18 18:35 99.6 110 18 103/28 (53) 95 88/54 (65) 92/49 (63) 03/05/18 18:05 98 22 112/64 (80) 96 Nasal Cannula 3.00 03/05/18 15:45 112 22 116/72 (87) 95 Nasal Cannula 3.00 03/05/18 14:46 128 24 110/72 (85) 98 Nasal Cannula 3.00 03/05/18 13:20 Nasal Cannula 3.50 98 03/05/18 12:47 86 Room Air 03/05/18 12:47 86 Room Air 03/05/18 12:28 97.9 117 26 110/56 (74) 89 Physical Exam GENERAL: Patient is a thin, well-developed female, awake and alert, in severe respiratory distress, at rest. She is on NRB mask SKIN: Warm and dry. No generalized rash, no ecchymoses and no evidence of embolic lesions. HEAD: Atraumatic. Normocephalic. No temporal wasting, or tenderness. EYES: [place] conjunctiva. No petechia or hemorrhage. Pupils equal, round and reactive to light. Extraocular movements full and intact. No scleral icterus. No injection or drainage. EARS, NOSE AND THROAT: Nose without bleeding or purulent nasal discharge. No sinus tenderness. Mucous membranes pink and moist. No oral lesions noted. No exudate. No oral thrush. NECK: Trachea midline. Supple and not tender, no meningeal signs CARDIOVASCULAR: Regular rate and rhythm. No murmurs, rubs or gallops heard RESPIRATORY: Decreased BS, rales at bases worse on R than L. Port looks ok ABDOMEN: Mildly distended, not tender, bowel sounds present and normoactive. No guarding or rebound. No organomegaly. EXTREMITIES: No clubbing, cyanosis, or edema. No joint effusion, has good ROM. No calf tenderness. Well perfused and warm. NEUROLOGICAL: Awake and alert. Cranial nerves grossly intact. Motor grossly within normal limits. PSYCHIATRIC: Anxious, cooperative. LINE: No evidence of infection Laboratory Laboratory Tests Test 03/05/18 12:50 03/05/18 13:50 03/06/18 00:23 03/06/18 05:56 White Blood Count 5.1 Red Blood Count 3.58 Hemoglobin 12.0 Hematocrit 35.3 Mean Corpuscular Volume 98.5 Mean Corpuscular Hemoglobin 33.6 Mean Corpuscular Hemoglobin Concent 34.1 Red Cell Distribution Width 22.6 Platelet Count 312 Mean Platelet Volume 8.9 Neutrophils (%) (Auto) 92.5 Lymphocytes (%) (Auto) 5.2 Monocytes (%) (Auto) 1.9 Eosinophils (%) (Auto) 0.3 Basophils (%) (Auto) 0.1 Neutrophils # (Auto) 4.7 Lymphocytes # (Auto) 0.3 Monocytes # (Auto) 0.1 Eosinophils # (Auto) 0.0 Basophils # (Auto) 0.0 CBC Comment DIFF FINAL Differential Comment Blood Urea Nitrogen 14 Creatinine 0.71 Random Glucose 117 Total Protein 5.9 Albumin 2.2 Calcium Level 7.9 Magnesium Level 2.0 Alkaline Phosphatase 96 Aspartate Amino Transf (AST/SGOT) 44 Alanine Aminotransferase (ALT/SGPT) 27 Total Bilirubin 1.1 Sodium Level 136 Potassium Level 4.3 Chloride Level 99 Carbon Dioxide Level 27.6 Anion Gap 9 Estimat Glomerular Filtration Rate 80 Total Creatine Kinase 61 B-Type Natriuretic Peptide 24 Lactic Acid Level 3.4 Blood Gas Puncture Site LT BRACHIAL Blood Gas Patient Temperature 98.6 Blood Gas HCO3 26 Blood Gas Base Excess 3.1 Blood Gas Oxygen Saturation 97 Arterial Blood pH 7.51 Arterial Blood Partial Pressure CO2 34 Arterial Blood Partial Pressure O2 156 Arterial Blood Oxygen Content 15.8 Arterial Blood Carboxyhemoglobin 1.4 Arterial Blood Methemoglobin 1.2 Blood Gas Hemoglobin 11.4 Oxygen Delivery Device NRB Blood Gas Liter Flow 15 Blood Gas Inspired Oxygen 100 Date/Time Source Procedure Growth Status 03/05/18 14:00 Blood Peripheral Aerobic Blood Culture Pending Received 03/05/18 14:00 Blood Peripheral Anaerobic Blood Culture Pending Received Result Diagram: 03/05/18 1250 03/05/18 1250 Imaging RADIOLOGY STUDIES/FILMS REVIEWED Last Impressions Chest X-Ray 03/05/18 1244 Signed Impressions: CONCLUSION: 1. There are bilateral interstitial and airspace infiltrates in both mid and l ower lung king. These infiltrates have increased compared to the prior study. 2. There continues to be a small to moderate left-sided pleural effusion. The previously noted right effusion has resolved. Assessment and Plan Assessment and Plan IMPRESSION [place] infiltrates Respiratory failure Metastatic breast CA (lungs, liver, bone), on chemo Cachexia RECOMMENDATION CXR Needs to address code status May need BIPAP to maintain oxygenation Continue Cefepime Continue Zithromax Add Vancomycin Follow C/S Monitor progress I will follow along with you Thank you for this consultation Discussed Condition With Explained plan to patient and D/W Dr Fontaine (HEPAS) Orin Viramontes MD March 06, 2018 08:12
--- NOTE | 2018-03-06 08:44 | HHI.PR ---
Subjective Remarks tachypneic and short of breath requring 100% NRB anxious per - not on 02 at home stat CXR shows near opacification of the right lower base to mid history of thoracentesis last admission 02/28 Objective Vitals Vital Signs Date Time Temp Pulse Resp B/P (MAP) Pulse Ox O2 Delivery O2 Flow Rate FiO2 03/06/18 08:25 98 Non-Rebreather 15.00 03/06/18 04:28 98.4 113 23 128/75 (92) 92 03/06/18 03:05 112 03/06/18 02:00 Simple Mask 10.00 03/06/18 01:18 92 Simple Mask 10.00 03/06/18 00:12 115 03/06/18 00:04 100 Non-Rebreather 15.00 03/06/18 00:00 100.8 113 24 111/65 (80) 100 03/05/18 23:57 76 Nasal Cannula 4.00 03/05/18 20:36 93 Nasal Cannula 4.00 03/05/18 20:17 90 Nasal Cannula 4.00 03/05/18 20:11 99.7 107 20 125/66 (85) 90 03/05/18 20:10 114 03/05/18 18:35 99.6 110 18 103/28 (53) 95 88/54 (65) 92/49 (63) 03/05/18 18:05 98 22 112/64 (80) 96 Nasal Cannula 3.00 03/05/18 15:45 112 22 116/72 (87) 95 Nasal Cannula 3.00 03/05/18 14:46 128 24 110/72 (85) 98 Nasal Cannula 3.00 03/05/18 13:20 Nasal Cannula 3.50 98 03/05/18 12:47 86 Room Air 03/05/18 12:47 86 Room Air 03/05/18 12:28 97.9 117 26 110/56 (74) 89 I/O 03/05/18 03/05/18 03/05/18 03/06/18 03/06/18 03/06/18 07:00 15:00 23:00 07:00 15:00 23:00 Intake Total 350 ml 120 ml Output Total 500 ml 500 ml Balance -150 ml -380 ml Intake Oral 120 ml IV Total 350 ml Output Urine Total 500 ml 500 ml # Voids 1 Result Diagram: 03/05/18 1250 03/05/18 1250 Imaging Last Impressions Chest X-Ray 03/05/18 1244 Signed Impressions: CONCLUSION: 1. There are bilateral interstitial and airspace infiltrates in both mid and l ower lung king. These infiltrates have increased compared to the prior study. 2. There continues to be a small to moderate left-sided pleural effusion. The previously noted right effusion has resolved. Objective Remarks awake and alert, tachypneic, tachycardic anicteric on 100% NRB anicteric decrease breath sounds, tight, some inspiratory wheezes tachycardic abdomen soft, nontender extremities no edema A/P Problem List: (1) Severe sepsis ICD Code: A41.9 - Sepsis, unspecified organism; R65.20 - Severe sepsis without septic shock (2) Bilateral pneumonia ICD Code: J18.9 - Pneumonia, unspecified organism Status: Acute (3) Hypoxia ICD Code: R09.02 - Hypoxemia Status: Acute Assessment and Plan 72 years old female Acute respiratory failure secondary to PNA worsening infiltrates + recurrent effusion-right rapidly accumulating - history of right thoracentesis- 02/28 - repeat CXR worsening rapidly infiltrates with increase effusion right, right LF- near opacification , loculated effusion left - film reviewed - transfer to [facility] - start IV Solumedrol . continue duoneb treatments - consult lockstitch sleeve maker service- spoke with Dr. Feldman - need for thoracentesis - ID ff- on antibiotics Metastatic breast CA - Oncology ff discuss code status with her- states "I don't want to but I don't want to be in a machine either" -Palliative care consult d/w and hsuband d/w Dr. Feldman- consult on Lovenox- hold for possible thoracentesis GI prophylaxis - Problem Qualifiers (1) Bilateral pneumonia: Qualified Codes: J18.9 - Pneumonia, unspecified organism Davon Fontaine MD March 06, 2018 08:43
--- NOTE | 2018-03-06 08:49 | RADRPT ---
EXAM DATE: 03/06/2018 8:43 AM EDT AGE/SEX: 72 years / Female INDICATIONS: Dyspnea. CLINICAL DATA: This is the patient's subsequent encounter. Patient reports that signs and symptoms h ave been present for 2 days and indicates a pain score of 0/10. MEDICAL/SURGICAL HISTORY: . Carcinoma, breast. . Hernia repair. Right kidney stent. Mastectiny . Infusaport placement. COMPARISON: [facility] – [place] [place] [facility] [place], 03/05/2018. . FINDINGS: There continues to be bilateral pulmonary infiltrates without significant change in their overall dis tribution compared to the prior study. Continues to be a loculated left-sided effusion which is stabl e. No evidence of pneumothorax. The heart size is stable. The right-sided central line remains in edwina ce. CONCLUSION: No significant interval change with the bilateral pulmonary infiltrates. Electronically signed by: Lonny Valencia MD 03/06/2018 8:48 AM EDT
[2018-03-06] MEDS: DOCUSATE SODIUM 50 MG/SENNA 8.6 MG TAB PO SCH ×2 (09:00→21:12)
[2018-03-06] MEDS ORDERED: ALPRAZolam 0.5 MG TAB PO ONE (09:15)
[2018-03-06] MEDS: methylPREDNISolone SOD SUCC 40 MG/1 ML VIAL IV PUSH SCH ×3 (09:17→21:13)
--- NOTE | 2018-03-06 10:54 | PD.CONS ---
History of Present Illness Service Hematology/oncology. Consult Requested By Intensive care service. Reason for Consult Metastatic breast carcinoma. Reaccumulating malignant pleural effusions. Primary Care Physician Non-Staff Diagnoses: History of Present Illness Chief Complaint: Increasing difficulty breathing over the past 3 days. History of Presenting Illness: Ms. Keen is a 72-year-old female with a diagnosis of metastatic breast carcinoma, she is under the care of my associate Dr. Joseph Gore who has been treating her with weekly doses of Taxol. The patient has known metastatic disease to her liver, bones and pleura. Her disease has been complicated by reaccumulating bilateral pleural effusions and since July 2017 she has undergone multiple ultrasound-guided thoracentesis of both the left and the right side. The patient underwent pleurodesis of the left hemithorax recently. She underwent her most recent right-sided thoracentesis on 03/03/2018 (less than 1 week ago). On the morning of 03/05/2018 the patient became increasingly short of breath and was unable to get out of bed due to shortness of breath. She was brought into the emergency department and underwent a chest x-ray which revealed bilateral interstitial airspace infiltrates as well as moderate pleural effusions on the right and the left side. The patient was initiated on broad-spectrum antibiotic coverage for management of what is assessed to be sepsis related to pneumonia; cefepime, azithromycin And has also been initiated on corticosteroids. This morning just prior to my encounter with the patient she underwent placement of a pigtail catheter in the right hemithorax, she immediately drained 1200 cc of straw-colored clear liquid and experienced improvement in her dyspnea. Review of Systems Constitutional: COMPLAINS OF: Fatigue, Fever (Chills), Weight loss, Chills, Dizziness, Change in appetite (Decreased appetite), DENIES: Diaphoretic episodes , Weight gain Endocrine: COMPLAINS OF: Heat/cold intolerance, DENIES: Abnorml menstrual pattern, Polydipsia, Polyuria, Polyphagia Eyes: DENIES: Blurred vision, Diplopia, Eye inflammation, Eye pain, Vision loss , Photosensitivity, Double Vision Ears, nose, mouth, throat: DENIES: Tinnitus, Hearing loss, Vertigo, Nasal discharge, Oral lesions, Throat pain, Hoarseness, Ear Pain, Running Nose, Epistaxis, Sinus Pain, Toothache, Odynophagia Respiratory: COMPLAINS OF: Cough, Sputum production, Shortness of breath, DENIES: Apneas, Snoring, Wheezing, Hemoptysis (Is) Cardiovascular: COMPLAINS OF: Palpitations, Dyspnea on Exertion, DENIES: Chest pain, Syncope, PND, Lower Extremity Edema, Orthopnea, Claudication ( is) Gastrointestinal: COMPLAINS OF: Anorexia, DENIES: Abdominal pain, Black stools , Bloody stools, Constipation, Diarrhea, Nausea, Vomiting, Difficulty Swallowing Genitourinary: DENIES: Abnormal vaginal bleeding, Dysmenorrhea, Dyspareunia, Sexual dysfunction, Urinary frequency, Urinary incontinence, Urgency, Hematuria , Dysuria, Nocturia, Vaginal discharge Musculoskeletal: COMPLAINS OF: Joint pain, Muscle aches, Stiffness, Back pain, DENIES: Joint Swelling, Neck pain Integumentary: DENIES: Abnormal pigmentation, Pruritus, Rash, Nail changes, Breast masses, Breast skin changes, Nipple discharge Hematologic/lymphatic: DENIES: Bruising, Lymphadenopathy Immunologic/allergic: DENIES: Eczema, Urticaria Neurologic: DENIES: Abnormal gait, Headache, Localized weakness, Paresthesias, Seizures, Speech Problems, Tremor, Poor Balance Psychiatric: COMPLAINS OF: Anxiety, Confusion, Depression, DENIES: Mood changes , Hallucinations, Agitation, Suicidal Ideation, Homicidal Ideation, Delusions Except as stated in HPI: all other systems reviewed are Neg Past Family Social History Allergies: Coded Allergies: No Known Allergies (Unverified , 03/05/18) Past Medical History Metastatic breast carcinoma Osteoarthritis Bony metastases Liver metastases Recurrent malignant pleural effusions Cataracts obstructive uropathy. Past Surgical History Mastectomy in October 2012. Breast biopsy Axillary lymph node biopsy Port-A-Cath placement Hernia repair Colonoscopy Cataract surgery ORIF of right femur fracture. Active Ordered Medications Azithromycin 500 mg p.o. every 24 hours Cefepime 2 g IV every 8 hours Normal saline 100 cc/h Hydrocodone/acetaminophen 10/325 1 tablet p.o. every 4 hours needed for pain Duo nebs 1 amp every 6 hours [id number]. Alprazolam 0.5 mg p.o. nightly as needed for sleep Tessalon Perles 100 mg p.o. 3 times daily as needed for cough Calcium carbonate 500 mg p.o. every 2 hours as needed for indigestion Camille-Colace 1 tablet p.o. twice daily Lovenox 40 mg subcu daily Methylprednisolone 40 mg IV every 6 hours Lactulose 30 mL p.o. daily as needed for constipation Metoclopramide 5 mg IV every 6 hours needed for nausea and vomiting Zofran 4 mg IV every 6 hours needed for vomiting/nausea Family History Parents both , no known oncologic diagnoses in the family. Social History Patient lives at home with her , she is originally from [place]. She has a son and a daughter both adults. She previously was a smoker, she smoked about half a pack a day for 10 years but quit 30 years ago. She occasionally drinks alcohol. Physical Exam Vital Signs Vital Signs Date Time Temp Pulse Resp B/P (MAP) Pulse Ox O2 Delivery O2 Flow Rate FiO2 03/06/18 08:40 97.7 117 28 138/87 (104) 98 03/06/18 08:40 Non-Rebreather 15.00 03/06/18 08:25 98 Non-Rebreather 15.00 03/06/18 04:28 98.4 113 23 128/75 (92) 92 03/06/18 03:05 112 03/06/18 02:00 Simple Mask 10.00 03/06/18 01:18 92 Simple Mask 10.00 03/06/18 00:12 115 03/06/18 00:04 100 Non-Rebreather 15.00 03/06/18 00:00 100.8 113 24 111/65 (80) 100 03/05/18 23:57 76 Nasal Cannula 4.00 03/05/18 20:36 93 Nasal Cannula 4.00 03/05/18 20:17 90 Nasal Cannula 4.00 03/05/18 20:11 99.7 107 20 125/66 (85) 90 03/05/18 20:10 114 03/05/18 18:35 99.6 110 18 103/28 (53) 95 88/54 (65) 92/49 (63) 03/05/18 18:05 98 22 112/64 (80) 96 Nasal Cannula 3.00 03/05/18 15:45 112 22 116/72 (87) 95 Nasal Cannula 3.00 03/05/18 14:46 128 24 110/72 (85) 98 Nasal Cannula 3.00 03/05/18 13:20 Nasal Cannula 3.50 98 03/05/18 12:47 86 Room Air 03/05/18 12:47 86 Room Air 03/05/18 12:28 97.9 117 26 110/56 (61) 89 Physical Exam GENERAL: Elderly, frail and cachectic appearing female, laying in bed, she is on a facemask (nonrebreather) she is able to speak to me in broken sentences. She appears to be in moderate respiratory distress. SKIN: No rashes, ecchymoses or lesions. Cool and dry. HEAD: Atraumatic. Normocephalic. No temporal or scalp tenderness. EYES: Pupils equal round and reactive. Extraocular motions intact. No scleral icterus. No injection or drainage. ENT: Nose without bleeding, purulent drainage or septal hematoma. Throat without erythema, tonsillar hypertrophy or exudate. Uvula midline. Airway patent. NECK: Trachea midline. No JVD or lymphadenopathy. Supple, nontender, no meningeal signs. CARDIOVASCULAR: Tachycardic, regular rhythm, S1-S2 no obvious murmurs rubs gallops. RESPIRATORY: abnormal breath sounds, decreased bibasilar breath sounds. Scattered crepitus on inspiration. No obvious rhonchi or wheezes. GASTROINTESTINAL: Thin, cachectic abdomen, abdomen soft, non-tender, nondistended. No hepato-splenomegaly, or palpable masses. No guarding. MUSCULOSKELETAL: Generally decreased/atrophic muscle mass, extremities without clubbing, cyanosis, or edema. No joint tenderness, effusion, or edema noted. No calf tenderness. Negative Homans sign bilaterally. NEUROLOGICAL: Awake and alert. Cranial nerves II through XII intact. Motor and sensory grossly within normal limits. Generally decreased motor strength in the upper and lower extremities. But no obvious deficits. Laboratory Laboratory Tests Test 03/05/18 12:50 03/05/18 13:50 03/06/18 00:23 03/06/18 05:56 White Blood Count 5.1 Red Blood Count 3.58 Hemoglobin 12.0 Hematocrit 35.3 Mean Corpuscular Volume 98.5 Mean Corpuscular Hemoglobin 33.6 Mean Corpuscular Hemoglobin Concent 34.1 Red Cell Distribution Width 22.6 Platelet Count 312 Mean Platelet Volume 8.9 Neutrophils (%) (Auto) 92.5 Lymphocytes (%) (Auto) 5.2 Monocytes (%) (Auto) 1.9 Eosinophils (%) (Auto) 0.3 Basophils (%) (Auto) 0.1 Neutrophils # (Auto) 4.7 Lymphocytes # (Auto) 0.3 Monocytes # (Auto) 0.1 Eosinophils # (Auto) 0.0 Basophils # (Auto) 0.0 CBC Comment DIFF FINAL Differential Comment Blood Urea Nitrogen 14 Creatinine 0.71 Random Glucose 117 Total Protein 5.9 Albumin 2.2 Calcium Level 7.9 Magnesium Level 2.0 Alkaline Phosphatase 96 Aspartate Amino Transf (AST/SGOT) 44 Alanine Aminotransferase (ALT/SGPT) 27 Total Bilirubin 1.1 Sodium Level 136 Potassium Level 4.3 Chloride Level 99 Carbon Dioxide Level 27.6 Anion Gap 9 Estimat Glomerular Filtration Rate 80 Total Creatine Kinase 61 B-Type Natriuretic Peptide 24 Lactic Acid Level 3.4 Blood Gas Puncture Site LT BRACHIAL Blood Gas Patient Temperature 98.6 Blood Gas HCO3 26 Blood Gas Base Excess 3.1 Blood Gas Oxygen Saturation 97 Arterial Blood pH 7.51 Arterial Blood Partial Pressure CO2 34 Arterial Blood Partial Pressure O2 156 Arterial Blood Oxygen Content 15.8 Arterial Blood Carboxyhemoglobin 1.4 Arterial Blood Methemoglobin 1.2 Blood Gas Hemoglobin 11.4 Oxygen Delivery Device NRB Blood Gas Liter Flow 15 Blood Gas Inspired Oxygen 100 Date/Time Source Procedure Growth Status 03/05/18 14:00 Blood Peripheral Aerobic Blood Culture Pending Received 03/05/18 14:00 Blood Peripheral Anaerobic Blood Culture Pending Received Result Diagram: 03/05/18 1250 03/05/18 1250 Imaging Chest x-ray dated 03/06/2018: No significant interval changes with bilateral pulmonary infiltrates and pleural effusions. Assessment and Plan Assessment and Plan 72-year-old female with a diagnosis of metastatic breast carcinoma, her disease is estrogen and progesterone receptor positive and HER-2 negative, she has known liver, bone and pleural metastases. She has been previously treated with palliative endocrine therapy with anastrozole, followed by Ibrance plus endocrine therapy, which he progressed on this she was initiated on Taxol and weekly basis. She had received her seventh weekly dose last week. The patient' s major issue has been that of reaccumulating pleural effusions with resultant difficulty breathing. She has been admitted previously to this facility with progressive difficulty breathing and has required emergency thoracentesis. Over the past 8 months or so she has required multiple therapeutic thoracentesis involving both the right and the left side and in fact underwent a left-sided pleurodesis several weeks ago. Her most recent therapeutic thoracentesis on the right side was performed about 6 days ago, she had temporary relief in her symptoms but became increasingly short of breath a little over 24 hours ago. She presented to [facility] emergency department on 03/05/2018 and was admitted under the hospitalist service , overnight she became increasingly short of breath despite antibiotic therapy and nebulizer treatments. She was transferred to the critical care unit and was evaluated by the seismograph computer, ultrasound studies were performed on her chest and she was assessed to have a significant pleural effusion on the right side. Earlier this morning she underwent ultrasound-guided placement of a pigtail catheter in the right hemithorax. 1200 cc of clear serous fluid was immediately evacuated. The patient's respiratory status did improve after this. Plan: 1. Metastatic breast carcinoma: Presently on palliative systemic therapy with weekly Taxol under the care of Dr. Joseph Gore. He will return tomorrow to assume care and to guide additional decision making. The patient does have bilateral pulmonary infiltrates consistent with pneumonia versus lymphangitic progression of disease. Given her precarious respiratory status questions regarding advanced directives need to be addressed. The patient at present has indicated she would like to be a full code, though she does not wish to remain intubated for prolonged period time. Systemic therapy will be on hold until her acute issues resolve. I did explain that to the patient and her and they seem to understand. She has been on chemotherapy, her blood counts however remain within normal limits specifically she has no evidence of neutropenia, thrombus cytopenia or anemia at this time. Continue ongoing care. I appreciate the assistance of the critical care service and infectious diseases service. Tino Moreau MD March 06, 2018 10:54
--- NOTE | 2018-03-06 11:01 | RADRPT ---
EXAM DATE: 03/06/2018 10:58 AM EDT AGE/SEX: 72 years / Female INDICATIONS: Post right thoracentesis CLINICAL DATA: This is the patient's subsequent encounter. Patient reports that signs and symptoms h ave been present for 2 days and indicates a pain score of 0/10. MEDICAL/SURGICAL HISTORY: Carcinoma, breast. . Hernia repair. Right kidney stent. Mastectiny. I nfusaport placement. COMPARISON: [facility] [place], CHEST SINGLE AP, 03/06/2018. . FINDINGS: Status post right thoracentesis. No evidence of pneumothorax. Continue to be infiltrates throughout t he right mid to right lower lung. The left hemithorax is stable in appearance compared to the prior e xam. CONCLUSION: Status post right thoracentesis. No pneumothorax. Electronically signed by: Lonny Valencia MD 03/06/2018 11:00 AM EDT
[2018-03-06 11:44] LABS: HEMATOCRIT 31.7 % (35.0-46.0); HEMOGLOBIN 11.6 GM/DL (11.6-15.3); MEAN CELL VOLUME 96.8 FL (80.0-100.0); MEAN CORPUSCULAR HEMOGLOBIN 35.4 PG (27.0-34.0); MEAN PLATELET VOLUME 8.2 FL (7.0-11.0); PLATELET COUNT 249 TH/MM3 (150-450); RED BLOOD COUNT 3.28 MIL/MM3 (4.00-5.30); RED CELL DISTRIBUTION WIDTH 22.5 % (11.6-17.2); WHITE BLOOD COUNT 5.1 TH/MM3 (4.0-11.0)
--- NOTE | 2018-03-06 11:45 | PD.CONS ---
[facility] Service Critical Care Medicine Consult Requested By Primary Care Physician Non-Staff History of Present Illness History of Present Illness Mrs. Keen is a 72 year old female. She has bilateral breast cancer and is currently under chemotherapy. Her last chemotherapy session was 4 days ago. She says since then she has become progressively short of breath. She has had problems with pleural effusions after treatments before. She came into the emergency department and is found to have bilateral pneumonia. She met sepsis criteria. Patient had been having chills at home however no fever. She was admitted by hospitalist service and was evaluated by ID suspected pneumonia and initiated on empiric antibiotic coverage including cefepime and Zithromax. Patient has had previous thoracentesis done by interventional radiology and she underwent the pleurodesis on the left side recently. Patient has had 7 cycles of chemotherapy and is followed by Dr. Gore Patient was transferred to the ICU on 03/06 due to worsening respiratory status with increasing O2 requirement after being placed on a nonrebreather facemask for dropping O2 sats. Critical care consult was requested by Dr. Fontaine. I evaluated the patient immediately on arrival to the ICU. At that time she was breathing in the 30s on a nonrebreather facemask with O2 sats in the mid 90s using accessory muscles of respiration. Chest x-ray done this morning revealed bilateral infiltrates and effusions. I spoke with the patient and her at bedside and she told me she would not want to be on mechanical ventilation long-term. I performed a bedside ultrasound which revealed significant right pleural effusion and patient and agreed to proceed with pigtail catheter placement to attempt drainage. A right-sided pigtail catheter was placed with ultrasound guidance with removal of about 1200 cc of straw-colored pleural fluid which patient tolerated well with about 50% improvement in her breathing. ROS - General Review of Systems Constitutional: COMPLAINS OF: Fatigue, Chills, DENIES: Fever Respiratory: COMPLAINS OF: Cough, Shortness of breath, DENIES: Apneas, Wheezing Cardiovascular: DENIES: Chest pain, Palpitations, Syncope Gastrointestinal: DENIES: Abdominal pain, Black stools, Bloody stools Musculoskeletal: DENIES: Joint pain, Muscle aches, Stiffness Integumentary: DENIES: Abnormal pigmentation, Pruritus, Rash, Nail changes Hematologic/lymphatic: DENIES: Bruising, Lymphadenopathy Immunologic/allergic: DENIES: Eczema, Urticaria Neurologic: DENIES: Abnormal gait, Headache, Paresthesias Psychiatric: DENIES: Anxiety, Confusion, Depression PFSH Past Family Social History Past Medical History Breast Cancer Metastatic cancer to liver Metastatic cancer to bone Active Chemotherapy General anxiety disorder Depression Hypothyroidism Past Surgical History Right leg fracture repair Right kidney stent Mastectomy Tonsillectomy Abdominal hernia repair Reported Medications Reported Meds & Active Scripts Active Levofloxacin 750 Mg Tablet 750 Mg PO DAILY Hydrocodone-Acetamin 5-325 mg (Hydrocodone/Acetaminophen) 5 Mg-325 Mg Tablet 1 Tab PO Q6HR PRN Reported Calcium 600 (Calcium Carbonate) 600 Mg Calcium (1500 Mg) Tab 1,200 Mg PO BID Prednisone (21) 10 mg tab Dose Pack (Prednisone) 10 Mg Pack 10 Mg PO DIRECTED Zofran (Ondansetron HCl) 4 Mg Tab 4 Mg PO Q6HR PRN Levothyroxine (Levothyroxine Sodium) 112 Mcg Tab 112 Mcg PO DAILY Aspirin DR (Aspirin) 81 Mg Tabdr 81 Mg PO DAILY Alprazolam 0.25 Mg Tab 0.25 Mg PO Q4H PRN Alprazolam 0.5 Mg Tab 0.5 Mg PO HS PRN Vitamin D3 (Cholecalciferol) 2,000 Unit Cap 2,000 Units PO DAILY Multiple Vitamin 1 Tab 1 Tab PO DAILY Allergies: Coded Allergies: No Known Allergies (Unverified , 03/05/18) Administered Medications Medications (Trade) Dose Ordered Sig/Betty Route PRN Reason Start Time Stop Time Status Last Admin Dose Admin Enoxaparin Sodium (Lovenox Inj) 40 mg Q24H SQ 03/05/18 16:00 03/05/18 16:16 Cefepime HCl 2000 mg/Sodium Chloride 100 ml @ 200 mls/hr Q8H IV 03/05/18 22:00 03/06/18 06:26 Albuterol/ Ipratropium (Duoneb Neb) 1 ampule Q4HR NEB PRN NEB SOB/WHEEZING 03/05/18 15:15 03/06/18 00:55 Lactobacillus Acidophilus (Lactinex) 1 tab TID PO 03/05/18 18:00 03/05/18 19:05 Calcium Carbonate (Tums Chew) 500 mg Q2H PRN CHEW indigestion 03/05/18 21:15 03/05/18 21:26 Benzonatate (Tessalon) 100 mg TID PRN PO cough 03/05/18 21:45 03/05/18 22:04 Alprazolam (Xanax) 0.5 mg HS PO 03/05/18 21:45 03/05/18 22:04 Acetaminophen (Tylenol) 650 mg Q4H PRN PO fever 03/06/18 00:45 03/06/18 01:01 Methylprednisolone Sodium Succinate (SoluMEDROL INJ) 40 mg Q6H IV PUSH 03/06/18 09:00 03/06/18 09:17 Family History Hyperlipidemia runs in family Social History No history of smoking No history of alcohol abuse No history of illicit drug abuse Past Family Social History Allergies: Coded Allergies: No Known Allergies (Unverified , 03/05/18) Physical Exam Vital Signs Vital Signs Date Time Temp Pulse Resp B/P (MAP) Pulse Ox O2 Delivery O2 Flow Rate FiO2 03/06/18 08:40 97.7 117 28 138/87 (104) 98 03/06/18 08:40 Non-Rebreather 15.00 03/06/18 08:25 98 Non-Rebreather 15.00 03/06/18 04:28 98.4 113 23 128/75 (92) 92 03/06/18 03:05 112 03/06/18 02:00 Simple Mask 10.00 03/06/18 01:18 92 Simple Mask 10.00 03/06/18 00:12 115 03/06/18 00:04 100 Non-Rebreather 15.00 03/06/18 00:00 100.8 113 24 111/65 (80) 100 03/05/18 23:57 76 Nasal Cannula 4.00 03/05/18 20:36 93 Nasal Cannula 4.00 03/05/18 20:17 90 Nasal Cannula 4.00 03/05/18 20:11 99.7 107 20 125/66 (85) 90 03/05/18 20:10 114 03/05/18 18:35 99.6 110 18 103/28 (53) 95 88/54 (65) 92/49 (63) 03/05/18 18:05 98 22 112/64 (80) 96 Nasal Cannula 3.00 03/05/18 15:45 112 22 116/72 (87) 95 Nasal Cannula 3.00 03/05/18 14:46 128 24 110/72 (85) 98 Nasal Cannula 3.00 03/05/18 13:20 Nasal Cannula 3.50 98 03/05/18 12:47 86 Room Air 03/05/18 12:47 86 Room Air 03/05/18 12:28 97.9 117 26 110/56 (74) 89 Physical Exam Physical Exam GENERAL: Elderly female appears cachectic in significant respiratory distress on nonrebreather facemask. HEAD: Normocephalic. NECK: Supple, trachea midline. No lymphadenopathy. EYES: No scleral icterus. No injection or drainage. CARDIOVASCULAR: Regular rate and rhythm without murmurs, gallops, or rubs. RESPIRATORY: Air entry decreased bilaterally at bases, scattered rhonchi, no wheezing. Tachypneic, using accessory muscles of respiration on nonrebreather facemask GASTROINTESTINAL: Abdomen soft, non-tender, nondistended. MUSCULOSKELETAL: No cyanosis, or edema. SKIN: Warm and dry. NEURO: No focal neurological deficitis. Laboratory Laboratory Tests Test 03/05/18 12:50 03/05/18 13:50 03/06/18 00:23 03/06/18 05:56 White Blood Count 5.1 Red Blood Count 3.58 Hemoglobin 12.0 Hematocrit 35.3 Mean Corpuscular Volume 98.5 Mean Corpuscular Hemoglobin 33.6 Mean Corpuscular Hemoglobin Concent 34.1 Red Cell Distribution Width 22.6 Platelet Count 312 Mean Platelet Volume 8.9 Neutrophils (%) (Auto) 92.5 Lymphocytes (%) (Auto) 5.2 Monocytes (%) (Auto) 1.9 Eosinophils (%) (Auto) 0.3 Basophils (%) (Auto) 0.1 Neutrophils # (Auto) 4.7 Lymphocytes # (Auto) 0.3 Monocytes # (Auto) 0.1 Eosinophils # (Auto) 0.0 Basophils # (Auto) 0.0 CBC Comment DIFF FINAL Differential Comment Blood Urea Nitrogen 14 Creatinine 0.71 Random Glucose 117 Total Protein 5.9 Albumin 2.2 Calcium Level 7.9 Magnesium Level 2.0 Alkaline Phosphatase 96 Aspartate Amino Transf (AST/SGOT) 44 Alanine Aminotransferase (ALT/SGPT) 27 Total Bilirubin 1.1 Sodium Level 136 Potassium Level 4.3 Chloride Level 99 Carbon Dioxide Level 27.6 Anion Gap 9 Estimat Glomerular Filtration Rate 80 Total Creatine Kinase 61 B-Type Natriuretic Peptide 24 Lactic Acid Level 3.4 Blood Gas Puncture Site LT BRACHIAL Blood Gas Patient Temperature 98.6 Blood Gas HCO3 26 Blood Gas Base Excess 3.1 Blood Gas Oxygen Saturation 97 Arterial Blood pH 7.51 Arterial Blood Partial Pressure CO2 34 Arterial Blood Partial Pressure O2 156 Arterial Blood Oxygen Content 15.8 Arterial Blood Carboxyhemoglobin 1.4 Arterial Blood Methemoglobin 1.2 Blood Gas Hemoglobin 11.4 Oxygen Delivery Device NRB Blood Gas Liter Flow 15 Blood Gas Inspired Oxygen 100 Date/Time Source Procedure Growth Status 03/05/18 14:00 Blood Peripheral Aerobic Blood Culture - Preliminary NO GROWTH IN 1 DAY Resulted 03/05/18 14:00 Blood Peripheral Anaerobic Blood Culture - Preliminary NO GROWTH IN 1 DAY Resulted Result Diagram: 03/05/18 1250 03/05/18 1250 Imaging CXR 03/06(before pigtail catheter placement): Bilateral infiltrates, right pleural effusion, loculated left effusion CXR 03/06(after pigtail catheter placement): Right-sided pigtail catheter in place. Bilateral infiltrates, resolved right pleural effusion, loculated left effusion Assessment and Plan Assessment and Plan 72-year-old female with: Acute respiratory failure: Multifactorial secondary to lung metastases, pneumonia, pleural effusions. Metastatic breast cancer Sepsis Pneumonia ? COPD Recurrent pleural effusion Plan: Neuro: Follow neuro status. Pain medications as needed. Cardiovascular: IV hydration, watch for hypotension. 2D echo ordered to assess LV function and also to evaluate for any pericardial fluid. Pulmonary: Continue supplemental O2, bronchodilators, pulmonary toilet. Placed right-sided pigtail catheter with drainage of 1200 cc of straw-colored pleural fluid on 03/06 with some improvement in respiratory symptoms. Patient had a recent left-sided pleurodesis. May require CT chest to evaluate for PE which was discussed with Dr. Moreau if respiratory symptoms do not improve following drainage of pleural fluid. On IV Solu-Medrol 40 mg IV every 6 hourly GI/liver: P.o. intake as tolerated. Renal/: IV hydration, strict intake output, monitor and replete electrolyte, follow BUN/creatinine. ID: Follow-up cultures, empiric antibiotic coverage with IV Zithromax and cefepime. Being followed by ID. Endocrine: Watch for hypoglycemia, SSI for glycemic control if needed. Heme: Follow CBC. Being followed by Dr. Gore/Dr. Moreau for metastatic breast cancer and has recently had chemotherapy. Prophylaxis: Pepcid/SCDs/Lovenox Extensive discussion with patient and her at bedside as well as with Dr. Moreau and Dr. Fontaine. Palliative care consult requested by hospitalist service as long-term prognosis appears poor. Condition critical. Patient may require intubation if respiratory status worsens. Time spent on critical care excluding procedures 60 minutes. Marco Feldman MD March 06, 2018 11:45
[2018-03-06 11:46] LABS: MEAN CORPUSCULAR HGB CONC 36.5 % (32.0-36.0)
--- NOTE | 2018-03-06 11:49 | PD.PROCEDR ---
Procedure Note Procedure Procedure: Pigtail catheter placement site: Right pleural cavity in 6th intercostal space posteriorly. Preop diagnosis: Recurrent right pleural effsuion Postop diagnosis: Same Informed consent: Obtained from patient/ and documented on chart. Anesthesia used: 1% lidocaine for local infiltration anesthesia Procedure: After sterile prepping and draping using 1% lidocaine for local infiltration anesthesia, introducer Angiocath was used to enter right pleural cavity in 6th intercostal space posteriorly using ultrasound guidance. Pleural cavity was entered as evidenced by return of pleural fluid. A guidewire was passed through Angiocath without any resistance following which Angiocath was removed. 10 Thai pigtail catheter was advanced over the guidewire into the right pleural cavity following which guidewire and stiffener were removed. Pigtail catheter was connected to Pleur-evac VAC with a connector. Pigtail catheter was sutured in place as well as secured with stayfix. About 1200cc pleural fluid drained almost immediately. Postprocedure chest x-ray was ordered. It will be reviewed when available. Patient tolerated procedure well with no immediate complications noted. Marco Feldman MD March 06, 2018 11:49
[2018-03-06 12:17] LABS: ALBUMIN 1.7 GM/DL (3.4-5.0); ALT (GPT) 18 U/L (10-53); AST (GOT) 23 U/L (15-37); CREATININE 0.52 MG/DL (0.50-1.00); GLOMERULAR FILTRATION RATE 115 ML/MIN (>89); TOTAL BILIRUBIN ADULT 1.2 MG/DL (0.2-1.0)
[2018-03-06 12:18] LABS: ALKALINE PHOSPHATASE 86 U/L (45-117); BLOOD UREA NITROGEN 11 MG/DL (7-18); CALCIUM 7.8 MG/DL (8.5-10.1); GLUCOSE,RANDOM 92 MG/DL (74-106); SODIUM (NA) 140 MEQ/L (136-145); TOTAL PROTEIN 5.7 GM/DL (6.4-8.2)
[2018-03-06 12:19] LABS: BICARBONATE 26.6 MEQ/L (21.0-32.0); CHLORIDE 104 MEQ/L (98-107)
[2018-03-06 12:23] LABS: BANDS 13 % (0-6); LYMPHOCYTES 2 % (9-44); MONOCYTES 1 % (0-8); NEUTROPHIL # MANUAL DIFF 4.9 TH/MM3 (1.8-7.7); POLYS (SEG NEUTROPHILS) 84 % (16-70)
--- NOTE | 2018-03-06 13:29 | EKG ---
Date Performed: 03/05/2018 Time Performed: 12:47:59 PTAGE: 72 years EKG: SINUS TACHYCARDIA WITH OCCASIONAL PACs GENERALIZED LOW VOLTAGE ABNORMAL RHYTHM ECG Since PREVIOUS TRACING , no significant change noted PREVIOUS TRACIN02/27/2018 10.12 DOCTOR: Joseph Varela Interpretating Date/Time 03/06/2018 13:27:47
[2018-03-06] MEDS: QUEtiapine FUMARATE 25 MG TAB PO SCH ×2 (14:00→21:12)
[2018-03-06] MEDS: AZITHROMYCIN 250 MG TAB PO SCH (15:00)
[2018-03-06] MEDS: LACTOBACILLUS ACIDOPHILUS TAB PO SCH ×3 (17:34→18:00)
[2018-03-06] MEDS: DEXT 5%-NACL 0.9% 1000 ML INJ 1,000 ML IV SCH (17:34)
[2018-03-06] MEDS: ENOXAPARIN SODIUM 40 MG/0.4 ML SYRINGE SQ SCH (17:35)
--- NOTE | 2018-03-06 17:57 | ECHRPT ---
Indication: ASSESS LV FUNCTION CONCLUSIONS Normal left ventricular size. Wall thickness is normal. No regional wall motion abnormalities are present. Trace mitral valve regurgitation. There is moderate tricuspid valve regurgitation. The estimated pulmonary arterial pressure is 54.4 mmHg. Trivial pulmonary valve regurgitation. BP: / HR: Rhythm: Sinus MEASUREMENTS (Male / Female) Normal Values Technical Quality:Fair 2D ECHO LVOT Diameter 1.7 cm LV Ejection Fraction MOD BP 66.7 % >= 55 % LV Ejection Fraction MOD 4C 73.6 % LV Ejection Fraction 4C AL 75.1 % LV Ejection Fraction MOD 2C 56.7 % LV Ejection Fraction 2C AL 61.1 % M-MODE Aortic Root Diameter MM 2.0 cm LA Systolic Diameter MM 3.1 cm LA Ao Ratio MM 1.6 AV Cusp Separation MM 1.9 cm DOPPLER AV Peak Velocity 122.0 cm/s AV Peak Gradient 6.0 mmHg LVOT Peak Velocity 85.9 cm/s LVOT Peak Gradient 3.0 mmHg AV Area Cont Eq pk 1.6 cm MV Area PHT 5.0 cm Mitral E Point Velocity 56.8 cm/s Mitral A Point Velocity 85.4 cm/s Mitral E to A Ratio 0.7 TR Peak Velocity 333.0 cm/s TR Peak Gradient 44.4 mmHg Right Atrial Pressure 10.0 mmHg Pulmonary Artery Systolic Pressu 54.4 mmHg Right Ventricular Systolic Press 54.4 mmHg PV Peak Velocity 82.8 cm/s PV Peak Gradient 2.7 mmHg FINDINGS LEFT VENTRICLE The left ventricular systolic function is normal with an estimated ejection fraction in the range of 60-65%. Normal left ventricular size. Wall thickness is normal. No regional wall motion abnormalities are present. RIGHT VENTRICLE Normal right ventricular size and systolic function. LEFT ATRIUM The left atrial size is normal. RIGHT ATRIUM The right atrial size is normal. ATRIAL SEPTUM Normal atrial septal thickness without atrial level shunting by limited color doppler interrogation. AORTA The aortic root and proximal ascending aorta are normal in size on limited imaging. MITRAL VALVE Structurally normal mitral valve. Trace mitral valve regurgitation. AORTIC VALVE Trileaflet aortic valve. No aortic valve stenosis or regurgitation. TRICUSPID VALVE Structurally normal tricuspid valve. There is moderate tricuspid valve regurgitation. The estimated pulmonary arterial pressure is 54.4 mmHg. PULMONARY VALVE Trivial pulmonary valve regurgitation. VESSELS The inferior vena cava is normal in size. PERICARDIUM No pericardial effusion. Kirk Hector MD, FACC (Electronically Signed) Final Date:06 Mar 2018 17:56
--- NOTE | 2018-03-06 20:04 | MB ---
cc: Yohannes Barrera MD DATE: 03/06/2018 REQUESTING PHYSICIAN: Dr. Marco Feldman REASON FOR CONSULTATION: Recurrent pleural effusion. HISTORY OF PRESENT ILLNESS: Ms. Keen is a pleasant 72-year-old female who is originally from [facility] and she was living in this about a year or so. She has a history of metastatic breast carcinoma. She has mets to the pleura, bones and liver and she had recurrent pleural effusion. She had left pleurodesis done 2 months ago. She had her last right thoracentesis done 1 week ago, 1500 mL of the fluid was removed; 3-4 days later, she started having shortness of breath again. She was admitted in the hospital. She had pleural effusion, left pleural effusion is loculated. Ultrasound showed significant effusion. She had a right-sided chest pigtail catheter placed and 1500 mL of fluid was removed. She has cough and congestion. No fever or chills. No night sweats. She is weak. PAST MEDICAL HISTORY: Metastatic carcinoma, recurrent pleural effusion, left chest pleurodesis, hypertension, osteoarthritis, bilateral cataract surgery, history of femur surgery. MEDICATIONS: She is currently taking Zithromax 500 mg daily, Xanax 0.5 mg q. 6 hours, Seroquel 25 mg twice a day, albuterol/Atrovent nebulized treatment, Solu-Medrol 40 mg q. 6 hours, cefepime 2 grams q. 8 hours, Tessalon 100 mg 3 times a day, Xanax 0.5 mg at nighttime, [place] 5/325 q. 4 hours p.r.n., Lovenox 40 mg a day, metoprolol 5 mg q. 6 hours p.r.n. ALLERGIES: NO KNOWN DRUG ALLERGIES. SOCIAL HISTORY: She has a history of smoking and alcohol use, which she quit. She is a homemaker. FAMILY HISTORY: She is for 52 years. She has 2 children. REVIEW OF SYSTEMS: She has lost significant amount of weight. No coronary artery disease. No seizure, stroke episode. No DVT, no pulmonary embolism. PHYSICAL EXAMINATION: GENERAL: Elderly female, mild short of breath. VITAL SIGNS: Blood pressure 138/87, heart rate 117, respirations 20, temperature 97.7. HEENT: Pupils are equal and reactive to light. She has bilateral cataracts. Oral mucosa and nasal mucosa normal. NECK: Supple. JVD not raised. LUNGS: Decreased breath sounds, has a right chest tube in place. CARDIOVASCULAR: S1, S2 normal. ABDOMEN: Benign. EXTREMITIES: No edema. IMPRESSION: 1. Recurrent pleural effusion. 2. Malignant pleural effusion, status post left pleurodesis. 3. Metastatic carcinoma of the breast. 4. Hypertension. PLAN: I discussed with the patient and her , we will leave the chest tube to drain and then consider pleurodesis. The patient is also inquiring about the possibility of PleurX catheter. Continue present antibiotics, supplemental oxygen. Further treatment pending the course in the hospital. Thank you, Dr. Marco Feldman, for this consult. MD SAVI Lawrence/PETRONA/ , 05:51 PM , 06:45 PM MTDManfred
[2018-03-06] MEDS: ALPRAZolam 0.5 MG TAB PO SCH (21:12)
[2018-03-06] MEDS: ALPRAZolam 0.5 MG TAB PO PRN (21:12)
[2018-03-06] MEDS ORDERED: CHLORHEXIDINE GLUCONATE 2 % 1 PACK (2 CLOTHS)(extra cloths) TOPICAL PRN (23:15)
[2018-03-07] VITALS (11 sets, daily range): BP systolic 88–115; BP diastolic 52–70; PULSE 91–108; RESP 24–32; TEMP 97.8–98; O2SAT 84–100
[2018-03-07] MEDS: methylPREDNISolone SOD SUCC 40 MG/1 ML VIAL IV PUSH SCH ×4 (02:22→20:32)
[2018-03-07] MEDS: RESP: ALBUTEROL 2.5 MG/IPRATROPIUM 0.5 MG NEB (SCH) NEB ×6 (03:28→23:56)
[2018-03-07] MEDS: CHLORHEXIDINE GLUCONATE 2 % 1 PACK (2 CLOTHS)(taper/protocol) TOPICAL SCH (04:00)
[2018-03-07] MEDS: CEFEPIME INJ 2,000 MG in SODIUM CHLORIDE 0.9% INJ 100 ML IV SCH ×3 (05:27→20:32)
[2018-03-07 05:38] LABS: AUTOMATED NEUTROPHIL # 3.5 TH/MM3 (1.8-7.7); BASOPHIL % 0.1 % (0.0-2.0); EOSINOPHIL % 0.1 % (0.0-4.0); HEMATOCRIT 26.1 % (35.0-46.0); LYMPH % 4.3 % (9.0-44.0); LYMPHOCYTE # 0.2 TH/MM3 (1.0-4.8); MEAN CELL VOLUME 97.9 FL (80.0-100.0); MEAN CORPUSCULAR HEMOGLOBIN 33.7 PG (27.0-34.0); MEAN CORPUSCULAR HGB CONC 34.5 % (32.0-36.0); MEAN PLATELET VOLUME 8.9 FL (7.0-11.0); MONO % 2.5 % (0.0-8.0); MONOCYTE # 0.1 TH/MM3 (0-0.9); PLATELET COUNT 204 TH/MM3 (150-450); RED BLOOD COUNT 2.67 MIL/MM3 (4.00-5.30); RED CELL DISTRIBUTION WIDTH 22.5 % (11.6-17.2); WHITE BLOOD COUNT 3.8 TH/MM3 (4.0-11.0)
[2018-03-07 06:36] LABS: ALBUMIN 1.6 GM/DL (3.4-5.0); ALKALINE PHOSPHATASE 65 U/L (45-117); ALT (GPT) 16 U/L (10-53); AST (GOT) 16 U/L (15-37); BICARBONATE 27.7 MEQ/L (21.0-32.0); BLOOD UREA NITROGEN 11 MG/DL (7-18); CALCIUM 7.8 MG/DL (8.5-10.1); CHLORIDE 107 MEQ/L (98-107); CREATININE 0.53 MG/DL (0.50-1.00); GLOMERULAR FILTRATION RATE 113 ML/MIN (>89); GLUCOSE,RANDOM 225 MG/DL (74-106); SODIUM (NA) 141 MEQ/L (136-145); TOTAL BILIRUBIN ADULT 0.6 MG/DL (0.2-1.0); TOTAL PROTEIN 4.8 GM/DL (6.4-8.2)
[2018-03-07] MEDS: DEXT 5%-NACL 0.9% 1000 ML INJ 1,000 ML IV SCH ×3 (08:26→23:06)
[2018-03-07] MEDS: SODIUM CHLORIDE 0.9% FLUSH 10 ML FLUSH IV FLUSH SCH ×2 (08:27→20:31)
--- NOTE | 2018-03-07 08:45 | HHI.IDPN ---
Subjective Subjective Remarks Patient is a 72-year-old female, with known metastatic breast cancer, has metastases to the lungs liver and bone, presented to the hospital with worsening shortness of breath. Patient has had problem with recurrent bilateral pleural effusions, and had a surgical procedure done on the left side with pleurodesis with improvement on her left sided pleural effusion. She continues to have recurrent right-sided pleural effusion, and she gets therapeutic thoracentesis done. The last time it was done was February 28. According to the patient the day after the procedure she started getting short of breath again, and it had progressively worsened. She has had some dry cough. She has not had any nausea or vomiting, denies any urinary complaints. She usually has liquid stool but has a bowel movement at least 1-2 a day. She felt feverish. She presented to the hospital, and her chest x-ray showed bilateral pulmonary infiltrates, and has not shown recurrent effusion on the right side. She was febrile overnight. She was on 10 L of nasal O2, however this morning her sats were in the high 70s, and she is currently on a nonrebreather mask. She has saturation ranging between 89-94. She is complaining of significant worsening of her shortness of breath. Patient lives with the and the has no respiratory problem. She has not been around any pets or any sick children. Infectious disease consultation has been requested to evaluate the patient. Notes reviewed Transferred to ICU yesterday Has CT R - initially put out 1200 ml Breathing better, on high flow nasal O2 Afebrile No CP Pulmonary following Antibiotics Cefepime Zithromax Current Medications Medications (Trade) Dose Ordered Sig/Betty Route Start Time Stop Time Status Last Admin (Reglan Inj) 5 mg Q6H PRN IV PUSH 03/05/18 15:15 (Lovenox Inj) 40 mg Q24H SQ 03/05/18 16:00 03/06/18 17:35 (Camille-Colace) 1 tab BID PO 03/05/18 21:00 03/06/18 21:12 (Milk Of Magnesia Liq) 30 ml Q12H PRN PO 03/05/18 15:15 (Senokot) 17.2 mg Q12H PRN PO 03/05/18 15:15 (Dulcolax Supp) 10 mg DAILY PRN RECTAL 03/05/18 15:15 (Lactulose Liq) 30 ml DAILY PRN PO 03/05/18 15:15 Cefepime HCl 2000 mg/Sodium Chloride 100 ml @ 200 mls/hr Q8H IV 03/05/18 22:00 03/07/18 05:27 (Zithromax) 500 mg Q24H PO 03/06/18 15:00 03/06/18 15:00 (Duoneb Neb) 1 ampule Q4HR NEB PRN NEB 03/05/18 15:15 03/06/18 00:55 (NS Flush) 2 ml UNSCH PRN IV FLUSH 03/05/18 16:30 (NS Flush) 2 ml BID IV FLUSH 03/05/18 21:00 03/07/18 08:27 (Zofran Inj) 4 mg Q6H PRN IVP 03/05/18 16:30 ([place] 5-325 Mg) 1 tab Q4H PRN PO 03/05/18 16:30 ([place] 10-325 Mg) 1 tab Q4H PRN PO 03/05/18 16:30 (Narcan Inj) 0.4 mg UNSCH PRN IV PUSH 03/05/18 16:30 (Milk Of Magnesia Liq) 30 ml Q12H PRN PO 03/05/18 16:30 (Lactinex) 1 tab TID PO 03/05/18 18:00 03/06/18 17:38 (Tums Chew) 500 mg Q2H PRN CHEW 03/05/18 21:15 03/05/18 21:26 (Tessalon) 100 mg TID PRN PO 03/05/18 21:45 03/05/18 22:04 (Xanax) 0.5 mg HS PO 03/05/18 21:45 03/06/18 21:12 (Tylenol) 650 mg Q4H PRN PO 03/06/18 00:45 03/06/18 01:01 (SoluMEDROL INJ) 40 mg Q6H IV PUSH 03/06/18 09:00 03/07/18 02:22 Dextrose/Sodium Chloride 1,000 ml @ 84 mls/hr [id number] IV 03/06/18 12:00 03/07/18 08:26 (Duoneb Neb) 1 ampule Q4HR NEB NEB 03/06/18 12:00 03/07/18 08:08 (Xanax) 0.5 mg Q6H PRN PO 03/06/18 14:00 03/06/18 21:12 (SEROquel) 25 mg BID PO 03/06/18 14:00 03/06/18 21:12 ([facility] [place] [facility] [place] Patient in [place] care unit? Ass... [id number] .XX 03/06/18 23:15 03/06/18 23:15 (Chlorhexidine 2% Cloth) 3 pack DAILY@04 TOPICAL 03/07/18 04:00 03/11/18 04:01 03/07/18 04:00 (Chlorhexidine 2% Cloth) 3 pack UNSCH PRN TOPICAL 03/06/18 23:15 03/11/18 23:02 Lines PIV Past Medical History Breast Cancer Metastatic cancer to liver Metastatic cancer to bone Active Chemotherapy General anxiety disorder Depression Hypothyroidism Past Surgical History Right leg fracture repair Right kidney stent Mastectomy right, and reconstructive surgery on the right breast [id number]-o-Oelq placement Tonsillectomy Abdominal hernia repair Surgery on the left chest for recurrent pleural effusion Multiple thoracenteses Allergies: Coded Allergies: No Known Allergies (Unverified , 03/05/18) Objective . Vital Signs Date Time Temp Pulse Resp B/P (MAP) Pulse Ox O2 Delivery O2 Flow Rate FiO2 03/07/18 08:09 96 High Flow Nasal Cannula 20.00 60 03/07/18 06:00 91 03/07/18 04:00 98.0 101 26 88/57 (67) 97 03/07/18 04:00 92 03/07/18 03:33 96 High Flow Nasal Cannula 20.00 60 03/07/18 02:00 101 03/07/18 00:00 101 03/07/18 00:00 97.8 101 24 89/52 (64) 100 03/06/18 22:00 115 03/06/18 20:00 114 03/06/18 20:00 98.0 118 22 102/57 (72) 98 03/06/18 19:56 96 Nasal Cannula 6.00 03/06/18 19:00 94 Nasal Cannula 7.00 03/06/18 16:00 97.9 103 23 116/95 (102) 95 03/06/18 08:40 97.7 117 28 138/87 (104) 98 03/06/18 08:40 Non-Rebreather 15.00 . Laboratory Tests Test 03/05/18 12:50 03/06/18 11:22 03/07/18 05:06 White Blood Count 5.1 TH/MM3 5.1 TH/MM3 3.8 TH/MM3 Red Blood Count 3.58 MIL/MM3 3.28 MIL/MM3 2.67 MIL/MM3 Hemoglobin 12.0 GM/DL 11.6 GM/DL 9.0 GM/DL Hematocrit 35.3 % 31.7 % 26.1 % Mean Corpuscular Volume 98.5 FL 96.8 FL 97.9 FL Mean Corpuscular Hemoglobin 33.6 PG 35.4 PG 33.7 PG Mean Corpuscular Hemoglobin Concent 34.1 % 36.5 % 34.5 % Red Cell Distribution Width 22.6 % 22.5 % 22.5 % Platelet Count 312 TH/MM3 249 TH/MM3 204 TH/MM3 Mean Platelet Volume 8.9 FL 8.2 FL 8.9 FL Neutrophils (%) (Auto) 92.5 % 93.0 % Lymphocytes (%) (Auto) 5.2 % 4.3 % Monocytes (%) (Auto) 1.9 % 2.5 % Eosinophils (%) (Auto) 0.3 % 0.1 % Basophils (%) (Auto) 0.1 % 0.1 % Neutrophils # (Auto) 4.7 TH/MM3 3.5 TH/MM3 Lymphocytes # (Auto) 0.3 TH/MM3 0.2 TH/MM3 Monocytes # (Auto) 0.1 TH/MM3 0.1 TH/MM3 Eosinophils # (Auto) 0.0 TH/MM3 0.0 TH/MM3 Basophils # (Auto) 0.0 TH/MM3 0.0 TH/MM3 CBC Comment DIFF FINAL AUTO DIFF DIFF FINAL Differential Comment FINAL DIFF MANUAL Differential Total Cells Counted 100 Neutrophils % (Manual) 84 % Band Neutrophils % 13 % Lymphocytes % 2 % Monocytes % 1 % Neutrophils # (Manual) 4.9 TH/MM3 Platelet Estimate NORMAL Platelet Morphology Comment NORMAL Laboratory Tests Test 03/05/18 12:50 03/05/18 13:50 03/06/18 11:22 03/07/18 05:06 Blood Urea Nitrogen 14 MG/DL 11 MG/DL 11 MG/DL Creatinine 0.71 MG/DL 0.52 MG/DL 0.53 MG/DL Random Glucose 117 MG/DL 92 MG/DL 225 MG/DL Total Protein 5.9 GM/DL 5.7 GM/DL 4.8 GM/DL Albumin 2.2 GM/DL 1.7 GM/DL 1.6 GM/DL Calcium Level 7.9 MG/DL 7.8 MG/DL 7.8 MG/DL Magnesium Level 2.0 MG/DL Alkaline Phosphatase 96 U/L 86 U/L 65 U/L Aspartate Amino Transf (AST/SGOT) 44 U/L 23 U/L 16 U/L Alanine Aminotransferase (ALT/SGPT) 27 U/L 18 U/L 16 U/L Total Bilirubin 1.1 MG/DL 1.2 MG/DL 0.6 MG/DL Sodium Level 136 MEQ/L 140 MEQ/L 141 MEQ/L Potassium Level 4.3 MEQ/L 3.5 MEQ/L 3.7 MEQ/L Chloride Level 99 MEQ/L 104 MEQ/L 107 MEQ/L Carbon Dioxide Level 27.6 MEQ/L 26.6 MEQ/L 27.7 MEQ/L Anion Gap 9 MEQ/L 9 MEQ/L 6 MEQ/L Estimat Glomerular Filtration Rate 80 ML/MIN 115 ML/MIN 113 ML/MIN Total Creatine Kinase 61 U/L B-Type Natriuretic Peptide 24 PG/ML 59 PG/ML Lactic Acid Level 3.4 mmol/L Troponin I LESS THAN 0.02 NG/ML Microbiology Date/Time Source Procedure Growth Status 03/05/18 14:00 Blood Peripheral Aerobic Blood Culture - Preliminary NO GROWTH IN 1 DAY Resulted 03/05/18 14:00 Blood Peripheral Anaerobic Blood Culture - Preliminary NO GROWTH IN 1 DAY Resulted 03/05/18 13:50 Blood Peripheral Aerobic Blood Culture - Preliminary NO GROWTH IN 1 DAY Resulted 03/05/18 13:50 Blood Peripheral Anaerobic Blood Culture - Preliminary NO GROWTH IN 1 DAY Resulted Physical Exam GENERAL: Patient is a thin, well-developed female, awakens easily, looks comfortable at rest on nasal O2 SKIN: Cool and dry. No generalized rash, no ecchymoses and no evidence of embolic lesions. HEAD: Atraumatic. Normocephalic. No temporal wasting, or tenderness. EYES: [place] conjunctiva. No petechia or hemorrhage. Pupils equal, round and reactive to light. Extraocular movements full and intact. No scleral icterus. No injection or drainage. EARS, NOSE AND THROAT: Nose without bleeding or purulent nasal discharge. No sinus tenderness. Mucous membranes pink and moist. No oral lesions noted. No exudate. No oral thrush. NECK: Trachea midline. Supple and not tender, no meningeal signs CARDIOVASCULAR: Regular rate and rhythm. No murmurs, rubs or gallops heard RESPIRATORY: Better air movement. Decreased sat bases. Port looks ok ABDOMEN: Mildly distended, not tender, bowel sounds present and normoactive. No guarding or rebound. No organomegaly. EXTREMITIES: No clubbing, cyanosis, or edema. No joint effusion, has good ROM. No calf tenderness. Well perfused and warm. NEUROLOGICAL: Awakens easily, Non-focal. PSYCHIATRIC: Calm and cooperative. LINE: No evidence of infection Assessment & Plan Remarks IMPRESSION [place] infiltrates Respiratory failure, due to recurrent pleural effusion Metastatic breast CA (lungs, liver, bone), on chemo Cachexia RECOMMENDATION Continue Cefepime Continue Zithromax Add Vancomycin Follow C/S Monitor progress Orin Viramontes MD March 07, 2018 08:45
[2018-03-07] MEDS ORDERED: VANCOMYCIN INJ 1,000 MG in SODIUM CHLOR 0.9% 250 ML INJ 250 ML IV ONE (09:15)
[2018-03-07] MEDS: LACTOBACILLUS ACIDOPHILUS TAB PO SCH ×3 (09:28→18:00)
[2018-03-07] MEDS: QUEtiapine FUMARATE 25 MG TAB PO SCH ×2 (09:29→20:32)
[2018-03-07] MEDS: DOCUSATE SODIUM 50 MG/SENNA 8.6 MG TAB PO SCH ×2 (09:29→20:32)
--- NOTE | 2018-03-07 10:15 | PD.CONS ---
Consult Service Palliative Care . Consult Requested By Dr. Fontaine . Primary Care Physician Non-Staff . Reason for Consultation a. To assist with evaluation and management of symptoms including: dyspnea ; anxiety b. To assist medical decision maker(s) with: better understanding of current medical conditions; weighing benefits/burdens of medical treatment options; making medical treatment decisions. . HPI History of Present Illness Ms. 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 She has gone on to develop recurrent and widely metastatic disease. She required a right simple mastectomy in October 2012. In January 2016 she developed visual abnormalities and was found to have metastatic disease to the left choroid requiring radiation in February of that year. Also noted at that time or metastases to the left axilla. This was felt to be metastatic and not another primary involving the left breast. The patient is now known to have widely metastatic disease involving long, liver, bone, skin and nodes. There has been dilatation of the right and left renal collecting systems and ureters consistent with bilateral hydronephrosis and requiring stent placement. The patient has recently been under the care of Dr. Joseph Gore in medical oncology. She has been receiving weekly doses of Taxol. Symptomatically, her most pressing problem is recurrent pleural effusions. Since July 2017 she has undergone multiple ultrasound-guided thoracenteses of both the left and the right side. Her most recent thoracentesis prior to this hospitalization was on 03/03/2018. She underwent pleurodesis of the left hemithorax recently. On 03/05/18 the patient complained of increasing shortness of breath, severe enough that she was unable to get out of bed. She was brought to the emergency department where imaging revealed bilateral interstitial airspace infiltrates as well as moderate pleural effusions on the right and the left. She was placed on broad-spectrum antibiotics. She has been continued on steroids. A pigtail catheter was placed on the right side on 03/06/18 and immediately drained 1200 cc of clear, serous fluid. The fluid drainage helped her respiratory status. Patient gets vague generalized pain following chemotherapy which she cannot describe very well. It is helped by opiates. She says she has some Oxycontin at home that she uses for that but does not know the dosage. She has occasional arthritis pain (primarily in the shoulders). She does not usually take opiates for SOB -- she is afraid of using them up and that doctors will be unwilling to prescribe more. She reports using alprazolam for anxiety for decades. She uses 0.5 mg every night and takes 0.25 mg up to once a day for anxiety and when she is "fed up." When asked how her spirits are holding up though all the health issues over the last months, she says "terrible." When asked about druze/spirituality, she says she was brought up in a Quaker tradition by a very protestant father, but at this point, "I have lost all my samm." Critical care, pulmonology, and infections disease have been consulted. Patient remains int he ICU on high flow 02. She is receiving IV steroids. She has not been receiving parenteral opiates. Blood cultures are negative to date. There is significant hypoalbuminemia with an albumin level of 1.6 on 03/07/18. . . Function/Cognitive Trajectory Patient was very active and exercised daily up until a few months ago. Her weight has gone from 120 lbs to 88 lbs over the last year or so. Appetite is poor. When pleural effusions are drained and she is not dyspneic, she ambulates around the house without assistive device. . Past Family Social History Coded Allergies: No Known Allergies (Unverified , 03/05/18) Past Medical History Breast Cancer Metastatic cancer to liver Metastatic cancer to bone Active Chemotherapy General anxiety disorder Depression Hypothyroidism . Past Surgical History Right leg fracture repair 2006 Right kidney stent Lumpectomy 1991 Mastectomy right, and reconstructive surgery on the right breast 2012 Tonsillectomy Abdominal hernia repair 2004 Surgery on the left chest for recurrent pleural effusion Multiple thoracenteses [id number] placement Left axillary excisional biopsy 02/03/2016 Cataract removal 2009 . Reported Medications Pre - hospital medications included the following: * Levofloxacin 750 mg tablet; one by mouth daily * Aspirin 81 mg tablet; one by mouth daily * Hydrocodone/acetaminophen 5/325 mg tablet; one by mouth every 6 hours as needed for pain level #3-5 * Alprazolam 0.5 mg tablet; one by mouth at bedtime * Alprazolam 0.25 mg tablet; one by mouth every 4 hours as needed for anxiety * Calcium carbonate 600 mg of calcium; 2 tablets by mouth twice daily * Ondansetron 4 mg tablet; one by mouth every 6 hours as needed for nausea/ vomiting * Prednisone 10 mg tablet; 10 mg as directed per dose pack * Levothyroxine 112 mcg tablet; one by mouth daily * Vitamin D 2000 units by mouth daily * Multiple vitamin mineral supplement 1 by mouth daily . Current Medications Medications (Trade) Dose Ordered Sig/Betty Route Start Time Stop Time Status Last Admin (Reglan Inj) 5 mg Q6H PRN IV PUSH 03/05/18 15:15 (Lovenox Inj) 40 mg Q24H SQ 03/05/18 16:00 03/06/18 17:35 (Camille-Colace) 1 tab BID PO 03/05/18 21:00 03/07/18 09:29 (Milk Of Magnesia Liq) 30 ml Q12H PRN PO 03/05/18 15:15 (Senokot) 17.2 mg Q12H PRN PO 03/05/18 15:15 (Dulcolax Supp) 10 mg DAILY PRN RECTAL 03/05/18 15:15 (Lactulose Liq) 30 ml DAILY PRN PO 03/05/18 15:15 Cefepime HCl 2000 mg/Sodium Chloride 100 ml @ 200 mls/hr Q8H IV 03/05/18 22:00 03/07/18 05:27 (Zithromax) 500 mg Q24H PO 03/06/18 15:00 03/06/18 15:00 (Duoneb Neb) 1 ampule Q4HR NEB PRN NEB 03/05/18 15:15 03/06/18 00:55 (NS Flush) 2 ml UNSCH PRN IV FLUSH 03/05/18 16:30 (NS Flush) 2 ml BID IV FLUSH 03/05/18 21:00 03/07/18 08:27 (Zofran Inj) 4 mg Q6H PRN IVP 03/05/18 16:30 ([place] 5-325 Mg) 1 tab Q4H PRN PO 03/05/18 16:30 ([place] 10-325 Mg) 1 tab Q4H PRN PO 03/05/18 16:30 (Narcan Inj) 0.4 mg UNSCH PRN IV PUSH 03/05/18 16:30 (Milk Of Magnesia Liq) 30 ml Q12H PRN PO 03/05/18 16:30 (Lactinex) 1 tab TID PO 03/05/18 18:00 03/07/18 09:28 (Tums Chew) 500 mg Q2H PRN CHEW 03/05/18 21:15 03/05/18 21:26 (Tessalon) 100 mg TID PRN PO 03/05/18 21:45 03/05/18 22:04 (Xanax) 0.5 mg HS PO 03/05/18 21:45 03/06/18 21:12 (Tylenol) 650 mg Q4H PRN PO 03/06/18 00:45 03/06/18 01:01 (SoluMEDROL INJ) 40 mg Q6H IV PUSH 03/06/18 09:00 03/07/18 09:29 Dextrose/Sodium Chloride 1,000 ml @ 84 mls/hr [id number] IV 03/06/18 12:00 03/07/18 08:26 (Duoneb Neb) 1 ampule Q4HR NEB NEB 03/06/18 12:00 03/07/18 08:08 (Xanax) 0.5 mg Q6H PRN PO 03/06/18 14:00 03/06/18 21:12 (SEROquel) 25 mg BID PO 03/06/18 14:00 03/07/18 09:29 ([facility] Nursing Information) Patient in critical care unit? Ass... [id number] .XX 03/06/18 23:15 03/06/18 23:15 (Chlorhexidine 2% Cloth) 3 pack DAILY@04 TOPICAL 03/07/18 04:00 03/11/18 04:01 03/07/18 04:00 (Chlorhexidine 2% Cloth) 3 pack UNSCH PRN TOPICAL 03/06/18 23:15 03/11/18 23:02 Vancomycin HCl 1000 mg/Sodium Chloride 250 ml @ 250 mls/hr ONCE ONCE IV 03/07/18 09:15 03/07/18 10:14 . Family History Patient's mother at age 98. She had colon cancer diagnosed 2 years before her . Patient's father at age 83 of unknown cause. No family history of breast cancer Hyperlipidemia runs in family . Substance Use Tobacco: The patient smoked approximately one half pack per day for 10 years. Alcohol: Would have approximately 1 glass of wine per day during much of her adult life. Prescription med abuse: No known prescription medication abuse Illicits: No known use of illicits . Psychosocial History Born in [place]. Spent much of adult life in [place]. Moved to the [facility] in March 2017 to be near her daughter. Patient attended high school. 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 The couple have 2 children--Joana Lane lives locally. Son lives in [place] where there are 3 grandchildren. . Spiritual/Cultural Factors Patient was born into a Caodaism tradition. Her father was very involved in the mosque. The patient says she is not interested at this time. "I have given up my samm. " . Living Will: Copy in medical record Health Care Surrogate: Copy in medical record Durable Power of Brush Maker Machine: Never completed Date completed: Living will was written in [place] and dated 05/29/2010 There is a notarized release of health care information from the [facility] that appears to double as a HCS document also dated 05/29/2010 . Health Care Surrogate(s): Charles Keen Joana Lane . Documented care wishes: [facility] Living Will -- patient would NOT want life prolonging measures if she is felt to be terminal or end stage or had a persistent vegetative state. . Today's verbally stated goals: Patient says she is getting tired of fighting. She is interested in hearing more about the burdens and benefits of continuing aggressive care vs transitioning to comfort measures only. . Family/friends goals: wants to support whatever the patient chooses. . Ethical and Legal Issues Patient is currently capacitated to make her own health care decisions. Should she become incapacitated her is listed as first surrogate. . Physical Exam Vital Signs Date Time Temp Pulse Resp B/P (MAP) Pulse Ox O2 Delivery O2 Flow Rate FiO2 03/07/18 08:09 96 High Flow Nasal Cannula 20.00 60 03/07/18 06:00 91 03/07/18 04:00 98.0 101 26 88/57 (67) 97 03/07/18 04:00 92 03/07/18 03:33 96 High Flow Nasal Cannula 20.00 60 03/07/18 02:00 101 03/07/18 00:00 101 03/07/18 00:00 97.8 101 24 89/52 (64) 100 03/06/18 22:00 115 03/06/18 20:00 114 03/06/18 20:00 98.0 118 22 102/57 (72) 98 03/06/18 19:56 96 Nasal Cannula 6.00 03/06/18 19:00 94 Nasal Cannula 7.00 03/06/18 16:00 97.9 103 23 116/95 (102) 95 Exam CONSTITUTIONAL/GENERAL: This is an adequately nourished patient, in no apparent distress. TUBES/LINES/DRAINS: SKIN: No jaundice, rashes, or lesions. Ecchymoses on upper extremities. No wounds seen anteriorly. Skin temperature appropriate. Not diaphoretic. HEAD: Atraumatic. Normocephalic. EYES: Pupils equal and round and reactive. Extraocular motions intact. No scleral icterus. No injection or drainage. Fundi not examined. ENT: Hearing grossly normal. Nose without bleeding or purulent drainage. Throat without visible erythema, exudates, masses, or lesions. NECK: Trachea midline. Supple, nontender. No palpable thyroid enlargement or nodularity. CARDIOVASCULAR: Regular rate and rhythm without murmurs, gallops, or rubs. No JVD. Peripheral pulses symmetric. RESPIRATORY/CHEST: Symmetric, unlabored respirations. Clear to auscultation. Breath sounds equal bilaterally. No wheezes, rales, or rhonchi. GASTROINTESTINAL: Abdomen soft, non-tender, nondistended. No hepato-splenomegaly , or palpable masses. No guarding. Bowel sounds present. GENITOURINARY: Without palpable bladder distension. Johnson catheter in place. MUSCULOSKELETAL: Extremities without clubbing, cyanosis, or edema. No joint tenderness or effusion noted. No calf tenderness. No mottling or clubbing. LYMPHATICS: No palpable cervical or supraclavicular adenopathy. NEUROLOGICAL: Awake and alert. Motor and sensory grossly within normal limits. Follows commands. Cognitively sharp. Moves all extremities. PSYCHIATRIC: No obvious anxiety/depression. no apparent hallucinations or other psychotic thought process. Diagnostic Tests Laboratory Laboratory Tests Test 03/05/18 12:50 03/05/18 13:50 03/06/18 00:23 03/06/18 11:22 White Blood Count 5.1 TH/MM3 (4.0-11.0) 5.1 TH/MM3 (4.0-11.0) Red Blood Count 3.58 MIL/MM3 (4.00-5.30) 3.28 MIL/MM3 (4.00-5.30) Hemoglobin 12.0 GM/DL (11.6-15.3) 11.6 GM/DL (11.6-15.3) Hematocrit 35.3 % (35.0-46.0) 31.7 % (35.0-46.0) Mean Corpuscular Volume 98.5 FL (80.0-100.0) 96.8 FL (80.0-100.0) Mean Corpuscular Hemoglobin 33.6 PG (27.0-34.0) 35.4 PG (27.0-34.0) Mean Corpuscular Hemoglobin Concent 34.1 % (32.0-36.0) 36.5 % (32.0-36.0) Red Cell Distribution Width 22.6 % (11.6-17.2) 22.5 % (11.6-17.2) Platelet Count 312 TH/MM3 (150-450) 249 TH/MM3 (150-450) Mean Platelet Volume 8.9 FL (7.0-11.0) 8.2 FL (7.0-11.0) Neutrophils (%) (Auto) 92.5 % (16.0-70.0) Lymphocytes (%) (Auto) 5.2 % (9.0-44.0) Monocytes (%) (Auto) 1.9 % (0.0-8.0) Eosinophils (%) (Auto) 0.3 % (0.0-4.0) Basophils (%) (Auto) 0.1 % (0.0-2.0) Neutrophils # (Auto) 4.7 TH/MM3 (1.8-7.7) Lymphocytes # (Auto) 0.3 TH/MM3 (1.0-4.8) Monocytes # (Auto) 0.1 TH/MM3 (0-0.9) Eosinophils # (Auto) 0.0 TH/MM3 (0-0.4) Basophils # (Auto) 0.0 TH/MM3 (0-0.2) CBC Comment DIFF FINAL AUTO DIFF Differential Comment FINAL DIFF MANUAL Blood Urea Nitrogen 14 MG/DL (7-18) 11 MG/DL (7-18) Creatinine 0.71 MG/DL (0.50-1.00) 0.52 MG/DL (0.50-1.00) Random Glucose 117 MG/DL (74-106) 92 MG/DL (74-106) Total Protein 5.9 GM/DL (6.4-8.2) 5.7 GM/DL (6.4-8.2) Albumin 2.2 GM/DL (3.4-5.0) 1.7 GM/DL (3.4-5.0) Calcium Level 7.9 MG/DL (8.5-10.1) 7.8 MG/DL (8.5-10.1) Magnesium Level 2.0 MG/DL (1.5-2.5) Alkaline Phosphatase 96 U/L (45-117) 86 U/L (45-117) Aspartate Amino Transf (AST/SGOT) 44 U/L (15-37) 23 U/L (15-37) Alanine Aminotransferase (ALT/SGPT) 27 U/L (10-53) 18 U/L (10-53) Total Bilirubin 1.1 MG/DL (0.2-1.0) 1.2 MG/DL (0.2-1.0) Sodium Level 136 MEQ/L (136-145) 140 MEQ/L (136-145) Potassium Level 4.3 MEQ/L (3.5-5.1) 3.5 MEQ/L (3.5-5.1) Chloride Level 99 MEQ/L (98-107) 104 MEQ/L (98-107) Carbon Dioxide Level 27.6 MEQ/L (21.0-32.0) 26.6 MEQ/L (21.0-32.0) Anion Gap 9 MEQ/L (5-15) 9 MEQ/L (5-15) Estimat Glomerular Filtration Rate 80 ML/MIN (>89) 115 ML/MIN (>89) Total Creatine Kinase 61 U/L (26-192) B-Type Natriuretic Peptide 24 PG/ML (0-100) 59 PG/ML (0-100) Lactic Acid Level 3.4 mmol/L (0.4-2.0) Blood Gas Puncture Site LT BRACHIAL Blood Gas Patient Temperature 98.6 Blood Gas HCO3 26 mmol/L (22-26) Blood Gas Base Excess 3.1 mmol/L (-2-2) Blood Gas Oxygen Saturation 97 % (90-100) Arterial Blood pH 7.51 (7.380-7.420) Arterial Blood Partial Pressure CO2 34 mmHg (38-42) Arterial Blood Partial Pressure O2 156 mmHg (61-120) Arterial Blood Oxygen Content 15.8 Vol % (12.0-20.0) Arterial Blood Carboxyhemoglobin 1.4 % (0-4) Arterial Blood Methemoglobin 1.2 % (0-2) Blood Gas Hemoglobin 11.4 G/DL (12.0-16.0) Oxygen Delivery Device NRB Blood Gas Liter Flow 15 L/M Blood Gas Inspired Oxygen 100 % Differential Total Cells Counted 100 Neutrophils % (Manual) 84 % (16-70) Band Neutrophils % 13 % (0-6) Lymphocytes % 2 % (9-44) Monocytes % 1 % (0-8) Neutrophils # (Manual) 4.9 TH/MM3 (1.8-7.7) Platelet Estimate NORMAL (NORMAL) Platelet Morphology Comment NORMAL (NORMAL) Troponin I LESS THAN 0.02 NG/ML Test 03/06/18 18:00 03/07/18 05:06 Nasal Screen MRSA (PCR) MRSA NOT DETECTED (NOT White Blood Count 3.8 TH/MM3 (4.0-11.0) Red Blood Count 2.67 MIL/MM3 (4.00-5.30) Hemoglobin 9.0 GM/DL (11.6-15.3) Hematocrit 26.1 % (35.0-46.0) Mean Corpuscular Volume 97.9 FL (80.0-100.0) Mean Corpuscular Hemoglobin 33.7 PG (27.0-34.0) Mean Corpuscular Hemoglobin Concent 34.5 % (32.0-36.0) Red Cell Distribution Width 22.5 % (11.6-17.2) Platelet Count 204 TH/MM3 (150-450) Mean Platelet Volume 8.9 FL (7.0-11.0) Neutrophils (%) (Auto) 93.0 % (16.0-70.0) Lymphocytes (%) (Auto) 4.3 % (9.0-44.0) Monocytes (%) (Auto) 2.5 % (0.0-8.0) Eosinophils (%) (Auto) 0.1 % (0.0-4.0) Basophils (%) (Auto) 0.1 % (0.0-2.0) Neutrophils # (Auto) 3.5 TH/MM3 (1.8-7.7) Lymphocytes # (Auto) 0.2 TH/MM3 (1.0-4.8) Monocytes # (Auto) 0.1 TH/MM3 (0-0.9) Eosinophils # (Auto) 0.0 TH/MM3 (0-0.4) Basophils # (Auto) 0.0 TH/MM3 (0-0.2) CBC Comment DIFF FINAL Differential Comment Blood Urea Nitrogen 11 MG/DL (7-18) Creatinine 0.53 MG/DL (0.50-1.00) Random Glucose 225 MG/DL (74-106) Total Protein 4.8 GM/DL (6.4-8.2) Albumin 1.6 GM/DL (3.4-5.0) Calcium Level 7.8 MG/DL (8.5-10.1) Alkaline Phosphatase 65 U/L (45-117) Aspartate Amino Transf (AST/SGOT) 16 U/L (15-37) Alanine Aminotransferase (ALT/SGPT) 16 U/L (10-53) Total Bilirubin 0.6 MG/DL (0.2-1.0) Sodium Level 141 MEQ/L (136-145) Potassium Level 3.7 MEQ/L (3.5-5.1) Chloride Level 107 MEQ/L (98-107) Carbon Dioxide Level 27.7 MEQ/L (21.0-32.0) Anion Gap 6 MEQ/L (5-15) Estimat Glomerular Filtration Rate 113 ML/MIN (>89) Result Diagram: 03/07/18 0506 03/07/18 0506 Microbiology Microbiology Date/Time Source Procedure Growth Status 03/05/18 14:00 Blood Peripheral Aerobic Blood Culture - Preliminary NO GROWTH IN 1 DAY Resulted 03/05/18 14:00 Blood Peripheral Anaerobic Blood Culture - Preliminary NO GROWTH IN 1 DAY Resulted 03/05/18 13:50 Blood Peripheral Aerobic Blood Culture - Preliminary NO GROWTH IN 1 DAY Resulted 03/05/18 13:50 Blood Peripheral Anaerobic Blood Culture - Preliminary NO GROWTH IN 1 DAY Resulted Imaging Last Impressions Chest X-Ray 03/06/18 0821 Signed Impressions: CONCLUSION: No significant interval change with the bilateral pulmonary infiltrates. . Procedures * Pig-tail catheter placement with thoracentesis . Patient/Family Conference Present at Family Conference: Patient and . . Family Conference Time (mins): 55 Family Conference Location: Bedside Issues Discussed: * Palliative care role, purpose, approach * Additional medical, psychosocial, and spiritual history * Patients general health, functional status, and cognitive changes in the months leading up to the current hospitalization * Patient/family understanding of the current medical problems * Patient/family understanding of prognosis * Patients goals of care as best understood from advance directives and/or conversations and/or values * Current medical treatment options and benefits/burdens of those options * Likely scenarios comparing ongoing aggressive care with a transition to comfort measures only * Questions answered to the best of my ability * Resuscitation status discussed. . Assessment and Plan Disease Oriented Problem List: (1) Breast cancer in female Comment: Metastatic to lungs, nodes, skin, choroid, liver, bone . 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 . (3) Respiratory failure (4) Bilateral pneumonia (5) Hypoalbuminemia (6) Cachexia (7) Anxiety (8) Pain Symptom Scale: (1) Pain (2) Dyspnea (3) Anxiety Pertinent Non-Medical Issues Psychosocial: Supported locally by and daughter. There is also a son and grandchildren in [place]. Spiritual: Caodaism upbringing. She is not interested in spiritual support at this time -- "I have lost my samm." Legal: Advance directives already scanned into EMR Ethical issues impacting care: Patient is currently capacitated to make her own health care decisions. . Prognosis Patient had widely metastatic cancer, has been declining in spite of chemotherapy, and has severe under-nutrition. Life expectancy is probably in the order of weeks to a few months even with aggressive therapy. Pt is appropriate for hospice care at such time that goals become more comfort oriented. . Code Status: No Code Plan == Code Status: Code status was changed to NO CODE per patients request on . was present at bedside when this decision was made. == Decision Making: Patient is currently capacitated to make her own health care decisions. Should she become incapacitated her and two children are listed as surrogates. == Goals of medical treatment: Patient is getting exhausted battling this illness. She doesn't want to continue fighting if the doctors don't think she is likely to get improved quality of life. She has additional questions for her oncologist to help her weigh the benefits/burdens of ongoing aggressive treatment. == Symptoms: * Pain: She has a few different pain syndromes. She gets some vague generalized pain following chemotherapy which responds well to an unknown dose of oxycodone. She also has some osteoarthritis type pain particularly in the shoulders. * Dyspnea: Severe with her pleural effusions. Relieved by thoracentesis. Now breathing relatively comfortably on high flow 02. Considering placement of Pleurevac vs undergoing another pleurodesis. * Anxiety: Longstanding problem made worse by facing her own mortality. Dyspnea exacerbates anxiety. Helped by alprazolam * Cachexia: Very poor appetite. == Case discussed with Dr. Gore before and after I met with patient and her . == Possibly the best method of keeping symptoms well managed, giving her the best quality of time at home , and honoring her goals would be to go through with either pleurodesis or Pleurevac placement while here in hospital, then send home under hospice care. == Patient and have requested a hospice consult to better understand hospice services. I have placed the consult order. == Palliative care will continue to follow to assist with symptom management and to further clarify goals of medical treatment as the clinical course evolves. . Thank you for the opportunity to participate in the care of Ms. Keen. Doug Toney MD March 07, 2018 10:15
--- NOTE | 2018-03-07 10:18 | HHI.PR ---
Subjective Remarks Rapid decline in respiratory status yesterday. In ICU now, chest tube placed. Respiratory status improved today, but remains on high flow oxygen. Etiology of respiratory declien is related to cancer vs. infectious (or both). Objective Vital Signs Date Time Temp Pulse Resp B/P (MAP) Pulse Ox O2 Delivery O2 Flow Rate FiO2 03/07/18 08:09 96 High Flow Nasal Cannula 20.00 60 03/07/18 06:00 91 03/07/18 04:00 98.0 101 26 88/57 (67) 97 03/07/18 04:00 92 03/07/18 03:33 96 High Flow Nasal Cannula 20.00 60 03/07/18 02:00 101 03/07/18 00:00 101 03/07/18 00:00 97.8 101 24 89/52 (64) 100 03/06/18 22:00 115 03/06/18 20:00 114 03/06/18 20:00 98.0 118 22 102/57 (72) 98 03/06/18 19:56 96 Nasal Cannula 6.00 03/06/18 19:00 94 Nasal Cannula 7.00 03/06/18 16:00 97.9 103 23 116/95 (102) 95 I/O 03/06/18 03/06/18 03/06/18 03/07/18 03/07/18 03/07/18 07:00 15:00 23:00 07:00 15:00 23:00 Intake Total 120 ml 100 ml 320 ml Output Total 500 ml 600 ml Balance -380 ml 100 ml -280 ml Intake Oral 120 ml 320 ml IV Total 100 ml Output Urine Total 500 ml 450 ml Chest Tube Drainage Total 150 ml # Voids 1 # Bowel Movements 1 0 Result Diagram: 03/07/18 0506 03/07/18 0506 Objective Remarks GENERAL: NAD, A&Ox3 HEAD: Normocephalic. NECK: Supple, trachea midline. No lymphadenopathy. EYES: No scleral icterus. No injection or drainage. CARDIOVASCULAR: Regular rate and rhythm without murmurs, gallops, or rubs. RESPIRATORY: Breath sounds equal bilaterally. No accessory muscle use. GASTROINTESTINAL: Abdomen soft, non-tender, nondistended. MUSCULOSKELETAL: No cyanosis, or edema. SKIN: Warm and dry. NEURO: No focal neurological deficitis. A/P Problem List: (1) Respiratory failure ICD Code: J96.90 - Respiratory failure, unspecified, unspecified whether with hypoxia or hypercapnia (2) Severe sepsis ICD Code: A41.9 - Sepsis, unspecified organism; R65.20 - Severe sepsis without septic shock (3) Sepsis ICD Code: A41.9 - Sepsis, unspecified organism (4) SIRS (systemic inflammatory response syndrome) ICD Code: R65.10 - Systemic inflammatory response syndrome (SIRS) of non- infectious origin without acute organ dysfunction Status: Acute (5) Bilateral pneumonia ICD Code: J18.9 - Pneumonia, unspecified organism Status: Acute (6) Hypoxia ICD Code: R09.02 - Hypoxemia Status: Acute Assessment and Plan 72-year-old female admitted secondary to bilateral pneumonia with immunocompromise and severe sepsis Acute respiratory failure Pleural effusion Etiology may be related to cancer or infection of both Patient had been transferred to ICU yesterday Continue to monitor in ICU Chest tube was placed and has helped Cytology and cultures ordered for chest tube fluid Severe sepsis Tachycardia Tachypnea Lactic acidosis Improvement is seen in these factors Follow on telemetry Oxygen as needed IV hydration Monitor renal function and liver function Monitor vital signs closely Bilateral pneumonia Increased risk in setting of immunocompromise cefepime Azithromycin Vancomycin ID following Follow pulse ox Oxygen as needed Probiotic 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
[2018-03-07] MEDS: AZITHROMYCIN 250 MG TAB PO SCH (14:26)
--- NOTE | 2018-03-07 15:51 | PD.ONC.PN ---
Subjective Subjective Remarks remains weak, debilitated and sob. Objective Data Date Time Temp Pulse Resp B/P (MAP) Pulse Ox O2 Delivery O2 Flow Rate FiO2 03/07/18 08:09 96 High Flow Nasal Cannula 20.00 60 03/07/18 06:00 91 03/07/18 04:00 98.0 101 26 88/57 (67) 97 03/07/18 04:00 92 03/07/18 03:33 96 High Flow Nasal Cannula 20.00 60 03/07/18 02:00 101 03/07/18 00:00 101 03/07/18 00:00 97.8 101 24 89/52 (64) 100 03/06/18 22:00 115 03/06/18 20:00 114 03/06/18 20:00 98.0 118 22 102/57 (72) 98 03/06/18 19:56 96 Nasal Cannula 6.00 03/06/18 19:00 94 Nasal Cannula 7.00 03/06/18 16:00 97.9 103 23 116/95 (102) 95 03/07/18 03/07/18 03/07/18 07:00 15:00 23:00 Intake Total 320 ml Output Total 600 ml Balance -280 ml Result Diagram: 03/07/18 0506 03/07/18 0506 Laboratory Results Laboratory Tests Test 03/06/18 18:00 03/07/18 05:06 Nasal Screen MRSA (PCR) MRSA NOT DETECTED White Blood Count 3.8 TH/MM3 Red Blood Count 2.67 MIL/MM3 Hemoglobin 9.0 GM/DL Hematocrit 26.1 % Mean Corpuscular Volume 97.9 FL Mean Corpuscular Hemoglobin 33.7 PG Mean Corpuscular Hemoglobin Concent 34.5 % Red Cell Distribution Width 22.5 % Platelet Count 204 TH/MM3 Mean Platelet Volume 8.9 FL Neutrophils (%) (Auto) 93.0 % Lymphocytes (%) (Auto) 4.3 % Monocytes (%) (Auto) 2.5 % Eosinophils (%) (Auto) 0.1 % Basophils (%) (Auto) 0.1 % Neutrophils # (Auto) 3.5 TH/MM3 Lymphocytes # (Auto) 0.2 TH/MM3 Monocytes # (Auto) 0.1 TH/MM3 Eosinophils # (Auto) 0.0 TH/MM3 Basophils # (Auto) 0.0 TH/MM3 CBC Comment DIFF FINAL Differential Comment Blood Urea Nitrogen 11 MG/DL Creatinine 0.53 MG/DL Random Glucose 225 MG/DL Total Protein 4.8 GM/DL Albumin 1.6 GM/DL Calcium Level 7.8 MG/DL Alkaline Phosphatase 65 U/L Aspartate Amino Transf (AST/SGOT) 16 U/L Alanine Aminotransferase (ALT/SGPT) 16 U/L Total Bilirubin 0.6 MG/DL Sodium Level 141 MEQ/L Potassium Level 3.7 MEQ/L Chloride Level 107 MEQ/L Carbon Dioxide Level 27.7 MEQ/L Anion Gap 6 MEQ/L Estimat Glomerular Filtration Rate 113 ML/MIN Culture Results Microbiology Date/Time Source Procedure Growth Status 03/05/18 14:00 Blood Peripheral Aerobic Blood Culture - Preliminary NO GROWTH IN 2 DAYS Resulted 03/05/18 14:00 Blood Peripheral Anaerobic Blood Culture - Preliminary NO GROWTH IN 2 DAYS Resulted 03/05/18 13:50 Blood Peripheral Aerobic Blood Culture - Preliminary NO GROWTH IN 2 DAYS Resulted 03/05/18 13:50 Blood Peripheral Anaerobic Blood Culture - Preliminary NO GROWTH IN 2 DAYS Resulted 03/07/18 14:30 Fluid Pleural Fluid Gram Stain Pending Received 03/07/18 14:30 Fluid Pleural Fluid Body Fluid Culture Pending Received Administered Medications Medications (Trade) Dose Ordered Sig/Betty Route PRN Reason Start Time Stop Time Status Last Admin Dose Admin Enoxaparin Sodium (Lovenox Inj) 40 mg Q24H SQ 03/05/18 16:00 03/06/18 17:35 Senna/Docusate Sodium (Camille-Colace) 1 tab BID PO 03/05/18 21:00 03/07/18 09:29 Cefepime HCl 2000 mg/Sodium Chloride 100 ml @ 200 mls/hr Q8H IV 03/05/18 22:00 03/07/18 14:26 Azithromycin (Zithromax) 500 mg Q24H PO 03/06/18 15:00 03/07/18 14:26 Albuterol/ Ipratropium (Duoneb Neb) 1 ampule Q4HR NEB PRN NEB SOB/WHEEZING 03/05/18 15:15 03/06/18 00:55 Sodium Chloride (NS Flush) 2 ml BID IV FLUSH 03/05/18 21:00 03/07/18 08:27 Lactobacillus Acidophilus (Lactinex) 1 tab TID PO 03/05/18 18:00 03/07/18 14:26 Calcium Carbonate (Tums Chew) 500 mg Q2H PRN CHEW indigestion 03/05/18 21:15 03/05/18 21:26 Benzonatate (Tessalon) 100 mg TID PRN PO cough 03/05/18 21:45 03/05/18 22:04 Alprazolam (Xanax) 0.5 mg HS PO 03/05/18 21:45 03/06/18 21:12 Acetaminophen (Tylenol) 650 mg Q4H PRN PO fever 03/06/18 00:45 03/06/18 01:01 Methylprednisolone Sodium Succinate (SoluMEDROL INJ) 40 mg Q6H IV PUSH 03/06/18 09:00 03/07/18 14:27 Dextrose/Sodium Chloride 1,000 ml @ 84 mls/hr [id number] IV 03/06/18 12:00 03/07/18 08:26 Albuterol/ Ipratropium (Duoneb Neb) 1 ampule Q4HR NEB NEB 03/06/18 12:00 03/07/18 11:54 Alprazolam (Xanax) 0.5 mg Q6H PRN PO anxiety 03/06/18 14:00 03/06/18 21:12 Quetiapine Fumarate (SEROquel) 25 mg BID PO 03/06/18 14:00 03/07/18 09:29 Miscellaneous Information ([facility] [place] [facility]) Patient in critical care unit? Ass... [id number] 03/06/18 23:15 03/06/18 23:15 Chlorhexidine Gluconate (Chlorhexidine 2% Cloth) 3 pack DAILY@04 TOPICAL 03/07/18 04:00 03/11/18 04:01 03/07/18 04:00 Objective Remarks GENERAL: emaciated and terminally ill SKIN: multiple subcut mets over scalp, chest, axilla, etc. HEAD: bald. EYES: No scleral icterus. No injection or drainage. NECK: Supple, trachea midline. No JVD or lymphadenopathy. LYMPHATIC: No adenopathy. CARDIOVASCULAR: Regular rate and rhythm without murmurs. RESPIRATORY: decreased sounds at bases and ronchi. sob with speech. GASTROINTESTINAL: Abdomen soft, distended. liver not palpable today EXTREMITIES: no edema MUSCULOSKELETAL: severe muscle wasting. NEUROLOGICAL: No obvious focal deficit. Awake, alert, and oriented x3. PSYCHIATRIC: sad, resigned and insightful today Assessment/Plan Assessment 1: she is dying and I do not believe there are additional treatments available. She has had extensive hormonal therapy and recently multiple cycles of weekly Taxol. She continues to wither and now is not far from . She can not tolerate further chemotherapy. She has had multiple thoracentesis and the fluid reaccumulates in days. She is too frail for a pleurodesis and would strongly recommend a PleurX catheter which will be well tolerated and can be managed at home. I have spoken with Dr. Toney several times today and we both feel this is the route to take. Her daughter was present and will relay the discussion to the other family members who are not present. The patient is for the first time accepting of hospice, home care and no further chemotherapy of hormonal therapy. Plan 1: hospice 2: no CPR 3: pleurex catheter and no pleurodesis. 4 home with hospice after stable or if not stable would consider hospice care center. she can go home on po antibiotics. I doubt she has pneumonia as there has been no fever or sputum production and suspect the respiratory problems due to the cancer and malignant effusions. total time including discussions 50 minutes. Joseph Gore MD March 07, 2018 15:51
--- NOTE | 2018-03-07 18:19 | HHI.PR ---
Subjective Remarks 72 YOWF with Metastatic ca, malig pl eff,s/p left pleurodesis Mild sob Rt chest tube draining DW pt has decided for hospice Objective Vital Signs Vital Signs Date Time Temp Pulse Resp B/P (MAP) Pulse Ox O2 Delivery O2 Flow Rate FiO2 03/07/18 08:09 96 High Flow Nasal Cannula 20.00 60 03/07/18 06:00 91 03/07/18 04:00 98.0 101 26 88/57 (67) 97 03/07/18 04:00 92 03/07/18 03:33 96 High Flow Nasal Cannula 20.00 60 03/07/18 02:00 101 03/07/18 00:00 101 03/07/18 00:00 97.8 101 24 89/52 (64) 100 03/06/18 22:00 115 03/06/18 20:00 114 03/06/18 20:00 98.0 118 22 102/57 (72) 98 03/06/18 19:56 96 Nasal Cannula 6.00 03/06/18 19:00 94 Nasal Cannula 7.00 I/O 03/06/18 03/06/18 03/06/18 03/07/18 03/07/18 03/07/18 07:00 15:00 23:00 07:00 15:00 23:00 Intake Total 120 ml 100 ml 320 ml Output Total 500 ml 600 ml Balance -380 ml 100 ml -280 ml Intake Oral 120 ml 320 ml IV Total 100 ml Output Urine Total 500 ml 450 ml Chest Tube Drainage Total 150 ml # Voids 1 # Bowel Movements 1 0 Result Diagram: 03/07/18 0506 03/07/18 0506 Objective Remarks GENERAL: Thin built WF, mild sob SKIN: Warm and dry. HEAD: Normocephalic. EYES: No scleral icterus. No injection or drainage. NECK: Supple, trachea midline. No JVD or lymphadenopathy. CARDIOVASCULAR: Regular rate and rhythm without murmurs, gallops, or rubs. RESPIRATORY: Breath sounds equal bilaterally. No accessory muscle use. Rt chest tube draining GASTROINTESTINAL: Abdomen soft, non-tender, nondistended. MUSCULOSKELETAL: No cyanosis, or edema. BACK: Nontender without obvious deformity. No CVA tenderness. A/P Assessment and Plan Malig pleural effusion Dysnoea Metastatic ca Weight loss PLAN: DW pt and her daughter Wants to proceed with Pleurex Hospice consulted Will Clamp chest tube IR for Right chest pleurex cathetor placement Yohannes Barrera MD March 07, 2018 18:19
[2018-03-07] MEDS: ENOXAPARIN SODIUM 40 MG/0.4 ML SYRINGE SQ SCH (20:31)
[2018-03-07] MEDS: ALPRAZolam 0.5 MG TAB PO SCH (20:32)
[2018-03-07] MEDS: ALPRAZolam 0.5 MG TAB PO PRN (20:32)
[2018-03-07] MEDS ORDERED: BENZOCAINE 6 MG/MENTHOL 10 MG LOZENGE BUCCAL PRN (23:30)
[2018-03-07] MEDS ORDERED: ZOLPIDEM TARTRATE 5 MG TAB PO ONE (23:30)
[2018-03-08] VITALS (21 sets, daily range): BP systolic 105–123; BP diastolic 62–91; PULSE 84–100; RESP 30–32; TEMP 99; O2SAT 91–100
[2018-03-08] MEDS: methylPREDNISolone SOD SUCC 40 MG/1 ML VIAL IV PUSH SCH ×4 (03:04→20:53)
[2018-03-08] MEDS: RESP: ALBUTEROL 2.5 MG/IPRATROPIUM 0.5 MG NEB (SCH) NEB ×5 (03:44→20:36)
[2018-03-08] MEDS: CHLORHEXIDINE GLUCONATE 2 % 1 PACK (2 CLOTHS)(taper/protocol) TOPICAL SCH (04:00)
[2018-03-08 05:52] LABS: AUTOMATED NEUTROPHIL # 5.4 TH/MM3 (1.8-7.7); BASOPHIL % 0.1 % (0.0-2.0); HEMATOCRIT 27.4 % (35.0-46.0); HEMOGLOBIN 9.6 GM/DL (11.6-15.3); LYMPH % 3.5 % (9.0-44.0); LYMPHOCYTE # 0.2 TH/MM3 (1.0-4.8); MEAN CELL VOLUME 97.2 FL (80.0-100.0); MEAN CORPUSCULAR HGB CONC 34.9 % (32.0-36.0); MEAN PLATELET VOLUME 8.7 FL (7.0-11.0); MONO % 4.2 % (0.0-8.0); MONOCYTE # 0.2 TH/MM3 (0-0.9); NEUT % 92.2 % (16.0-70.0); PLATELET COUNT 233 TH/MM3 (150-450); RED BLOOD COUNT 2.82 MIL/MM3 (4.00-5.30); RED CELL DISTRIBUTION WIDTH 22.2 % (11.6-17.2); WHITE BLOOD COUNT 5.8 TH/MM3 (4.0-11.0)
[2018-03-08] MEDS: CEFEPIME INJ 2,000 MG in SODIUM CHLORIDE 0.9% INJ 100 ML IV SCH ×3 (06:00→20:53)
[2018-03-08 06:16] LABS: ALBUMIN 1.5 GM/DL (3.4-5.0); AST (GOT) 20 U/L (15-37); BLOOD UREA NITROGEN 14 MG/DL (7-18); CALCIUM 7.8 MG/DL (8.5-10.1); CHLORIDE 108 MEQ/L (98-107); CREATININE 0.56 MG/DL (0.50-1.00); GLOMERULAR FILTRATION RATE 106 ML/MIN (>89); GLUCOSE,RANDOM 207 MG/DL (74-106); SODIUM (NA) 141 MEQ/L (136-145)
[2018-03-08 06:18] LABS: ALT (GPT) 22 U/L (10-53)
[2018-03-08 06:20] LABS: ALKALINE PHOSPHATASE 69 U/L (45-117); TOTAL BILIRUBIN ADULT 0.3 MG/DL (0.2-1.0); TOTAL PROTEIN 4.6 GM/DL (6.4-8.2)
[2018-03-08] MEDS ORDERED: POTASSIUM CHLORIDE 20 MEQ PWD PACKET PO ONE (08:00)
[2018-03-08] MEDS: DOCUSATE SODIUM 50 MG/SENNA 8.6 MG TAB PO SCH ×2 (08:25→20:55)
[2018-03-08] MEDS: QUEtiapine FUMARATE 25 MG TAB PO SCH ×2 (08:25→20:53)
[2018-03-08] MEDS: SODIUM CHLORIDE 0.9% FLUSH 10 ML FLUSH IV FLUSH SCH ×2 (08:25→20:54)
[2018-03-08] MEDS: LACTOBACILLUS ACIDOPHILUS TAB PO SCH ×3 (08:25→18:00)
--- NOTE | 2018-03-08 09:13 | HHI.PR ---
Subjective Remarks Continued need for high flow oxygen. Patient is able to rest without respiratory distress, as long as high flow oxygen in place. Cultures and cytology pending. Objective Vital Signs Date Time Temp Pulse Resp B/P (MAP) Pulse Ox O2 Delivery O2 Flow Rate FiO2 03/08/18 08:00 86 03/08/18 08:00 86 32 106/62 (77) 94 03/08/18 07:59 94 High Flow Nasal Cannula 60.00 65 03/08/18 07:00 84 03/08/18 07:00 84 30 105/64 (78) 91 03/08/18 04:00 97 03/08/18 02:00 100 03/08/18 00:00 97 114/72 (86) 94 03/08/18 00:00 97 03/07/18 23:00 108 104/70 (81) 84 03/07/18 22:00 101 110/64 (79) 92 03/07/18 22:00 100 03/07/18 21:00 103 115/62 (79) 92 03/07/18 20:00 102 03/07/18 20:00 [employer] [place] 20.00 60 03/07/18 20:00 97.8 102 32 111/68 (82) 93 03/07/18 18:00 [employer] [place] 20.00 60 03/07/18 16:00 98.0 101 26 88/57 (67) 97 03/07/18 16:00 92 I/O 03/07/18 03/07/18 03/07/18 03/08/18 03/08/18 03/08/18 07:00 15:00 23:00 07:00 15:00 23:00 Intake Total 320 ml 460 ml 1968 ml Output Total 600 ml Balance -280 ml 460 ml 1968 ml Intake Oral 320 ml 360 ml 960 ml IV Total 100 ml 1008 ml Output Urine Total 450 ml Chest Tube Drainage Total 150 ml # Voids 3 4 # Bowel Movements 0 0 0 Result Diagram: 03/08/1853503/08/18 05 Objective Remarks GENERAL: NAD, A&Ox3 HEAD: Normocephalic. NECK: Supple, trachea midline. No lymphadenopathy. EYES: No scleral icterus. No injection or drainage. CARDIOVASCULAR: Regular rate and rhythm without murmurs, gallops, or rubs. RESPIRATORY: Breath sounds equal bilaterally. No accessory muscle use. GASTROINTESTINAL: Abdomen soft, non-tender, nondistended. MUSCULOSKELETAL: No cyanosis, or edema. SKIN: Warm and dry. NEURO: No focal neurological deficitis. A/P Problem List: (1) Respiratory failure ICD Code: J96.90 - Respiratory failure, unspecified, unspecified whether with hypoxia or hypercapnia (2) Severe sepsis ICD Code: A41.9 - Sepsis, unspecified organism; R65.20 - Severe sepsis without septic shock (3) Sepsis ICD Code: A41.9 - Sepsis, unspecified organism (4) SIRS (systemic inflammatory response syndrome) ICD Code: R65.10 - Systemic inflammatory response syndrome (SIRS) of non- infectious origin without acute organ dysfunction Status: Acute (5) Bilateral pneumonia ICD Code: J18.9 - Pneumonia, unspecified organism Status: Acute (6) Hypoxia ICD Code: R09.02 - Hypoxemia Status: Acute Assessment and Plan 72-year-old female admitted secondary to bilateral pneumonia with immunocompromise and severe sepsis Continue to monitor in ICU. Monitor pulse ox. Continue high flow oxygen. Follow CBC and BMP. Follow cultures. Follow cytology. Acute respiratory failure Pleural effusion Etiology may be related to cancer or infection of both Patient had been transferred to ICU yesterday Continue to monitor in ICU Chest tube was placed and has helped Cytology and cultures ordered for chest tube fluid Severe sepsis Tachycardia Tachypnea Lactic acidosis Improvement is seen in these factors Follow on telemetry Oxygen as needed IV hydration Monitor renal function and liver function Monitor vital signs closely Bilateral pneumonia Increased risk in setting of immunocompromise cefepime Azithromycin Vancomycin ID following Follow pulse ox Oxygen as needed Probiotic Bilateral breast cancer Metastatic cancer to bone Metastatic cancer to liver Active chemotherapy Immunocompromise Lack of leukocytosis in this present state is likely related to immunocompromise and chemotherapy treatments on hold for now, during infection treatment Oncology following General anxiety disorder Depression Hypothyroidism No change to baseline treatments Follow clinically DVT prophylaxis SCDs Lovenox Problem Qualifiers (1) Bilateral pneumonia: Qualified Codes: J18.9 - Pneumonia, unspecified organism Hussein Simpson MD March 08, 2018 09:13
[2018-03-08] MEDS: DEXT 5%-NACL 0.9% 1000 ML INJ 1,000 ML IV SCH ×2 (11:40→21:06)
--- NOTE | 2018-03-08 12:05 | HHI.IDPN ---
Subjective Subjective Remarks Patient is a 72-year-old female, with known metastatic breast cancer, has metastases to the lungs liver and bone, presented to the hospital with worsening shortness of breath. Patient has had problem with recurrent bilateral pleural effusions, and had a surgical procedure done on the left side with pleurodesis with improvement on her left sided pleural effusion. She continues to have recurrent right-sided pleural effusion, and she gets therapeutic thoracentesis done. The last time it was done was February 28. According to the patient the day after the procedure she started getting short of breath again, and it had progressively worsened. She has had some dry cough. She has not had any nausea or vomiting, denies any urinary complaints. She usually has liquid stool but has a bowel movement at least 1-2 a day. She felt feverish. She presented to the hospital, and her chest x-ray showed bilateral pulmonary infiltrates, and has not shown recurrent effusion on the right side. She was febrile overnight. She was on 10 L of nasal O2, however this morning her sats were in the high 70s, and she is currently on a nonrebreather mask. She has saturation ranging between 89-94. She is complaining of significant worsening of her shortness of breath. Patient lives with the and the has no respiratory problem. She has not been around any pets or any sick children. Infectious disease consultation has been requested to evaluate the patient. Notes reviewed D/W RN Going to IR today - CT to be changed to pleurex Has CT R - initially put out 1200 ml On high flow nasal O2 Afebrile Palliative medicine notes reviewed Hospice has been consulted Antibiotics Cefepime Zithromax Current Medications Medications (Trade) Dose Ordered Sig/Betty Route Start Time Stop Time Status Last Admin (Reglan Inj) 5 mg Q6H PRN IV PUSH 03/05/18 15:15 (Lovenox Inj) 40 mg Q24H SQ 03/05/18 16:00 03/07/18 20:31 (Camille-Colace) 1 tab BID PO 03/05/18 21:00 03/07/18 09:29 (Senokot) 17.2 mg Q12H PRN PO 03/05/18 15:15 (Dulcolax Supp) 10 mg DAILY PRN RECTAL 03/05/18 15:15 (Lactulose Liq) 30 ml DAILY PRN PO 03/05/18 15:15 Cefepime HCl 2000 mg/Sodium Chloride 100 ml @ 200 mls/hr Q8H IV 03/05/18 22:00 03/08/18 06:00 (Zithromax) 500 mg Q24H PO 03/06/18 15:00 03/07/18 14:26 (Duoneb Neb) 1 ampule Q4HR NEB PRN NEB 03/05/18 15:15 03/06/18 00:55 (NS Flush) 2 ml UNSCH PRN IV FLUSH 03/05/18 16:30 (NS Flush) 2 ml BID IV FLUSH 03/05/18 21:00 03/08/18 08:25 (Zofran Inj) 4 mg Q6H PRN IVP 03/05/18 16:30 (Falcon 5-325 Mg) 1 tab Q4H PRN PO 03/05/18 16:30 (Falcon 10-325 Mg) 1 tab Q4H PRN PO 03/05/18 16:30 03/07/18 22:04 (Narcan Inj) 0.4 mg UNSCH PRN IV PUSH 03/05/18 16:30 (Milk Of Magnesia Liq) 30 ml Q12H PRN PO 03/05/18 16:30 (Lactinex) 1 tab TID PO 03/05/18 18:00 03/08/18 08:25 (Tums Chew) 500 mg Q2H PRN CHEW 03/05/18 21:15 03/05/18 21:26 (Tessalon) 100 mg TID PRN PO 03/05/18 21:45 03/05/18 22:04 (Xanax) 0.5 mg HS PO 03/05/18 21:45 03/07/18 20:32 (Tylenol) 650 mg Q4H PRN PO 03/06/18 00:45 03/06/18 01:01 (SoluMEDROL INJ) 40 mg Q6H IV PUSH 03/06/18 09:00 03/08/18 08:25 Dextrose/Sodium Chloride 1,000 ml @ 84 mls/hr [id number] IV 03/06/18 12:00 03/07/18 20:31 (Duoneb Neb) 1 ampule Q4HR NEB NEB 03/06/18 12:00 03/08/18 07:58 (Xanax) 0.5 mg Q6H PRN PO 03/06/18 14:00 03/07/18 20:32 (SEROquel) 25 mg BID PO 03/06/18 14:00 03/08/18 08:25 ([facility] [place] [facility] [place] in [place] care unit? Ass... [id number] .XX 03/06/18 23:15 03/06/18 23:15 (Chlorhexidine 2% Cloth) 3 pack DAILY@04 TOPICAL 03/07/18 04:00 03/11/18 04:01 03/07/18 04:00 (Chlorhexidine 2% Cloth) 3 pack UNSCH PRN TOPICAL 03/06/18 23:15 03/11/18 23:02 (Chloraseptic J[place]) 1 lozenge UNSCH PRN BUCCAL 03/07/18 23:30 Lines PIV Past Medical History Breast Cancer Metastatic cancer to liver Metastatic cancer to bone Active Chemotherapy General anxiety disorder Depression Hypothyroidism Past Surgical History Right leg fracture repair Right kidney stent Mastectomy right, and reconstructive surgery on the right breast [id number] placement Tonsillectomy Abdominal hernia repair Surgery on the left chest for recurrent pleural effusion Multiple thoracenteses Allergies: Coded Allergies: No Known Allergies (Unverified , 03/05/18) Objective . Vital Signs Date Time Temp Pulse Resp B/P (MAP) Pulse Ox O2 Delivery O2 Flow Rate FiO2 03/08/18 08:51 92 [employer] 65 03/08/18 08:00 86 03/08/18 08:00 86 32 106/62 (77) 94 03/08/18 07:59 94 High Flow Nasal Cannula 60.00 65 03/08/18 07:00 84 03/08/18 07:00 84 30 105/64 (78) 91 03/08/18 04:00 97 03/08/18 02:00 100 03/08/18 00:00 97 114/72 (86) 94 03/08/18 00:00 97 03/07/18 23:00 108 104/70 (81) 84 03/07/18 22:00 101 110/64 (79) 92 03/07/18 22:00 100 03/07/18 21:00 103 115/62 (79) 92 5/28/18 20:00 102 03/07/18 20:00 [employer] 20.00 60 03/07/18 20:00 97.8 102 32 111/68 (82) 93 03/07/18 18:00 [employer] 20.00 60 03/07/18 16:00 98.0 101 26 88/57 (67) 97 03/07/18 16:00 92 . Laboratory Tests Test 03/07/18 05:06 03/08/18 05:36 White Blood Count 3.8 TH/MM3 5.8 TH/MM3 Red Blood Count 2.67 MIL/MM3 2.82 MIL/MM3 Hemoglobin 9.0 GM/DL 9.6 GM/DL Hematocrit 26.1 % 27.4 % Mean Corpuscular Volume 97.9 FL 97.2 FL Mean Corpuscular Hemoglobin 33.7 PG 34.0 PG Mean Corpuscular Hemoglobin Concent 34.5 % 34.9 % Red Cell Distribution Width 22.5 % 22.2 % Platelet Count 204 TH/MM3 233 TH/MM3 Mean Platelet Volume 8.9 FL 8.7 FL Neutrophils (%) (Auto) 93.0 % 92.2 % Lymphocytes (%) (Auto) 4.3 % 3.5 % Monocytes (%) (Auto) 2.5 % 4.2 % Eosinophils (%) (Auto) 0.1 % 0.0 % Basophils (%) (Auto) 0.1 % 0.1 % Neutrophils # (Auto) 3.5 TH/MM3 5.4 TH/MM3 Lymphocytes # (Auto) 0.2 TH/MM3 0.2 TH/MM3 Monocytes # (Auto) 0.1 TH/MM3 0.2 TH/MM3 Eosinophils # (Auto) 0.0 TH/MM3 0.0 TH/MM3 Basophils # (Auto) 0.0 TH/MM3 0.0 TH/MM3 CBC Comment DIFF FINAL DIFF FINAL Differential Comment Laboratory Tests Test 03/07/18 05:06 03/08/18 05:36 Blood Urea Nitrogen 11 MG/DL 14 MG/DL Creatinine 0.53 MG/DL 0.56 MG/DL Random Glucose 225 MG/DL 207 MG/DL Total Protein 4.8 GM/DL 4.6 GM/DL Albumin 1.6 GM/DL 1.5 GM/DL Calcium Level 7.8 MG/DL 7.8 MG/DL Alkaline Phosphatase 65 U/L 69 U/L Aspartate Amino Transf (AST/SGOT) 16 U/L 20 U/L Alanine Aminotransferase (ALT/SGPT) 16 U/L 22 U/L Total Bilirubin 0.6 MG/DL 0.3 MG/DL Sodium Level 141 MEQ/L 141 MEQ/L Potassium Level 3.7 MEQ/L 3.4 MEQ/L Chloride Level 107 MEQ/L 108 MEQ/L Carbon Dioxide Level 27.7 MEQ/L 27.0 MEQ/L Anion Gap 6 MEQ/L 6 MEQ/L Estimat Glomerular Filtration Rate 113 ML/MIN 106 ML/MIN Microbiology Date/Time Source Procedure Growth Status 03/05/18 14:00 Blood Peripheral Aerobic Blood Culture - Preliminary NO GROWTH IN 3 DAYS Resulted 03/05/18 14:00 Blood Peripheral Anaerobic Blood Culture - Preliminary NO GROWTH IN 3 DAYS Resulted 03/05/18 13:50 Blood Peripheral Aerobic Blood Culture - Preliminary NO GROWTH IN 3 DAYS Resulted 03/05/18 13:50 Blood Peripheral Anaerobic Blood Culture - Preliminary NO GROWTH IN 3 DAYS Resulted 03/07/18 14:30 Fluid Pleural Fluid Gram Stain - Final Resulted 03/07/18 14:30 Fluid Pleural Fluid Body Fluid Culture - Preliminary NO GROWTH IN 24 HOURS. Resulted Imaging Chest X-Ray 03/06/18 0821 Signed Impressions: CONCLUSION: No significant interval change with the bilateral pulmonary infiltrates. Chest X-Ray 03/06/18 0000 Signed Impressions: CONCLUSION: Status post right thoracentesis. No pneumothorax. Chest X-Ray 03/05/18 1244 Signed Impressions: CONCLUSION: 1. There are bilateral interstitial and airspace infiltrates in both mid and l ower lung king. These infiltrates have increased compared to the prior study. 2. There continues to be a small to moderate left-sided pleural effusion. The previously noted right effusion has resolved. Physical Exam GENERAL: Frail female, on high flow nasal O2 SKIN: Cool and dry. No generalized rash, no ecchymoses and no evidence of embolic lesions. HEAD: Atraumatic. Normocephalic. No temporal wasting, or tenderness. EYES: [place] conjunctiva. No petechia or hemorrhage. Pupils equal, round and reactive to light. Extraocular movements full and intact. No scleral icterus. No injection or drainage. EARS, NOSE AND THROAT: Nose without bleeding or purulent nasal discharge. Mucous membranes pink and moist. No oral lesions noted. No exudate. No oral thrush. NECK: Trachea midline. Supple and not tender, no meningeal signs CARDIOVASCULAR: Regular rate and rhythm. No murmurs, rubs or gallops heard RESPIRATORY: Better air movement. Decreased sounds at bases. Port looks ok ABDOMEN: Mildly distended, not tender, bowel sounds present and normoactive. No guarding or rebound. No organomegaly. EXTREMITIES: No clubbing, cyanosis, or edema. No joint effusion, has good ROM. No calf tenderness. Well perfused and warm. NEUROLOGICAL: Awakens easily, Non-focal. PSYCHIATRIC: Calm and cooperative. LINE: No evidence of infection Assessment & Plan Remarks IMPRESSION M[place] infiltrates Respiratory failure, due to recurrent pleural effusion Metastatic breast CA (lungs, liver, bone), on chemo Cachexia RECOMMENDATION Continue Cefepime Continue Zithromax Monitor progress Palliative medicine following Orin Viramontes MD March 08, 2018 12:05
--- NOTE | 2018-03-08 13:30 | RADRPT ---
EXAM DATE: 03/08/2018 12:53 PM EDT AGE/SEX: 72 years / Female INDICATIONS: Pleural effusion. CLINICAL DATA: This is the patient's subsequent encounter. Patient reports that signs and symptoms h ave been present for 2 weeks and indicates a pain score of 0/10. MEDICAL/SURGICAL HISTORY: Osteoporosis. Hypothyroidism. Hernia. Right breast cancer with METS t o liver and bone. Bilateral pneumonia. Tonsillectomy. Right breast lumpectomy. Mastectomy. Dilation & curettage. Right kidney stent. Right femur vicki. Chemotherapy. Radiation therapy. Thoracentesis. COMPARISON: No prior [facility] exams available for comparison. [facility], CT chest 2017 [email or web address] imaging, CT chest, 02/02/2018. [email or web address], CT chest, 01/12/2018. MEASUREMENTS: Skin To Parietal Pleura:__1.1 cm Skin To Max Safe Depth:__4.0 cm Estimated Fluid Volume:__833 cc Fluid Composition:__simple FINDINGS: Moderate size right-sided pleural effusion. CONCLUSION: 1. Moderate size right-sided pleural effusion. Electronically signed by: Yousif Westbrook MD 03/08/2018 1:29 PM EDT
[2018-03-08] MEDS: AZITHROMYCIN 250 MG TAB PO SCH (15:00)
[2018-03-08 15:53] LABS: INTERNATIONAL NORMALIZED RATIO 1.1 RATIO; PROTHROMBIN TIME - PATIENT 10.7 SEC (9.8-11.6)
[2018-03-08] MEDS: ENOXAPARIN SODIUM 40 MG/0.4 ML SYRINGE SQ SCH (16:00)
--- NOTE | 2018-03-08 19:48 | HHI.HCPN ---
Reason for visit a. To assist with evaluation and management of symptoms including: dyspnea ; anxiety b. To assist medical decision maker(s) with: better understanding of current medical conditions; weighing benefits/burdens of medical treatment options; making medical treatment decisions. . Subjective/Interval History Patient seen in AM with at bedside. Patient was far more lethargic today for both me and for . She awakens with loud voice and firm touch but is lethargic and only able to answer with one word responses. Denies pain. Won't comment on her breathing status. Hospice met with patient and family last night. Patient had wanted to wait until son arrives from out of town on Wednesday before enrolling with hospice and possibly transferring to Care Center. seems overwhelmed and is very worried that patient will end up at home where he will be unable to care for her adequately. Patient's condition appears to be deteriorating. is aware and knows that she could before son arrives. Would still like to get Pleurex catheter placed. Patient has been afebrile. BP and pulse stable. 02 sats now in the 90s with variable high flow 02 support at 60-65%. Voiding. Last bowel movement 03/07/18. CBC stable. Chemistry stable except albumin continues to fall (now 1.5). Chest ultrasound shows right pleural effusion with estimated 800 cc. Family/friend interactions Spoke with at bedside for 15 minutes. Discussed change in her status, options for ongoing care, purpose of pleural catheter placement, prognosis, etc. . Advance Directives Living Will: Copy in medical record Health Care Surrogate: Copy in medical record Durable Power of Lap Winder: Never completed Advance Directive Specifics Date completed: Living will was written in [place] and dated 05/29/2010 There is a notarized release of health care information from the [facility] that appears to double as a HCS document also dated 05/29/2010 . Health Care Surrogate(s): Charles Lane . Documented care wishes: [facility] Living Will -- patient would NOT want life prolonging measures if she is felt to be terminal or end stage or had a persistent vegetative state. . Significant change in goals: Desiring hospice and comfort measures once catheter is placed. Desires care center placement once enrolled with hospice. . Objective Vital Signs Date Time Temp Pulse Resp B/P (MAP) Pulse Ox O2 Delivery O2 Flow Rate FiO2 03/08/18 12:21 94 High Flow Nasal Cannula 45.00 65 03/08/18 12:10 96 High Flow Nasal Cannula 20.00 60 03/08/18 08:51 92 Carpenter Maintenance 65 03/08/18 08:00 86 03/08/18 08:00 86 32 106/62 (77) 94 03/08/18 07:59 94 High Flow Nasal Cannula 60.00 65 03/08/18 07:00 84 03/08/18 07:00 84 30 105/64 (78) 91 03/08/18 04:00 97 03/08/18 02:00 100 03/08/18 00:00 97 114/72 (86) 94 03/08/18 00:00 97 03/07/18 23:00 108 104/70 (81) 84 03/07/18 22:00 101 110/64 (79) 92 03/07/18 22:00 100 03/07/18 21:00 103 115/62 (79) 92 03/07/18 20:00 102 03/07/18 20:00 Carpenter Maintenance 20.00 60 03/07/18 20:00 97.8 102 32 111/68 (82) 93 . Physical Exam CONSTITUTIONAL/GENERAL: This is a thin, frail appearing patient. Lethargic. Pale. No apparent distress in an ICU bed. TUBES/LINES/DRAINS: high flow 02, peripheral iv SKIN: No jaundice, rashes, or lesions. Ecchymoses on upper extremities. No wounds seen anteriorly. Skin temperature appropriate. Not diaphoretic. EYES: Pupils equal and round. Extraocular motions intact. No scleral icterus. No injection or drainage. Fundi not examined. ENT: Hearing grossly normal. Nose without bleeding or purulent drainage. Throat without visible erythema, exudates, masses, or lesions. NECK: Trachea midline. Supple, nontender. CARDIOVASCULAR: Regular rate and rhythm without murmurs, gallops, or rubs. No JVD. RESPIRATORY/CHEST: Symmetric, unlabored respirations. Chest tube. . Breath sounds equal bilaterally but very diminished. . No wheezes. GASTROINTESTINAL: Abdomen soft, non-tender, nondistended. No hepato-splenomegaly , or palpable masses. No guarding. Bowel sounds present. GENITOURINARY: Without palpable bladder distension. MUSCULOSKELETAL: Extremities without clubbing, cyanosis, or edema. No mottling or clubbing. LYMPHATICS: Not examined. NEUROLOGICAL: Lethargic. Moves all extremities. PSYCHIATRIC: Difficult to assess due to level of responsiveness. . Diagnostic Tests Laboratory Laboratory Tests Test 03/06/18 00:23 03/06/18 11:22 03/06/18 18:00 03/07/18 05:06 Blood Gas Puncture Site LT BRACHIAL Blood Gas Patient Temperature 98.6 Blood Gas HCO3 26 mmol/L (22-26) Blood Gas Base Excess 3.1 mmol/L (-2-2) Blood Gas Oxygen Saturation 97 % (90-100) Arterial Blood pH 7.51 (7.380-7.420) Arterial Blood Partial Pressure CO2 34 mmHg (38-42) Arterial Blood Partial Pressure O2 156 mmHg (61-120) Arterial Blood Oxygen Content 15.8 Vol % (12.0-20.0) Arterial Blood Carboxyhemoglobin 1.4 % (0-4) Arterial Blood Methemoglobin 1.2 % (0-2) Blood Gas Hemoglobin 11.4 G/DL (12.0-16.0) Oxygen Delivery Device NRB Blood Gas Liter Flow 15 L/M Blood Gas Inspired Oxygen 100 % White Blood Count 5.1 TH/MM3 (4.0-11.0) 3.8 TH/MM3 (4.0-11.0) Red Blood Count 3.28 MIL/MM3 (4.00-5.30) 2.67 MIL/MM3 (4.00-5.30) Hemoglobin 11.6 GM/DL (11.6-15.3) 9.0 GM/DL (11.6-15.3) Hematocrit 31.7 % (35.0-46.0) 26.1 % (35.0-46.0) Mean Corpuscular Volume 96.8 FL (80.0-100.0) 97.9 FL (80.0-100.0) Mean Corpuscular Hemoglobin 35.4 PG (27.0-34.0) 33.7 PG (27.0-34.0) Mean Corpuscular Hemoglobin Concent 36.5 % (32.0-36.0) 34.5 % (32.0-36.0) Red Cell Distribution Width 22.5 % (11.6-17.2) 22.5 % (11.6-17.2) Platelet Count 249 TH/MM3 (150-450) 204 TH/MM3 (150-450) Mean Platelet Volume 8.2 FL (7.0-11.0) 8.9 FL (7.0-11.0) CBC Comment AUTO DIFF DIFF FINAL Differential Total Cells Counted 100 Neutrophils % (Manual) 84 % (16-70) Band Neutrophils % 13 % (0-6) Lymphocytes % 2 % (9-44) Monocytes % 1 % (0-8) Neutrophils # (Manual) 4.9 TH/MM3 (1.8-7.7) Differential Comment FINAL DIFF MANUAL Platelet Estimate NORMAL (NORMAL) Platelet Morphology Comment NORMAL (NORMAL) Blood Urea Nitrogen 11 MG/DL (7-18) 11 MG/DL (7-18) Creatinine 0.52 MG/DL (0.50-1.00) 0.53 MG/DL (0.50-1.00) Random Glucose 92 MG/DL (74-106) 225 MG/DL (74-106) Total Protein 5.7 GM/DL (6.4-8.2) 4.8 GM/DL (6.4-8.2) Albumin 1.7 GM/DL (3.4-5.0) 1.6 GM/DL (3.4-5.0) Calcium Level 7.8 MG/DL (8.5-10.1) 7.8 MG/DL (8.5-10.1) Alkaline Phosphatase 86 U/L (45-117) 65 U/L (45-117) Aspartate Amino Transf (AST/SGOT) 23 U/L (15-37) 16 U/L (15-37) Alanine Aminotransferase (ALT/SGPT) 18 U/L (10-53) 16 U/L (10-53) Total Bilirubin 1.2 MG/DL (0.2-1.0) 0.6 MG/DL (0.2-1.0) Sodium Level 140 MEQ/L (136-145) 141 MEQ/L (136-145) Potassium Level 3.5 MEQ/L (3.5-5.1) 3.7 MEQ/L (3.5-5.1) Chloride Level 104 MEQ/L (98-107) 107 MEQ/L (98-107) Carbon Dioxide Level 26.6 MEQ/L (21.0-32.0) 27.7 MEQ/L (21.0-32.0) Anion Gap 9 MEQ/L (5-15) 6 MEQ/L (5-15) Estimat Glomerular Filtration Rate 115 ML/MIN (>89) 113 ML/MIN (>89) Troponin I LESS THAN 0.02 NG/ML B-Type Natriuretic Peptide 59 PG/ML (0-100) Nasal Screen MRSA (PCR) MRSA NOT DETECTED (NOT Neutrophils (%) (Auto) 93.0 % (16.0-70.0) Lymphocytes (%) (Auto) 4.3 % (9.0-44.0) Monocytes (%) (Auto) 2.5 % (0.0-8.0) Eosinophils (%) (Auto) 0.1 % (0.0-4.0) Basophils (%) (Auto) 0.1 % (0.0-2.0) Neutrophils # (Auto) 3.5 TH/MM3 (1.8-7.7) Lymphocytes # (Auto) 0.2 TH/MM3 (1.0-4.8) Monocytes # (Auto) 0.1 TH/MM3 (0-0.9) Eosinophils # (Auto) 0.0 TH/MM3 (0-0.4) Basophils # (Auto) 0.0 TH/MM3 (0-0.2) Test 03/08/18 05:36 03/08/18 15:15 White Blood Count 5.8 TH/MM3 (4.0-11.0) Red Blood Count 2.82 MIL/MM3 (4.00-5.30) Hemoglobin 9.6 GM/DL (11.6-15.3) Hematocrit 27.4 % (35.0-46.0) Mean Corpuscular Volume 97.2 FL (80.0-100.0) Mean Corpuscular Hemoglobin 34.0 PG (27.0-34.0) Mean Corpuscular Hemoglobin Concent 34.9 % (32.0-36.0) Red Cell Distribution Width 22.2 % (11.6-17.2) Platelet Count 233 TH/MM3 (150-450) Mean Platelet Volume 8.7 FL (7.0-11.0) Neutrophils (%) (Auto) 92.2 % (16.0-70.0) Lymphocytes (%) (Auto) 3.5 % (9.0-44.0) Monocytes (%) (Auto) 4.2 % (0.0-8.0) Eosinophils (%) (Auto) 0.0 % (0.0-4.0) Basophils (%) (Auto) 0.1 % (0.0-2.0) Neutrophils # (Auto) 5.4 TH/MM3 (1.8-7.7) Lymphocytes # (Auto) 0.2 TH/MM3 (1.0-4.8) Monocytes # (Auto) 0.2 TH/MM3 (0-0.9) Eosinophils # (Auto) 0.0 TH/MM3 (0-0.4) Basophils # (Auto) 0.0 TH/MM3 (0-0.2) CBC Comment DIFF FINAL Differential Comment Blood Urea Nitrogen 14 MG/DL (7-18) Creatinine 0.56 MG/DL (0.50-1.00) Random Glucose 207 MG/DL (74-106) Total Protein 4.6 GM/DL (6.4-8.2) Albumin 1.5 GM/DL (3.4-5.0) Calcium Level 7.8 MG/DL (8.5-10.1) Alkaline Phosphatase 69 U/L (45-117) Aspartate Amino Transf (AST/SGOT) 20 U/L (15-37) Alanine Aminotransferase (ALT/SGPT) 22 U/L (10-53) Total Bilirubin 0.3 MG/DL (0.2-1.0) Sodium Level 141 MEQ/L (136-145) Potassium Level 3.4 MEQ/L (3.5-5.1) Chloride Level 108 MEQ/L (98-107) Carbon Dioxide Level 27.0 MEQ/L (21.0-32.0) Anion Gap 6 MEQ/L (5-15) Estimat Glomerular Filtration Rate 106 ML/MIN (>89) Prothrombin Time 10.7 SEC (9.8-11.6) Prothromb Time International Ratio 1.1 RATIO Activated Partial Thromboplast Time 27.8 SEC (24.3-30.1) . Result Diagram: 03/08/18 0536 03/08/18 0536 Microbiology Microbiology Date/Time Source Procedure Growth Status 03/07/18 14:30 Fluid Pleural Fluid Gram Stain - Final Resulted 03/07/18 14:30 Fluid Pleural Fluid Body Fluid Culture - Preliminary NO GROWTH IN 24 HOURS. Resulted . Imaging Last Impressions Chest Ultrasound 03/08/18 0000 Signed Impressions: CONCLUSION: 1. Moderate size right-sided pleural effusion. Chest X-Ray 03/06/18 0821 Signed Impressions: CONCLUSION: No significant interval change with the bilateral pulmonary infiltrates. . Procedures * Pig-tail catheter placement with thoracentesis . Assessment and Plan Disease Oriented Problem List: (1) Breast cancer in female Comment: Metastatic to lungs, nodes, skin, choroid, liver, bone . 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 . (3) Respiratory failure (4) Bilateral pneumonia (5) Hypoalbuminemia (6) Cachexia (7) Anxiety (8) Pain Symptom Scale: (1) Pain 0-10 Scale: Unable to quantify (2) Dyspnea 0-10 Scale: Unable to quantify (3) Anxiety 0-10 Scale: Unable to quantify Pertinent Non-Medical Issues Psychosocial: Supported locally by and daughter. There is also a son and grandchildren in [place]. Spiritual: Worship upbringing. She is not interested in spiritual support at this time -- "I have lost my samm." Legal: Advance directives already scanned into EMR Ethical issues impacting care: Patient is currently capacitated to make her own health care decisions. . Important Contacts Charles Keen (spouse, surrogate) [phone]; [phone] (daughter) [phone] . Prognosis Patient had widely metastatic cancer, has been declining in spite of chemotherapy, and has severe under-nutrition. Life expectancy is probably in the order of weeks to a few months even with aggressive therapy. Pt is appropriate for hospice care at such time that goals become more comfort oriented. . Code Status: No Code Plan == Code Status: Code status was changed to NO CODE per patients request on . was present at bedside when this decision was made. == Decision Making: Patient had been capacitated to make her own health care decisions. She is becoming more lethargic. Should she become incapacitated her and two children are listed as surrogates. Even if patient appears awake, would recommend "shared" decision making with surrogates for important decisions. == Goals of medical treatment: Patient and family now understand that aggressive cancer-directed treatments no longer make sense. Emphasis will be on comfort. They are open to hospice and are just deciding on the timing of enrollment. == Symptoms: * Pain: She has a few different pain syndromes. She gets some vague generalized pain following chemotherapy which responds well to an unknown dose of oxycodone. She also has some osteoarthritis type pain particularly in the shoulders. * Dyspnea: Severe with her pleural effusions. Relieved by thoracentesis. Now breathing relatively comfortably on high flow 02. Considering placement of Pleurevac (no longer a candidate for pleurodesis) * Anxiety: Longstanding problem made worse by facing her own mortality. Dyspnea exacerbates anxiety. Helped by alprazolam * Cachexia: Very poor appetite. == Case discussed with Dr. Gore today by phone. Case discussed with hospice admissions nurse. == Will focus on comfort. Still planning on attempting Pleurevac catheter placement . Would like to transfer to hospice care center once enrolled with hospice. She will need care center due to very high 02 needs. If there is further decline, may want to have patient transfer to care center with chest tube in place with understanding that she will probably in care center over next days. == Palliative care will continue to follow to assist with symptom management and to further clarify goals of medical treatment as the clinical course evolves. . . Time Spent Total Floor Time (mins): 38 (Total floor time included chart review; patient exam; above referenced bedside discussion with ; conversation with Dr. Gore; collaboration with hospice team; collaboration with primary nurse. ) Face to Face Time (mins): 15 >50% Counseling/Coord of Care: Yes Attestation To help prompt me to consider important information that might be impacting today's encounter and assessment, information from prior notes written by myself or my colleagues may have been "brought forward" into today's note. My signature on this note, however, is an attestation that I personally performed the exam, history, and/or decision-making noted today, and, unless otherwise indicated, the interactions with patient, family, and staff as well as the review of records all occurred today. I also attest that the listed assessment and stated plan reflect my best clinical judgment today based on the combination of historical information, prior notes, and today's exam/ interactions. When time spent is documented, it refers only to time spent today by the signer, or if indicated, combined time spent today by collaborating physician/nurse practitioner. . Doug Toney MD March 08, 2018 19:48
--- NOTE | 2018-03-08 19:49 | PD.ONC.PN ---
Subjective Subjective Remarks Increasingly frail and now requiring high flow oxygen. To weak to sit up. Objective Data Date Time Temp Pulse Resp B/P (MAP) Pulse Ox O2 Delivery O2 Flow Rate FiO2 03/08/18 12:21 94 High Flow Nasal Cannula 45.00 65 03/08/18 12:10 96 High Flow Nasal Cannula 20.00 60 03/08/18 08:51 92 Airline Reservation Agent 65 03/08/18 08:00 86 03/08/18 08:00 86 32 106/62 (77) 94 03/08/18 07:59 94 High Flow Nasal Cannula 60.00 65 03/08/18 07:00 84 03/08/18 07:00 84 30 105/64 (78) 91 03/08/18 04:00 97 03/08/18 02:00 100 03/08/18 00:00 97 114/72 (86) 94 03/08/18 00:00 97 03/07/18 23:00 108 104/70 (81) 84 03/07/18 22:00 101 110/64 (79) 92 03/07/18 22:00 100 03/07/18 21:00 103 115/62 (79) 92 03/07/18 20:00 102 03/07/18 20:00 Airline Reservation Agent 20.00 60 03/07/18 20:00 97.8 102 32 111/68 (82) 93 03/08/18 03/08/18 03/08/18 07:00 15:00 23:00 Intake Total 1968 ml Balance 1968 ml Result Diagram: 03/08/18 0536 03/08/18 0536 Laboratory Results Laboratory Tests Test 03/08/18 05:36 03/08/18 15:15 White Blood Count 5.8 TH/MM3 Red Blood Count 2.82 MIL/MM3 Hemoglobin 9.6 GM/DL Hematocrit 27.4 % Mean Corpuscular Volume 97.2 FL Mean Corpuscular Hemoglobin 34.0 PG Mean Corpuscular Hemoglobin Concent 34.9 % Red Cell Distribution Width 22.2 % Platelet Count 233 TH/MM3 Mean Platelet Volume 8.7 FL Neutrophils (%) (Auto) 92.2 % Lymphocytes (%) (Auto) 3.5 % Monocytes (%) (Auto) 4.2 % Eosinophils (%) (Auto) 0.0 % Basophils (%) (Auto) 0.1 % Neutrophils # (Auto) 5.4 TH/MM3 Lymphocytes # (Auto) 0.2 TH/MM3 Monocytes # (Auto) 0.2 TH/MM3 Eosinophils # (Auto) 0.0 TH/MM3 Basophils # (Auto) 0.0 TH/MM3 CBC Comment DIFF FINAL Differential Comment Blood Urea Nitrogen 14 MG/DL Creatinine 0.56 MG/DL Random Glucose 207 MG/DL Total Protein 4.6 GM/DL Albumin 1.5 GM/DL Calcium Level 7.8 MG/DL Alkaline Phosphatase 69 U/L Aspartate Amino Transf (AST/SGOT) 20 U/L Alanine Aminotransferase (ALT/SGPT) 22 U/L Total Bilirubin 0.3 MG/DL Sodium Level 141 MEQ/L Potassium Level 3.4 MEQ/L Chloride Level 108 MEQ/L Carbon Dioxide Level 27.0 MEQ/L Anion Gap 6 MEQ/L Estimat Glomerular Filtration Rate 106 ML/MIN Prothrombin Time 10.7 SEC Prothromb Time International Ratio 1.1 RATIO Activated Partial Thromboplast Time 27.8 SEC Culture Results Microbiology Date/Time Source Procedure Growth Status 03/07/18 14:30 Fluid Pleural Fluid Gram Stain - Final Resulted 03/07/18 14:30 Fluid Pleural Fluid Body Fluid Culture - Preliminary NO GROWTH IN 24 HOURS. Resulted Imaging Studies Last 24 hours Impressions Chest Ultrasound 03/08/18 0000 Signed Impressions: CONCLUSION: 1. Moderate size right-sided pleural effusion. Administered Medications Medications (Trade) Dose Ordered Sig/Betty Route PRN Reason Start Time Stop Time Status Last Admin Dose Admin Enoxaparin Sodium (Lovenox Inj) 40 mg Q24H SQ 03/05/18 16:00 03/07/18 20:31 Senna/Docusate Sodium (Camille-Colace) 1 tab BID PO 03/05/18 21:00 03/07/18 09:29 Cefepime HCl 2000 mg/Sodium Chloride 100 ml @ 200 mls/hr Q8H IV 03/05/18 22:00 03/08/18 06:00 Azithromycin (Zithromax) 500 mg Q24H PO 03/06/18 15:00 03/07/18 14:26 Albuterol/ Ipratropium (Duoneb Neb) 1 ampule Q4HR NEB PRN NEB SOB/WHEEZING 03/05/18 15:15 03/06/18 00:55 Sodium Chloride (NS Flush) 2 ml BID IV FLUSH 03/05/18 21:00 03/08/18 08:25 Acetaminophen/ Hydrocodone Bitart ([place] 10-325 Mg) 1 tab Q4H PRN PO PAIN SCALE 6 TO 10 03/05/18 16:30 03/07/18 22:04 Lactobacillus Acidophilus (Lactinex) 1 tab TID PO 03/05/18 18:00 03/08/18 08:25 Calcium Carbonate (Tums Chew) 500 mg Q2H PRN CHEW indigestion 03/05/18 21:15 03/05/18 21:26 Benzonatate (Tessalon) 100 mg TID PRN PO cough 03/05/18 21:45 03/05/18 22:04 Alprazolam (Xanax) 0.5 mg HS PO 03/05/18 21:45 03/07/18 20:32 Acetaminophen (Tylenol) 650 mg Q4H PRN PO fever 03/06/18 00:45 03/06/18 01:01 Methylprednisolone Sodium Succinate (SoluMEDROL INJ) 40 mg Q6H IV PUSH 03/06/18 09:00 03/08/18 15:00 Dextrose/Sodium Chloride 1,000 ml @ 84 mls/hr [id number] IV 03/06/18 12:00 03/07/18 20:31 Albuterol/ Ipratropium (Duoneb Neb) 1 ampule Q4HR NEB NEB 03/06/18 12:00 03/08/18 16:07 Alprazolam (Xanax) 0.5 mg Q6H PRN PO anxiety 03/06/18 14:00 03/07/18 20:32 Quetiapine Fumarate (SEROquel) 25 mg BID PO 03/06/18 14:00 03/08/18 08:25 Miscellaneous Information ([facility] [place] [facility]) Patient in critical care unit? Ass... [id number] 03/06/18 23:15 03/06/18 23:15 Chlorhexidine Gluconate (Chlorhexidine 2% Cloth) 3 pack DAILY@04 TOPICAL 03/07/18 04:00 03/11/18 04:01 03/07/18 04:00 Objective Remarks GENERAL: increasingly frail and does not have much additional time SKIN: Warm and dry. HEAD: Normocephalic. EYES: No scleral icterus. No injection or drainage. NECK: Supple, trachea midline. No JVD or lymphadenopathy. LYMPHATIC: No adenopathy. CARDIOVASCULAR: Regular rate and rhythm without murmurs. RESPIRATORY: Breath sounds decreased at bases. GASTROINTESTINAL: Abdomen soft, non-tender, nondistended. EXTREMITIES: No cyanosis, or edema. MUSCULOSKELETAL: muscles atrophied. NEUROLOGICAL: weak PSYCHIATRIC: understands she is very ill. Assessment/Plan Assessment 1: she is dying and I do not believe there are additional treatments available. The goal should be comfort. She needs a olivera (placed) and can use port to avoid iv sticks. She will not be able to go home on high flow oxygen, pleureX catheter, IV olivera and with progressive respiratory distress. This would be overwhelming for her and her and they both recognize this. If she stabilizes it would be in their best interest to use the care center. She and her are agreeable and I spoke with Dr. Toney this evening who is supportive of this approach. 2. regarding pain, anxiety, air hunger- will use low dose morphine sulfate ( start at 2 mg iv q 30 minutes PRN) 3: appreciate all the help and suggestions. Joseph Gore MD March 08, 2018 19:49
--- NOTE | 2018-03-08 20:04 | HHI.PR ---
Subjective Remarks 72 YOWF with Metastatic ca, malig pl eff,s/p left pleurodesis Mild sob Rt chest tube draining DW pt has decided for hospice Chest tube clamped US mod pl eff On high flow 02 Objective Vital Signs Vital Signs Date Time Temp Pulse Resp B/P (MAP) Pulse Ox O2 Delivery O2 Flow Rate FiO2 03/08/18 18:00 86 03/08/18 16:00 86 03/08/18 16:00 91 123/85 (98) 92 03/08/18 15:00 88 96 03/08/18 14:00 86 03/08/18 14:00 84 115/71 (86) 96 03/08/18 13:00 88 122/73 (89) 95 03/08/18 12:21 94 High Flow Nasal Cannula 45.00 65 03/08/18 12:10 96 High Flow Nasal Cannula 20.00 60 03/08/18 12:00 88 110/71 (84) 100 03/08/18 12:00 86 03/08/18 10:00 86 03/08/18 08:51 92 Port Engineer 65 03/08/18 08:00 86 03/08/18 08:00 86 32 106/62 (77) 94 03/08/18 07:59 94 High Flow Nasal Cannula 60.00 65 03/08/18 07:00 84 03/08/18 07:00 84 30 105/64 (78) 91 03/08/18 04:00 97 03/08/18 02:00 100 03/08/18 00:00 97 114/72 (86) 94 03/08/18 00:00 97 03/07/18 23:00 108 104/70 (81) 84 03/07/18 22:00 101 110/64 (79) 92 03/07/18 22:00 100 03/07/18 21:00 103 115/62 (79) 92 I/O 03/07/18 03/07/18 03/07/18 03/08/18 03/08/18 03/08/18 07:00 15:00 23:00 07:00 15:00 23:00 Intake Total 320 ml 460 ml 1968 ml Output Total 600 ml Balance -280 ml 460 ml 1968 ml Intake Oral 320 ml 360 ml 960 ml IV Total 100 ml 1008 ml Output Urine Total 450 ml Chest Tube Drainage Total 150 ml # Voids 3 4 2 # Bowel Movements 0 0 0 0 Result Diagram: 03/08/1836 03/08/1836 Objective Remarks GENERAL: Thin built WF, mild sob SKIN: Warm and dry. HEAD: Normocephalic. EYES: No scleral icterus. No injection or drainage. NECK: Supple, trachea midline. No JVD or lymphadenopathy. CARDIOVASCULAR: Regular rate and rhythm without murmurs, gallops, or rubs. RESPIRATORY: Breath sounds equal bilaterally. No accessory muscle use. Rt chest tube draining GASTROINTESTINAL: Abdomen soft, non-tender, nondistended. MUSCULOSKELETAL: No cyanosis, or edema. BACK: Nontender without obvious deformity. No CVA tenderness. A/P Assessment and Plan Malig pleural effusion Dysnoea Metastatic ca Weight loss PLAN: DW pt and her daughter Wants to proceed with Pleurex Hospice consulted Will Clamp chest tube Supplement 02 with high flow Right Pleurex Cathetor placement in Yohannes Bearden MD March 08, 2018 20:04
[2018-03-08] MEDS: ALPRAZolam 0.5 MG TAB PO PRN (20:53)
[2018-03-08] MEDS: ALPRAZolam 0.5 MG TAB PO SCH (20:53)
[2018-03-08] MEDS: MORPHINE SULFATE 2 MG/ML SYRINGE IV PRN ×2 (20:54→21:56)
[2018-03-08] MEDS: MORPHINE SULFATE 4 MG/ML INJ IV PRN (23:57)
[2018-03-09] VITALS (15 sets, daily range): BP systolic 105–128; BP diastolic 59–80; PULSE 77–121; RESP 12–19; TEMP 97.6–98.8; O2SAT 86–100
[2018-03-09] MEDS: CHLORHEXIDINE GLUCONATE 2 % 1 PACK (2 CLOTHS)(taper/protocol) TOPICAL SCH (04:00)
[2018-03-09] MEDS: RESP: ALBUTEROL 2.5 MG/IPRATROPIUM 0.5 MG NEB (SCH) NEB ×4 (04:41→15:32)
[2018-03-09] MEDS: methylPREDNISolone SOD SUCC 40 MG/1 ML VIAL IV PUSH SCH ×3 (05:55→14:59)
[2018-03-09] MEDS: CEFEPIME INJ 2,000 MG in SODIUM CHLORIDE 0.9% INJ 100 ML IV SCH ×2 (05:55→15:00)
[2018-03-09] MEDS: QUEtiapine FUMARATE 25 MG TAB PO SCH (07:41)
[2018-03-09] MEDS: LACTOBACILLUS ACIDOPHILUS TAB PO SCH ×2 (07:41→13:00)
[2018-03-09] MEDS: DOCUSATE SODIUM 50 MG/SENNA 8.6 MG TAB PO SCH (07:41)
[2018-03-09] MEDS: SODIUM CHLORIDE 0.9% FLUSH 10 ML FLUSH IV FLUSH SCH (07:42)
--- NOTE | 2018-03-09 07:46 | PD.ONC.PN ---
Subjective Subjective Remarks no better and sob with mild wheezing and too weak to sit up Objective Data Date Time Temp Pulse Resp B/P (MAP) Pulse Ox O2 Delivery O2 Flow Rate FiO2 03/09/18 06:00 77 03/09/18 04:00 84 03/09/18 04:00 97.8 85 107/64 (78) 94 03/09/18 03:00 86 113/63 (80) 94 03/09/18 02:00 85 03/09/18 02:00 93 108/67 (81) 93 03/09/18 01:00 89 117/65 (82) 94 03/09/18 00:00 93 105/69 (81) 96 03/09/18 00:00 96 03/09/18 00:00 98.8 93 105/69 (81) 96 03/08/18 23:00 93 119/71 (87) 96 03/08/18 22:00 92 115/74 (88) 98 03/08/18 22:00 93 03/08/18 21:00 99 117/72 (87) 91 03/08/18 20:43 93 High Flow Nasal Cannula 45.00 65 03/08/18 20:39 94 High Flow Nasal Cannula 50.00 65 03/08/18 20:00 99.0 96 123/91 (102) 91 03/08/18 20:00 96 03/08/18 20:00 Banking Pin Adjuster 20.00 60 03/08/18 18:00 86 03/08/18 16:00 86 03/08/18 16:00 91 123/85 (98) 92 03/08/18 15:00 88 96 03/08/18 14:00 86 03/08/18 14:00 84 115/71 (86) 96 03/08/18 13:00 88 122/73 (89) 95 03/08/18 12:21 94 High Flow Nasal Cannula 45.00 65 03/08/18 12:10 96 High Flow Nasal Cannula 20.00 60 03/08/18 12:00 88 110/71 (84) 100 03/08/18 12:00 86 03/08/18 10:00 86 03/08/18 08:51 92 Banking Pin Adjuster 65 03/08/18 08:00 86 03/08/18 08:00 86 32 106/62 (77) 94 03/08/18 07:59 94 High Flow Nasal Cannula 60.00 65 03/09/18 03/09/18 03/09/18 07:00 15:00 23:00 Intake Total 912 ml Output Total 1400 ml Balance -488 ml Result Diagram: 03/08/18 0536 03/08/18 0536 Laboratory Results Laboratory Tests Test 03/08/18 15:15 Prothrombin Time 10.7 SEC Prothromb Time International Ratio 1.1 RATIO Activated Partial Thromboplast Time 27.8 SEC Culture Results Microbiology Date/Time Source Procedure Growth Status 03/07/18 14:30 Fluid Pleural Fluid Gram Stain - Final Resulted 03/07/18 14:30 Fluid Pleural Fluid Body Fluid Culture - Preliminary NO GROWTH IN 24 HOURS. Resulted Administered Medications Medications (Trade) Dose Ordered Sig/Betty Route PRN Reason Start Time Stop Time Status Last Admin Dose Admin Enoxaparin Sodium (Lovenox Inj) 40 mg Q24H SQ 03/05/18 16:00 03/07/18 20:31 Senna/Docusate Sodium (Camille-Colace) 1 tab BID PO 03/05/18 21:00 03/07/18 09:29 Cefepime HCl 2000 mg/Sodium Chloride 100 ml @ 200 mls/hr Q8H IV 03/05/18 22:00 03/09/18 05:55 Azithromycin (Zithromax) 500 mg Q24H PO 03/06/18 15:00 03/07/18 14:26 Albuterol/ Ipratropium (Duoneb Neb) 1 ampule Q4HR NEB PRN NEB SOB/WHEEZING 03/05/18 15:15 03/06/18 00:55 Sodium Chloride (NS Flush) 2 ml BID IV FLUSH 03/05/18 21:00 03/08/18 20:54 Acetaminophen/ Hydrocodone Bitart ([place] 10-325 Mg) 1 tab Q4H PRN PO PAIN SCALE 6 TO 10 03/05/18 16:30 03/07/18 22:04 Lactobacillus Acidophilus (Lactinex) 1 tab TID PO 03/05/18 18:00 03/08/18 08:25 Calcium Carbonate (Tums Chew) 500 mg Q2H PRN CHEW indigestion 03/05/18 21:15 03/05/18 21:26 Benzonatate (Tessalon) 100 mg TID PRN PO cough 03/05/18 21:45 03/05/18 22:04 Alprazolam (Xanax) 0.5 mg HS PO 03/05/18 21:45 03/08/18 20:53 Acetaminophen (Tylenol) 650 mg Q4H PRN PO fever 03/06/18 00:45 03/06/18 01:01 Methylprednisolone Sodium Succinate (SoluMEDROL INJ) 40 mg Q6H IV PUSH 03/06/18 09:00 03/09/18 05:55 Dextrose/Sodium Chloride 1,000 ml @ 84 mls/hr [id number] IV 03/06/18 12:00 03/08/18 21:06 Albuterol/ Ipratropium (Duoneb Neb) 1 ampule Q4HR NEB NEB 03/06/18 12:00 03/08/18 20:36 Alprazolam (Xanax) 0.5 mg Q6H PRN PO anxiety 03/06/18 14:00 03/08/18 20:53 Quetiapine Fumarate (SEROquel) 25 mg BID PO 03/06/18 14:00 03/08/18 20:53 Miscellaneous Information ([facility] [place] [facility] [place] Patient in critical care unit? Ass... [id number] .XX 03/06/18 23:15 03/06/18 23:15 Chlorhexidine Gluconate (Chlorhexidine 2% Cloth) 3 pack DAILY@04 TOPICAL 03/07/18 04:00 03/11/18 04:01 03/07/18 04:00 Morphine Sulfate (Morphine Inj) 2 mg Q30M PRN IV PAIN SCALE 4 TO 10 03/08/18 22:45 03/08/18 23:57 Objective Remarks GENERAL: approaching end of life. SKIN: Warm and dry. HEAD: Normocephalic. EYES: No scleral icterus. No injection or drainage. NECK: Supple, trachea midline. No JVD or lymphadenopathy. LYMPHATIC: No adenopathy. CARDIOVASCULAR: Regular rate and rhythm without murmurs. RESPIRATORY: decreased sounds at bases GASTROINTESTINAL: Abdomen soft, non-tender, nondistended. EXTREMITIES: No cyanosis, or edema. MUSCULOSKELETAL: severe atrophy of muscles. . NEUROLOGICAL: No obvious focal deficit. Awake, alert, and oriented x3. PSYCHIATRIC: exhausted and passive. Assessment/Plan Assessment 1: she will have pleurex catheter placed today and once this is done would transfer out of ICU and to floor where it will be more peaceful and family can be present. Shortly after would consider transition to care center if she survives long enough to allow for this 2: I have asked nurses to access the port and not draw blood from peripheral veins as was taking place this am with little success and obvious discomfort 3: morphine IV worked for comfort and will be continued. 4: little else to add. Would transition to supportive care given no remaining effective treatments for her breast cancer and declining performance status. Joseph Gore MD March 09, 2018 07:46
--- NOTE | 2018-03-09 09:15 | HHI.PR ---
Subjective Remarks Poor recovery thus far. Not likely to improve at this point. Hospice planned. Objective Vital Signs Date Time Temp Pulse Resp B/P (MAP) Pulse Ox O2 Delivery O2 Flow Rate FiO2 03/09/18 08:32 92 High Flow Nasal Cannula 30.00 03/09/18 06:00 77 03/09/18 04:00 84 03/09/18 04:00 97.8 85 107/64 (78) 94 03/09/18 03:00 86 113/63 (80) 94 03/09/18 02:00 85 03/09/18 02:00 93 108/67 (81) 93 03/09/18 01:00 89 117/65 (82) 94 03/09/18 00:00 93 105/69 (81) 96 03/09/18 00:00 96 03/09/18 00:00 98.8 93 105/69 (81) 96 03/08/18 23:00 93 119/71 (87) 96 03/08/18 22:00 92 115/74 (88) 98 03/08/18 22:00 93 03/08/18 21:00 99 117/72 (87) 91 03/08/18 20:43 93 High Flow Nasal Cannula 45.00 65 03/08/18 20:39 94 High Flow Nasal Cannula 50.00 65 03/08/18 20:00 99.0 96 123/91 (102) 91 03/08/18 20:00 96 03/08/18 20:00 Yield Analyst 20.00 60 03/08/18 18:00 86 03/08/18 16:00 86 03/08/18 16:00 91 123/85 (98) 92 03/08/18 15:00 88 96 03/08/18 14:00 86 03/08/18 14:00 84 115/71 (86) 96 03/08/18 13:00 88 122/73 (89) 95 03/08/18 12:21 94 High Flow Nasal Cannula 45.00 65 03/08/18 12:10 96 High Flow Nasal Cannula 20.00 60 03/08/18 12:00 88 110/71 (84) 100 03/08/18 12:00 86 03/08/18 10:00 86 I/O 03/08/18 03/08/18 03/08/18 03/09/18 03/09/18 5/30/18 07:00 15:00 23:00 07:00 15:00 23:00 Intake Total 1968 ml 1100 ml 912 ml Output Total 1400 ml Balance 1968 ml 1100 ml -488 ml Intake Oral 960 ml 0 ml IV Total 1008 ml 1100 ml 912 ml Output Urine Total 1400 ml Chest Tube Drainage Total 0 ml # Voids 4 2 # Bowel Movements 0 0 Result Diagram: 03/08/18 0536 03/08/18535 Objective Remarks GENERAL: NAD, A&Ox3 HEAD: Normocephalic. NECK: Supple, trachea midline. No lymphadenopathy. EYES: No scleral icterus. No injection or drainage. CARDIOVASCULAR: Regular rate and rhythm without murmurs, gallops, or rubs. RESPIRATORY: Breath sounds equal bilaterally. No accessory muscle use. GASTROINTESTINAL: Abdomen soft, non-tender, nondistended. MUSCULOSKELETAL: No cyanosis, or edema. SKIN: Warm and dry. NEURO: No focal neurological deficitis. A/P Problem List: (1) Respiratory failure ICD Code: J96.90 - Respiratory failure, unspecified, unspecified whether with hypoxia or hypercapnia (2) Severe sepsis ICD Code: A41.9 - Sepsis, unspecified organism; R65.20 - Severe sepsis without septic shock (3) Sepsis ICD Code: A41.9 - Sepsis, unspecified organism (4) SIRS (systemic inflammatory response syndrome) ICD Code: R65.10 - Systemic inflammatory response syndrome (SIRS) of non- infectious origin without acute organ dysfunction Status: Acute (5) Bilateral pneumonia ICD Code: J18.9 - Pneumonia, unspecified organism Status: Acute (6) Hypoxia ICD Code: R09.02 - Hypoxemia Status: Acute Assessment and Plan 72-year-old female admitted secondary to bilateral pneumonia with immunocompromise and severe sepsis Continue to monitor in ICU. Monitor pulse ox. Continue high flow oxygen. Plan to transition to pigtail catheter instead of chest tube. Follow CBC and BMP. Follow cultures. Follow cytology. Continue steroids and respiratory support. Plan for comfort care. Acute respiratory failure Pleural effusion Etiology may be related to cancer or infection of both Patient had been transferred to ICU yesterday Continue to monitor in ICU Chest tube was placed and has helped Cytology and cultures ordered for chest tube fluid Severe sepsis Tachycardia Tachypnea Lactic acidosis Improvement is seen in these factors Follow on telemetry Oxygen as needed IV hydration Monitor renal function and liver function Monitor vital signs closely Bilateral pneumonia Increased risk in setting of immunocompromise cefepime Azithromycin Vancomycin ID following Follow pulse ox Oxygen as needed Probiotic 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
[2018-03-09] MEDS: MORPHINE SULFATE 4 MG/ML INJ IV PRN (09:57)
[2018-03-09] MEDS ORDERED: ceFAZolin 2 GM PREMIX 50 ML ONE (10:53)
[2018-03-09] MEDS: DEXT 5%-NACL 0.9% 1000 ML INJ 1,000 ML IV SCH (11:30)
[2018-03-09] MEDS ORDERED: LIDOCAINE 1%/EPINEPHrine 1:100,000 SOLN 30 ML VIAL ONE (11:35)
[2018-03-09] MEDS ORDERED: MIDAZOLAM HCL 2 MG/2 ML VIAL ONE (11:36)
--- NOTE | 2018-03-09 12:32 | PD.RAD ---
Post Procedure Progress Note Pre Procedure Diagnosis: (1) Malignant pleural effusion Post Procedure Diagnosis: (1) Malignant pleural effusion Procedure Date: March 09, 2018 Supervising Radiologist: Hussein Floyd Estimated blood loss: none Anesthesia: Local, Conscious Sedation Plan of Activity Patient to Unit: Nursing Unit Patient Condition: Poor Additional Comments: Pleurex cath placed without difficulty. Full dictated report to follow See PACS Report for procedural detail/treatment Hussein Floyd MD March 09, 2018 12:32
--- NOTE | 2018-03-09 13:56 | HHI.DS ---
Discharge Summary Admission Date March 05, 2018 at 15:13 Discharge Date: March 09, 2018 Admitting Diagnosis Bilateral pneumonia, hypoxia, sirs (1) Severe sepsis ICD Code: A41.9 - Sepsis, unspecified organism; R65.20 - Severe sepsis without septic shock Diagnosis: Principal (2) Bilateral pneumonia ICD Code: J18.9 - Pneumonia, unspecified organism Diagnosis: Principal Status: Acute (3) Hypoxia ICD Code: R09.02 - Hypoxemia Diagnosis: Principal Status: Acute Procedures Chest Tube Brief History - From Admission Mrs. Keen is a 72 year old female. She has bilateral breast cancer and is currently under chemotherapy. Her last chemotherapy session was 4 days ago. She says since then she has become progressively short of breath. She has had problems with pleural effusions after treatments before. She came into the emergency department and is found to have bilateral pneumonia. She meets sepsis criteria. Her leukocytosis is not increased but this is likely related to renal compromise. She has not had fevers at home. She has had chills. She has no other complaints at this time. Mild cough is present without significant productivity. CBC/BMP: 03/08/18 0536 03/08/18 0536 Significant Findings Laboratory Tests Test 03/06/18 18:00 03/07/18 05:06 03/08/18 05:36 03/08/18 15:15 White Blood Count 3.8 TH/MM3 (4.0-11.0) Red Blood Count 2.67 MIL/MM3 (4.00-5.30) 2.82 MIL/MM3 (4.00-5.30) Hemoglobin 9.0 GM/DL (11.6-15.3) 9.6 GM/DL (11.6-15.3) Hematocrit 26.1 % (35.0-46.0) 27.4 % (35.0-46.0) Red Cell Distribution Width 22.5 % (11.6-17.2) 22.2 % (11.6-17.2) Neutrophils (%) (Auto) 93.0 % (16.0-70.0) 92.2 % (16.0-70.0) Lymphocytes (%) (Auto) 4.3 % (9.0-44.0) 3.5 % (9.0-44.0) Lymphocytes # (Auto) 0.2 TH/MM3 (1.0-4.8) 0.2 TH/MM3 (1.0-4.8) Random Glucose 225 MG/DL (74-106) 207 MG/DL (74-106) Total Protein 4.8 GM/DL (6.4-8.2) 4.6 GM/DL (6.4-8.2) Albumin 1.6 GM/DL (3.4-5.0) 1.5 GM/DL (3.4-5.0) Calcium Level 7.8 MG/DL (8.5-10.1) 7.8 MG/DL (8.5-10.1) Potassium Level 3.4 MEQ/L (3.5-5.1) Chloride Level 108 MEQ/L (98-107) PE at Discharge awake and alert, tachypneic, tachycardic anicteric on 100% NRB anicteric decrease breath sounds, tight, some inspiratory wheezes tachycardic abdomen soft, nontender extremities no edema Hospital Course Mrs. Keen is a 72 year old female. She is admitted with pneumonia and chronic pleural effusion. She has end stage cancer with metastasis prior to admit. Her effusion progressed and she entered respiratory distress on her second day here. She was transferred to the ICU and a chest tube was placed; stability was attained with high flow oxygen. Through time she has not improved. Patient and family are electing for Hospice care at this point. Resolution of her current state is not expected. She is expected to continue to deteriorate. She is discharge to Hospice today. Pt Condition on Discharge: Deteriorating Discharge Disposition: Hospice/Med Facility Discharge Time: <= 30 minutes Discharge Instructions DIET: Follow Instructions for: As Tolerated, No Restrictions Activities you can perform: Regular-No Restrictions Follow up Referrals: PCP Follow-up - 2 Weeks Discontinued Medications: Alprazolam (Alprazolam) 0.5 Mg Tab 0.5 MG PO HS, TAB 0 Refills Alprazolam (Alprazolam) 0.25 Mg Tab 0.25 MG PO Q4H PRN for ANXIETY, TAB [address] (Aspirin DR) 81 Mg Tabdr 81 MG PO DAILY, TAB 0 Refills Calcium Carbonate (Calcium 600) 600 Mg Calcium (1500 Mg) Tab 1200 MG PO BID for Nutritional Supplement, TAB Cholecalciferol (Vitamin D3) 2,000 Unit Cap 2000 UNITS PO DAILY for Nutritional Supplement, #1 BOTTLE 0 Refills Hydrocodone/Acetaminophen (Hydrocodone-Acetamin 5-325 mg) 5 Mg-325 Mg Tablet 1 TAB PO Q6HR PRN for PAIN SCALE 3 TO 5, #12 TAB Levofloxacin (Levofloxacin) 750 Mg Tablet 750 MG PO DAILY for Infection, #5 TAB 0 Refills Levothyroxine (Levothyroxine) 112 Mcg Tab 112 MCG PO DAILY, #30 TAB 0 Refills Multiple Vitamin (Multiple Vitamin) 1 Tab 1 TAB PO DAILY for Nutritional Supplement, TAB 0 Refills Ondansetron (Zofran) 4 Mg Tab 4 MG PO Q6HR PRN for NAUSEA OR VOMITING, TAB 0 Refills Prednisone (21) 10 mg tab Dose Pack (Prednisone (21) 10 mg tab Dose Pack) 10 Mg Pack 10 MG PO DIRECTED for Inflammation, #1 DSPK 0 Refills Hussein Simpson MD March 09, 2018 13:56
--- NOTE | 2018-03-09 14:15 | RADRPT ---
EXAM DATE: 03/09/2018 1:56 PM EDT AGE/SEX: 72 years / Female INDICATIONS: Status post thoracentesis. Metastatic breast cancer. CLINICAL DATA: This is the patient's initial encounter. Patient reports that signs and symptoms have been present for 1 day and indicates a pain score of Nonresponsive. MEDICAL/SURGICAL HISTORY: . Osteoporosis. Hypothyroidism. Hernia. Right breast cancer with MET S to liver and bone. Bilateral pneumonia. Tonsillectomy. Chemotherapy. Radiation therapy. . Right breast Mastectomy. Right kidney stent. Right femur vicki. COMPARISON: [facility] – [place], CHEST EXPIRATION ONLY, 02/28/2018. . FINDINGS: A single AP view of the chest was obtained and demonstrates a mild interval decrease in the left pleu ral effusion. There is no thorax. Hazy opacity remains in both lungs greatest in the lung bases. The heart size is within normal limits. The right-sided implantable port catheter remains in place. The b bryon structures are intact. CONCLUSION: No interval decrease in left effusion with no pneumothorax status post thoracentesis. Hazy infiltrate remains in both lungs. Electronically signed by: Harinder Govea MD 03/09/2018 2:13 PM EDT
--- NOTE | 2018-03-09 14:48 | RADRPT ---
EXAM DATE: 03/09/2018 1:33 PM EDT AGE/SEX: 72 years / Female INDICATIONS: Patient with history of breast cancer. SOB. Now has bilateral pneumonia. CLINICAL DATA: This is the patient's initial encounter. Patient reports that signs and symptoms have been present for 1 week and indicates a pain score of 5/10. MEDICAL/SURGICAL HISTORY: Carcinoma, breast. pleural effusion metastatic cancer to liver and robert ne Chest tube, right. rt leg fracture repair right kidney stent mastectomy tonsillectomy abdominal h ernia repair COMPARISON: [facility], CHEST EXPIRATION ONLY, 03/09/2018. . FLUORO TIME (min): 5.2 IMAGE SERIES: 3 ACCESS SITE: SEDATION TIME (min): 45 MEDICATION(S): 1 mg midazolam (Versed) IV 50 mcg fentanyl (Sublimaze) IV DEVICE(S): 15 Mongolian mL catheter . . PROCEDURE: 1. Fluoroscopically guided chest tube placement. 2. Conscious sedation with continuous EKG and oximetry monitoring. The risks, benefits and alternatives to the procedure were explained to the patient and her . Verbal and written consent was obtained. The site was prepped in sterile fashion. Full home appliance tech nique was used, including cap, mask, sterile gloves and gown and a large sterile sheet. Hand hygiene and 2% chlorhexidine and/or betadine/alcohol prep was utilized per protocol for cutaneous antisepsis . The skin and subcutaneous tissues were infiltrated with local anesthetic solution. The Pleurx drainage catheter was tunneled across the right mid axillary region to the patient's exist ing chest tube. The patient's existing chest tube was accessed using sterile technique. A 0.035 wire was advanced through the tube and coiled within the thorax. The existing chest tube was removed. The peel-away sheath was advanced over a wire and positioned within the thorax. The initial attempt to ad harris the Pleurx catheter into the thorax was unsuccessful as the sheath collapsed at the entrance si te to the chest wall. The chest tube was replaced. This was placed Pleur-evac suction. The incision s ite was enlarged. A new peel-away sheath was advanced into the thorax. The Pleurx catheter was easily advanced through the sheath and into the cavity thoracic. This was placed to Pleur-evac suction. Blanka roximately 1 L of pleural fluid was removed. There was reinflation of the right lung. Post procedure images demonstrate satisfactory position of the tube. The catheter was sutured in place and a Percu -Stay was applied. Conscious sedation was performed with the prescribed dosages and duration as above in the presence of an independent trained radiology nurse to assist in the monitoring of the patient. EKG and oximetry remained stable throughout the procedure. The patient tolerated the procedure well and there were n o complications. The patient was sent to post anesthesia recovery in stable condition. CONCLUSION: 1. Uncomplicated placement of a Pleurx drainage catheter as above. 2. Chest x-ray for follow-up is pending. Electronically signed by: Hussein Floyd MD 03/09/2018 2:46 PM EDT
[2018-03-09] MEDS: AZITHROMYCIN 250 MG TAB PO SCH (14:58)
--- NOTE | 2018-03-09 17:15 | HHI.HCPN ---
Reason for visit a. To assist with evaluation and management of symptoms including: dyspnea ; anxiety b. To assist medical decision maker(s) with: better understanding of current medical conditions; weighing benefits/burdens of medical treatment options; making medical treatment decisions. . Subjective/Interval History Met with patient and in AM. Patient is arousable, but lethargic. She denies pain/sob. She has received 2 mg IV doses of morphine at around midnight and at around 10 am this AM. Nurse reports she appears far more comfortable after dosing. No other significant changes overnight. Patient is scheduled to have Pleurevac catheter inserted later this AM. . Family/friend interactions at bedside. He notes her ongoing decline. He agrees that best option at this time is to have her enrolled with hospice and discharged to hospice care center bed (he prefers [facility]) after pleural catheter is placed. He wants her kept comfortable. Though one of the sons is planning to fly in on Wednesday, understands that she might before then and would prefer that she be kept comfortable rather than attempts being made to keep her wakeful , eating, etc, and being uncomfortable. The hospice admissions nurse arrives while I am with . All questions answered. . Advance Directives Living Will: Copy in medical record Health Care Surrogate: Copy in medical record Durable Power of Personal Service Workers: Never completed Advance Directive Specifics Date completed: Living will was written in [place] and dated 05/29/2010 There is a notarized release of health care information from the [facility] that appears to double as a HCS document also dated 05/29/2010 . Health Care Surrogate(s): Charles Lane . Documented care wishes: [facility] Living Will -- patient would NOT want life prolonging measures if she is felt to be terminal or end stage or had a persistent vegetative state. . Significant change in goals: Plans are to transfer from MICU to hospice care center bed following placement of pleural catheter today. . Objective Vital Signs Date Time Temp Pulse Resp B/P (MAP) Pulse Ox O2 Delivery O2 Flow Rate FiO2 03/09/18 14:00 109 120/66 (84) 97 03/09/18 14:00 109 03/09/18 13:30 116 115/60 (78) 100 03/09/18 13:00 115 114/59 (77) 100 03/09/18 12:45 119 12 112/63 (79) 100 03/09/18 12:30 121 14 112/71 (85) 100 03/09/18 12:00 108 03/09/18 12:00 97.6 108 19 120/76 (91) 97 03/09/18 10:00 104 03/09/18 08:32 92 High Flow Nasal Cannula 30.00 03/09/18 08:00 97.6 99 128/80 (96) 86 03/09/18 08:00 99 03/09/18 07:00 Nasal Cannula 60 Humidified 03/09/18 06:00 77 03/09/18 04:00 84 03/09/18 04:00 97.8 85 107/64 (78) 94 03/09/18 03:00 86 113/63 (80) 94 03/09/18 02:00 85 03/09/18 02:00 93 108/67 (81) 93 03/09/18 01:00 89 117/65 (82) 94 03/09/18 00:00 93 105/69 (81) 96 03/09/18 00:00 96 03/09/18 00:00 98.8 93 105/69 (81) 96 03/08/18 23:00 93 119/71 (87) 96 03/08/18 22:00 92 115/74 (88) 98 03/08/18 22:00 93 03/08/18 21:00 99 117/72 (87) 91 03/08/18 20:43 93 High Flow Nasal Cannula 45.00 65 03/08/18 20:39 94 High Flow Nasal Cannula 50.00 65 03/08/18 20:00 99.0 96 123/91 (102) 91 03/08/18 20:00 96 03/08/18 20:00 Grease Packer 20.00 60 03/08/18 18:00 86 Intake & Output 03/09/18 03/09/18 07:00 19:00 Intake Total 2012 ml Output Total 1400 ml Balance 612 ml Intake Oral 0 ml IV Total 2012 ml Output Urine Total 1400 ml Chest Tube Drainage Total 0 ml # Voids 2 # Bowel Movements 0 . Physical Exam CONSTITUTIONAL/GENERAL: This is a thin, frail appearing patient. Lethargic. Pale. No apparent distress in an ICU bed. Arouses to voice, but remains lethargic. TUBES/LINES/DRAINS: high flow 02, peripheral iv SKIN: No jaundice, rashes, or lesions. Ecchymoses on upper extremities. No wounds seen anteriorly. Skin temperature appropriate. Not diaphoretic. EYES: Pupils equal and round. Extraocular motions intact. No scleral icterus. No injection or drainage. Fundi not examined. ENT: Hearing grossly normal. Nose without bleeding or purulent drainage. Throat without visible erythema, exudates, masses, or lesions. NECK: Trachea midline. CARDIOVASCULAR: Regular rate and rhythm without murmurs, gallops, or rubs. No JVD. RESPIRATORY/CHEST: Symmetric, unlabored respirations. Chest tube. . Breath sounds equal bilaterally but very diminished. . No wheezes. GASTROINTESTINAL: Abdomen soft, non-tender, nondistended. No hepato-splenomegaly , or palpable masses. No guarding. Bowel sounds present. GENITOURINARY: Without palpable bladder distension. MUSCULOSKELETAL: Extremities without clubbing, cyanosis, or edema. No mottling or clubbing. LYMPHATICS: Not examined. NEUROLOGICAL: Lethargic. Moves all extremities. PSYCHIATRIC: Difficult to assess due to level of responsiveness. . Diagnostic Tests Laboratory Laboratory Tests Test 03/06/18 18:00 03/07/18 05:06 03/08/18 05:36 03/08/18 15:15 Nasal Screen MRSA (PCR) MRSA NOT DETECTED (NOT White Blood Count 3.8 TH/MM3 (4.0-11.0) 5.8 TH/MM3 (4.0-11.0) Red Blood Count 2.67 MIL/MM3 (4.00-5.30) 2.82 MIL/MM3 (4.00-5.30) Hemoglobin 9.0 GM/DL (11.6-15.3) 9.6 GM/DL (11.6-15.3) Hematocrit 26.1 % (35.0-46.0) 27.4 % (35.0-46.0) Mean Corpuscular Volume 97.9 FL (80.0-100.0) 97.2 FL (80.0-100.0) Mean Corpuscular Hemoglobin 33.7 PG (27.0-34.0) 34.0 PG (27.0-34.0) Mean Corpuscular Hemoglobin Concent 34.5 % (32.0-36.0) 34.9 % (32.0-36.0) Red Cell Distribution Width 22.5 % (11.6-17.2) 22.2 % (11.6-17.2) Platelet Count 204 TH/MM3 (150-450) 233 TH/MM3 (150-450) Mean Platelet Volume 8.9 FL (7.0-11.0) 8.7 FL (7.0-11.0) Neutrophils (%) (Auto) 93.0 % (16.0-70.0) 92.2 % (16.0-70.0) Lymphocytes (%) (Auto) 4.3 % (9.0-44.0) 3.5 % (9.0-44.0) Monocytes (%) (Auto) 2.5 % (0.0-8.0) 4.2 % (0.0-8.0) Eosinophils (%) (Auto) 0.1 % (0.0-4.0) 0.0 % (0.0-4.0) Basophils (%) (Auto) 0.1 % (0.0-2.0) 0.1 % (0.0-2.0) Neutrophils # (Auto) 3.5 TH/MM3 (1.8-7.7) 5.4 TH/MM3 (1.8-7.7) Lymphocytes # (Auto) 0.2 TH/MM3 (1.0-4.8) 0.2 TH/MM3 (1.0-4.8) Monocytes # (Auto) 0.1 TH/MM3 (0-0.9) 0.2 TH/MM3 (0-0.9) Eosinophils # (Auto) 0.0 TH/MM3 (0-0.4) 0.0 TH/MM3 (0-0.4) Basophils # (Auto) 0.0 TH/MM3 (0-0.2) 0.0 TH/MM3 (0-0.2) CBC Comment DIFF FINAL DIFF FINAL Differential Comment Blood Urea Nitrogen 11 MG/DL (7-18) 14 MG/DL (7-18) Creatinine 0.53 MG/DL (0.50-1.00) 0.56 MG/DL (0.50-1.00) Random Glucose 225 MG/DL (74-106) 207 MG/DL (74-106) Total Protein 4.8 GM/DL (6.4-8.2) 4.6 GM/DL (6.4-8.2) Albumin 1.6 GM/DL (3.4-5.0) 1.5 GM/DL (3.4-5.0) Calcium Level 7.8 MG/DL (8.5-10.1) 7.8 MG/DL (8.5-10.1) Alkaline Phosphatase 65 U/L (45-117) 69 U/L (45-117) Aspartate Amino Transf (AST/SGOT) 16 U/L (15-37) 20 U/L (15-37) Alanine Aminotransferase (ALT/SGPT) 16 U/L (10-53) 22 U/L (10-53) Total Bilirubin 0.6 MG/DL (0.2-1.0) 0.3 MG/DL (0.2-1.0) Sodium Level 141 MEQ/L (136-145) 141 MEQ/L (136-145) Potassium Level 3.7 MEQ/L (3.5-5.1) 3.4 MEQ/L (3.5-5.1) Chloride Level 107 MEQ/L (98-107) 108 MEQ/L (98-107) Carbon Dioxide Level 27.7 MEQ/L (21.0-32.0) 27.0 MEQ/L (21.0-32.0) Anion Gap 6 MEQ/L (5-15) 6 MEQ/L (5-15) Estimat Glomerular Filtration Rate 113 ML/MIN (>89) 106 ML/MIN (>89) Prothrombin Time 10.7 SEC (9.8-11.6) Prothromb Time International Ratio 1.1 RATIO Activated Partial Thromboplast Time 27.8 SEC (24.3-30.1) . Result Diagram: 03/08/18 0536 03/08/18 0536 Microbiology Microbiology Date/Time Source Procedure Growth Status 03/07/18 14:30 Fluid Pleural Fluid Gram Stain - Final Resulted 03/07/18 14:30 Fluid Pleural Fluid Body Fluid Culture - Preliminary NO GROWTH IN 48 HOURS. Resulted . Imaging Last Impressions Catheter Placement X-Ray 03/09/18 0652 Signed Impressions: CONCLUSION: 1. Uncomplicated placement of a Pleurx drainage catheter as above. 2. Chest x-ray for follow-up is pending. Chest X-Ray 03/09/18 1330 Signed Impressions: CONCLUSION: No interval decrease in left effusion with no pneumothorax status post thoracen tesis. Hazy infiltrate remains in both lungs. Chest Ultrasound 03/08/18 0000 Signed Impressions: CONCLUSION: 1. Moderate size right-sided pleural effusion. . Procedures * Pig-tail catheter placement with thoracentesis * Pleurx catheter placement 03/09/18 . Assessment and Plan Disease Oriented Problem List: (1) Breast cancer in female Comment: Metastatic to lungs, nodes, skin, choroid, liver, bone . 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 . (3) Respiratory failure (4) Bilateral pneumonia (5) Hypoalbuminemia (6) Cachexia (7) Anxiety (8) Pain Symptom Scale: (1) Pain 0-10 Scale: Unable to quantify Comment: Denies pain today. However, required two doses of IV morphine overnight. . (2) Dyspnea 0-10 Scale: Unable to quantify Comment: Dyspnea controlled with high flow 02 and with opiates. . (3) Anxiety 0-10 Scale: Unable to quantify Comment: Controlled with alprazolam. . Pertinent Non-Medical Issues Psychosocial: Supported locally by and daughter. There is also a son and grandchildren in [place]. Spiritual: Religious upbringing. She is not interested in spiritual support at this time -- "I have lost my samm." Legal: Advance directives already scanned into EMR Ethical issues impacting care: Patient is rapidly losing capacity to make her own health care decisions. is surrogate. . Important Contacts Charles Keen (spouse, surrogate) [phone]; [phone] (daughter) [phone] . Prognosis Patient had widely metastatic cancer, has been declining in spite of chemotherapy, and has severe under-nutrition. Life expectancy is probably in the order of days to weeks even with aggressive therapy. Pt is appropriate for hospice care now that goals are comfort oriented. . Code Status: No Code Plan == Code Status: Code status was changed to NO CODE per patients request on . was present at bedside when this decision was made. == Decision Making: Patient had been capacitated to make her own health care decisions. She is becoming more lethargic. Should she become incapacitated her and two children are listed as surrogates. Even if patient appears awake, would recommend "shared" decision making with surrogates for important decisions. == Goals of medical treatment: Patient and family now understand that aggressive cancer-directed treatments no longer make sense. Emphasis will be on comfort. agrees to transfer to hospice care after placement of PleurX catheter today. == Symptoms: * Pain: She has a few different pain syndromes. She gets some vague generalized pain following chemotherapy which responds well to an unknown dose of oxycodone. She also has some osteoarthritis type pain particularly in the shoulders. Now receiving IV morphine with good results. No further recommendations at this time. * Dyspnea: Severe with her pleural effusions. Relieved by thoracentesis. Now breathing relatively comfortably on high flow 02. PleurX catheter to be placed today. * Anxiety: Longstanding problem made worse by facing her own mortality. Dyspnea exacerbates anxiety. Helped by alprazolam. No further recommendations at this time. * Cachexia: Very poor appetite. == Case discussed with hospice admissions nurse. Provided orders for hospice care once transfer takes place. . Attestation To help prompt me to consider important information that might be impacting today's encounter and assessment, information from prior notes written by myself or my colleagues may have been "brought forward" into today's note. My signature on this note, however, is an attestation that I personally performed the exam, history, and/or decision-making noted today, and, unless otherwise indicated, the interactions with patient, family, and staff as well as the review of records all occurred today. I also attest that the listed assessment and stated plan reflect my best clinical judgment today based on the combination of historical information, prior notes, and today's exam/ interactions. When time spent is documented, it refers only to time spent today by the signer, or if indicated, combined time spent today by collaborating physician/nurse practitioner. . Doug Toney MD March 09, 2018 17:14
== END 2018-03-09 16:10 | disposition hospice, inpatient (51) | DRG 871 ==
LOC: NEPE 12:25 → NEDA 15:13 → HCIN 17:20 → HIMN 03-06 09:15
PROVIDERS: ADMIT Hospitalist; ATTEND Hospitalist
PROC: 0B9N30Z Drainage of Right Pleura with Drainage Device, Percutaneous Approach (ICD-10-PCS; 2018-03-06)
PROC: 0W9930Z Drainage of Right Pleural Cavity with Drainage Device, Percutaneous Approach (ICD-10-PCS; principal; 2018-03-08)
DX: A41.9 Sepsis, unspecified organism (principal); J18.9 Pneumonia, unspecified organism; J96.01 Acute respiratory failure with hypoxia; J90 Pleural effusion, not elsewhere classified; R64 Cachexia; C78.7 Secondary malignant neoplasm of liver and intrahepatic bile duct; C50.911 Malignant neoplasm of unspecified site of right female breast; C79.51 Secondary malignant neoplasm of bone; Z68.1 Body mass index [BMI] 19.9 or less, adult; R65.20 Severe sepsis without septic shock; Z92.21 Personal history of antineoplastic chemotherapy; F41.1 Generalized anxiety disorder; F32.9 Major depressive disorder, single episode, unspecified; E03.9 Hypothyroidism, unspecified; Z51.5 Encounter for palliative care; E88.09 Other disorders of plasma-protein metabolism, not elsewhere classified; Z90.11 Acquired absence of right breast and nipple; Z87.891 Personal history of nicotine dependence
CPT/HCPCS: 32550; 32551; 36600; 71045; 71046; 75989; 76604; 76937; 77003; 80053; 82550; 82805; 83605; 83735; 83880; 84484; 85007; 85025; 85027; 85610; 85730; 87040; 87070; 87205; 87641; 88112; 93005; 93306; 94640; 94664; 96365; 99152; 99153; C1729; C1769; C1894; J0456; J0690; J0692; J1650; J2250; J2270; J2920; J3010; J3370; J7030; J7042; J7050